=== PATIENT | female | born 1995 | race Caucasian/White ===

== ENCOUNTER 2022-06-02 12:36 | Emergency (ER) | payer OTHER, SELFPAY ==
--- NOTE | ~2022-06-02 | XR_ITS ---
EXAMINATION: XR chest 2V DATE: 06/02/2022 13:09 INDICATION: Right-sided chest pain TECHNIQUE: PA and lateral views of the chest are obtained. COMPARISON: 01/16/2019 FINDINGS: The lungs are free of acute opacities. No pleural effusion or pneumothorax. The cardiomedia stinal silhouette is normal. The visualized bones and soft tissues are unremarkable. IMPRESSION: 1. No acute cardiopulmonary abnormality. Reviewed, dictated and finalized at location A.
[2022-06-02 12:40] VITALS: BP 105/65; PULSE 65; RESP 16; TEMP 36.7; O2SAT 100
--- NOTE | 2022-06-02 13:01 | ECG_ITS ---
Measurements Intervals [place] Rate: 63 P: 74 WV: 172 QRS: 6 QRSD: 130 T: 42 QT: 417 QTc: 428 Interpretive Statements SINUS RHYTHM RIGHT BUNDLE BRANCH BLOCK ABNORMAL ECG NO PREVIOUS ECG AVAILABLE FOR COMPARISON Electronically Signed On 06-02-2022 14:48:14 CDT by Danilo Shi M.D.
--- NOTE | 2022-06-02 13:01 | ED.GENADULT ---
HPI - General Adult General Chief complaint: Chest Pain Stated complaint: Right Side Pain Source: patient Mode of arrival: ambulatory Limitations: no limitations History of Present Illness HPI narrative: Patient presents for evaluation of right-sided chest pain for the last 4 days. She indicates pain is intermittent, particularly noticeable with inspiration, sneezing, coughing, movement. She cannot identify any precipitating cause or injury. She had similar pain in the past with rib fractures. She states her maternal grandmother had breast cancer and her mom underwent preventative bilateral mastectomy. Patient does perform home self breast exams and they have been normal. She also had a breast exam at her [facility] approximately 2 months ago which was normal. No discharge from the nipple. No redness. She tried taking 400 mg of ibuprofen without much improvement in her symptoms or after. At rest she has a dull aching sensation rated 4/10 in severity, but with inspiration/sneezing/movement, her pain increases to a 7 out of 10 in severity and feels sharp. No significant cough or SOB. She had COVID in the summer of 2020. No additional complaints or concerns. Related Data Home Medications Medication Instructions Recorded Confirmed adgmuaiouhlq-Ru-bxbd-minerals 27 1 tablet PO DAILY 04/16/22 04/29/22 mg-0.4 mg tablet (One Daily Women's) Allergies Allergy/AdvReac Type Severity Reaction Status Date / Time Penicillins Allergy Severe Hives / Verified 06/02/22 12:52 Red Face amoxicillin Allergy Intermediate Hives Verified 06/02/22 12:52 Review of Systems Review of Systems: CONSTITUTIONAL: Denies fever, chills, or sweats. EYES: Denies visual changes, redness, or discharge. ENT: Denies rhinorrhea, congestion, sore throat, or otalgia. CARDIOVASCULAR: Reports right sided chest pain. Denies palpitations, or edema. RESPIRATORY: Denies cough or dyspnea. GASTROINTESTINAL: Denies abdominal pain, nausea, vomiting, or diarrhea. GENITOURINARY: Denies dysuria or hematuria. SKIN: Denies rash or itching. MUSCULOSKELETAL: Denies back pain, joint pain, or myalgia. NEUROLOGIC: Denies headache, numbness, dizziness, or weakness. PSYCHIATRIC: Denies anxiety or depression. [facility] Past Medical History Medical History (Updated 06/02/22 @ 13:29 by Lalo Miller, [employer], ) History of HPV infection Surgical History Surgical History No pertinent past surgical history Family History Family History Grandparent Breast cancer Other Carcinoma of colon Social History Social History Smoking status: Never smoker Alcohol intake: current Alcohol use details: social Substance use: never Living arrangements: with family Gender identity (if verbalized by the patient): Female Sexual Orientation (if Verbalized by the Patient): Straight or Heterosexual Spiritual care concerns: No Exam Narrative: GENERAL: Well-appearing, well-nourished, and in no acute distress. HEAD: Normocephalic, atraumatic. EYES: PERRLA and EOMI. ENT: Nares clear, no rhinorrhea or epistaxis. Mucous membranes moist. Oropharynx without tonsillar hypertrophy exudate or other lesions. Bilateral TMs pearly gómez nonbulging NECK: Supple. No adenopathy or masses. No carotid bruits or JVD CHEST: Clear to auscultation. No respiratory distress. No wheezes rales or rhonchi BREAST: exam performed in company of nurse, Candie. There is tenderness in right breast from 7-11 o'clock positions. There is no palpable mass. No redness. No peau d'orange. No discharge or drainage. HEART: Regular rate and rhythm. No murmur heard. Normal peripheral pulses. ABDOMEN: Soft, nontender, nondistended, normal active bowel sounds. EXTREMITIES: Normal range of motion. No edema. SKIN: Warm, dry, no jacob
== END 2022-06-02 13:31 | disposition home or self-care (01) ==
PROVIDERS: Emergency Provider Nurse Practitioner
DX: R07.89 Other chest pain (principal); I45.10 Unspecified right bundle-branch block
CPT/HCPCS: 71046; 93005; 99213; G0463

== ENCOUNTER 2022-06-03 10:50 | Emergency (ER) | payer OTHER, SELFPAY ==
[2022-06-03] VITALS (26 sets, daily range): BP systolic 100–124; BP diastolic 54–76; PULSE 63–75; RESP 14–19; TEMP 36.9; O2SAT 99–100
--- NOTE | ~2022-06-03 | XR_ITS ---
EXAMINATION: XR chest 2V DATE: 06/03/2022 11:44 INDICATION: Chest pain TECHNIQUE: PA and lateral views of the chest are obtained. COMPARISON: 06/02/2022 FINDINGS: The lungs are free of acute opacities. No pleural effusion or pneumothorax. The cardiomedia stinal silhouette is normal. The visualized bones and soft tissues are unremarkable. IMPRESSION: 1. No acute cardiopulmonary abnormality. Reviewed, dictated and finalized at location A.
--- NOTE | 2022-06-03 11:01 | ECG_ITS ---
Measurements Intervals [place] Rate: 66 P: 78 ID: 171 QRS: -2 QRSD: 125 T: 44 QT: 399 QTc: 418 Interpretive Statements SINUS RHYTHM INCOMPLETE RIGHT BUNDLE-BRANCH BLOCK COMPARED TO ECG 06/02/2022 13:19:33 NO SIGNIFICANT CHANGES Electronically Signed On 06-03-2022 14:04:44 CDT by Judson Allen M.D.
--- NOTE | 2022-06-03 11:15 | ED.OVERDOSE ---
HPI - Overdose General Chief Complaint: Overdose Stated Complaint: pt took 8 muscle relaxers Time Seen by Provider: 06/03/22 10:58 History of Present Illness HPI Narrative: 26-year-old female presents emergency room for evaluation of suspected overdose. Patient was accompanied by her significant other to the emergency room. History was obtained from both the patient and her significant other. Patient states that her and her significant other have been in a disagreement for the last 2 weeks, and she became angry and admits to taking 5-8 10 mg Flexeril tablets at about 930 this morning. Patient denies any known history of a suicidal ideation. Presently patient is complaining of being tired. Denies any other complaints at this time Related Data Home Medications Medication Instructions Recorded Confirmed gpnofuzkliro-Rd-tiwz-minerals 27 1 tablet PO DAILY 04/16/22 04/29/22 mg-0.4 mg tablet (One Daily Women's) Allergies Allergy/AdvReac Type Severity Reaction Status Date / Time Penicillins Allergy Severe Hives / Verified 06/02/22 12:52 Red Face amoxicillin Allergy Intermediate Hives Verified 06/02/22 12:52 Review of Systems Review of Systems: CONSTITUTIONAL: Denies fever, chills, or sweats. EYES: Denies visual changes, redness, or discharge. ENT: Denies rhinorrhea, congestion, sore throat, or otalgia. CARDIOVASCULAR: Denies chest pain, palpitations, or edema. RESPIRATORY: Denies cough or dyspnea. GASTROINTESTINAL: Denies abdominal pain, nausea, vomiting, or diarrhea. GENITOURINARY: Denies dysuria or hematuria. SKIN: Denies rash or itching. MUSCULOSKELETAL: Denies back pain, joint pain, or myalgia. NEUROLOGIC: Denies headache, numbness, dizziness, or weakness. PSYCHIATRIC: Reports depression. [facility] Past Medical History Medical History History of HPV infection Surgical History Surgical History No pertinent past surgical history Family History Family History Grandparent Breast cancer Other Carcinoma of colon Social History Social History Smoking status: Never smoker Alcohol intake: current Alcohol use details: social Substance use: never Gender identity (if verbalized by the patient): Female Sexual Orientation (if Verbalized by the Patient): Straight or Heterosexual Spiritual care concerns: No Exam Narrative: GENERAL: Well-appearing, well-nourished, no physical limitations, and in no acute distress. HEAD: Normocephalic, atraumatic. EYES: Conjunctivae normal, PERRLA and EOMI. ENT: External nose normal, Nares clear, no rhinorrhea or epistaxis. Mucous membranes moist. Oropharynx without tonsillar hypertrophy exudate or other lesions. External ears normal, bilateral TMs normal bilaterally NECK: Supple. CHEST: Clear to auscultation. No respiratory distress. No wheezes rales or rhonchi. No tenderness. HEART: Regular rate and rhythm. No murmur heard. Normal peripheral pulses. ABDOMEN: Soft, nontender, nondistended, normal active bowel sounds. BACK: No CVA tenderness; No cervical/thoracic/lumbar tenderness, step-offs, bony abnormality; FROM EXTREMITIES: Normal range of motion. No edema. No clubbing or cyanosis SKIN: Warm, dry, no rash. No noted wounds NEURO: No focal deficits. Alert and oriented x3. MAEW. CN's II-XI intact bilaterally, normal gait PSYCH: Cooperative. Normal mood and affect. Course Course Emergency Course: 1200: Poison control called and discussed case. They recommend symptomatic management and patient can be cleared 4-6 hours following ingestion. Vital Signs Vital signs: Vital Signs Temperature 36.9 C 06/03/22 10:57 Pulse Rate 71 06/03/22 10:57 Respiratory Rate 16 06/03/22 10:57 Blood Pressure 124/76 06/03/22 10:57 Pulse Oxi
[2022-06-03 11:32] LABS: Basophils Percent Auto 0.6 % (0.2-1.2); Eosinophils Absolute Auto 0.1 K/mm3 (0-0.3); Eosinophils Percent Auto 1.2 % (0-4.4); Hematocrit 35.9 % (37.0-47.0); Hemoglobin 11.5 g/dL (12.0-15.0); Immature Granulocyte Absolute 0.01 K/mm3 (0.00-0.031); Immature Granulocyte Percent A 0.2 % (0-0.5); Lymphocytes Absolute Auto 1.56 K/mm3 (0.9-3.2); Lymphocytes Percent Auto 30.5 % (18.3-44.2); Mean Corpuscular Volume 90.4 fl (80-100); Mean Platelet Volume 10.2 fl (7.4-10.4); Monocytes Absolute Auto 0.3 K/mm3 (0.1-0.6); Monocytes Percent Auto 4.9 % (2.6-8.5); Neutrophils Absolute Auto 3.2 K/mm3 (1.3-6.7); Neutrophils Percent Auto 62.6 % (45.5-73.1); Platelet Count Result 219 k/mm3 (150-375); Red Blood Count 3.97 M/mm3 (4.2-5.4); Red Cell Distribution Width 13.7 % (11.5-14.5); White Blood Count 5.1 K/mm3 (4.5-10.0)
--- NOTE | 2022-06-03 11:40 | PC.NURSE ---
poison control called at [id number]. spoke with Mary.
[2022-06-03 11:43] LABS: Acetaminophen < 10 ug/mL (10-30); Ethanol < 10 mg/dL (<10); Salicylate < 1.0 mg/dL (2-20)
--- NOTE | 2022-06-03 11:44 | PC.NURSE ---
patient has 5-10mg cyclobenzaprine and 14-800mg ibuprofen that has been given to rn discharge to lock up at this time.
[2022-06-03 11:45] LABS: Alanine Aminotransferase 11 U/L (6-35); Albumin Level 4.7 g/dL (3.5-5.1); Alkaline Phosphatase 52 U/L (38-126); Anion Gap 10 mmol/L (8-16); Aspartate Amino Transferase 20 U/L (14-36); Bilirubin,Total 0.7 mg/dL (0.2-1.3); Blood Urea Nitrogen 13 mg/dL (7-17); Calcium 8.7 mg/dL (8.4-10.2); Carbon Dioxide 28 mmol/L (22-30); Chloride 105 mmol/L (98-107); Estimated CRCL calculation 96 ml/min; Estimated Glomerular Filt Rate > 60; Glucose 96 mg/dL (65-110); Potassium 3.7 mmol/L (3.4-5.0); Sodium 143 mmol/L (137-145)
--- NOTE | 2022-06-03 11:49 | PC.NURSE ---
correction: medication given to boyfriend in the room to take home
[2022-06-03 11:52] LABS: Add Urine Microscopic? YES; Appearance Urine Cloudy (Clear); Bilirubin Urine 1+ (Negative); Blood Urine 3+ (Negative); Color Urine Red (Yellow); Glucose Urine UA Negative (Negative); Ketones Urine 1+ mg/dL (Negative); Leukocyte Esterase Ur 3+ LEU/UL (Negative); Nitrate Urine Positive (Negative); Protein Urine 3+ mg/dL (Negative)
[2022-06-03 11:59] LABS: Troponin I < 0.012 ng/mL (0.000-0.034)
[2022-06-03 11:59] LABS: Bacteria Urine Trace /hpf; RBC Urine >75 /hpf (0-2); Squamous Epithelial Cell Urine Few /hpf (Few); WBC Urine 31-50 /hpf
[2022-06-03 12:59] LABS: Amphetamine Screen Urine Negative (Negative); Barbiturate Screen Urine Negative (Negative); Benzodiazepines Screen Urine Negative (Negative); Cannabinoid Screen Urine Negative (Negative); Cocaine Screen Urine Negative (Negative); Methadone Screen Urine Negative (Negative); Opiate Screen Urine Negative (Negative); Phencyclidine Screen Urine Negative (Negative)
[2022-06-03] MEDS: NITROFURANTOIN MONOHYD MACROCR 100 MG CAP PO (13:12)
--- NOTE | 2022-06-03 15:18 | PC.NURSE ---
spoke with Mi from poison control and she feels comfortable with discharging the patient. states she does not need to follow up further. patient is alert and awake.
--- NOTE | 2022-06-03 15:32 | PC.NURSE ---
spoke with crisis and they will be sending someone out to speak with patient GULSHAN
== END 2022-06-03 16:54 | disposition home or self-care (01) ==
PROVIDERS: Emergency Provider Nurse Practitioner Family
DX: T48.1X2A Poisoning by skeletal muscle relaxants [neuromuscular blocking agents], intentional self-harm, initial encounter (principal); N39.0 Urinary tract infection, site not specified
CPT/HCPCS: 36415; 71046; 80053; 80307; 81001; 84484; 85025; 87086; 87088; 93005; 99284; A9270

== ENCOUNTER 2023-08-06 20:01 | Observation (INO) | payer OTHER, SELFPAY ==
--- NOTE | ~2023-08-06 | MR_ITS ---
EXAMINATION: MR orbits face neck wo/w con DATE: 08/08/2023 09:24 INDICATION: Peripheral vision loss in the left eye. TECHNIQUE: Magnetic resonance imaging (MRI) of the orbits was performed without and with 13 mL Multih ance intravenous contrast. Small zwcpg-gu-pruj sequences of the orbits included coronal and axial T2- weighted FS FSE, T1-weighted FSE and postcontrast T1-weighted FS FSE. COMPARISON: MRI dated 08/07/2020 FINDINGS: Orbits are normal. Symmetric small amount of fluid in the subarachnoid space surrounding the distal a spect of the optic nerves which is within normal limits with the optic nerve sheaths measuring less t monae 5 mm in diameter. No abnormal thickening, T2 signal or enhancement along the bilateral optic nerv es. As well as portions of the brain appear normal with no intraparenchymal signal abnormalities, mas ses or abnormal enhancement. The basal cisterns including the suprasellar cistern are normal. Flow vo ids are seen in the cerebral arteries on the T2-weighted sequences consistent with their expected pat ency. Ventricles are normal and symmetric. IMPRESSION: 1. Normal MRI of the orbits. Reviewed, dictated and finalized at location A.
--- NOTE | ~2023-08-06 | XR_ITS ---
EXAMINATION: XR chest 1V portable DATE: 08/06/2023 22:05 INDICATION: Cerebrovascular accident. TECHNIQUE: A single frontal view of the chest was obtained. COMPARISON: Chest 2 views 06/03/2022 FINDINGS: There is mild scarring at the lung apices. A calcified left lung nodule is consistent with old granulomatous disease. No pleural effusion or pneumothorax. The heart size is normal. There is a closure device in the heart. IMPRESSION: 1. Stable mild scarring at the lung apices. Reviewed, dictated and finalized at location E.
--- NOTE | ~2023-08-06 | CT_ITS ---
EXAMINATION: CT brain wo con DATE: 08/06/2023 20:33 INDICATION: Transient ischemic attack. TECHNIQUE: Computed tomography (CT) of the head was performed without intravenous contrast. The mA wa s adjusted according to patient size. Iterative reconstruction technique was employed. The dose-lengt h product was 605.33 mGy-cm. COMPARISON: None FINDINGS: There is no intracranial hemorrhage, acute infarction, or abnormal intracranial mass lesion . The ventricles are normal in size. The paranasal sinuses are clear. The orbits are normal. The mast oid air cells are normal. There is right frontal scalp soft tissue swelling. IMPRESSION: 1. Normal brain. Reviewed, dictated and finalized at location E. IMPRESSION: 1. Normal brain.
--- NOTE | ~2023-08-06 | MR_ITS ---
EXAMINATION: MR brain/brain stem wo/w con DATE: 08/07/2023 09:55 INDICATION: Transient ischemic episode with left superior homonymous quadrantanopia TECHNIQUE: Magnetic resonance imaging (MRI) of the brain and brainstem was performed without and with 13 mL Multihance intravenous contrast. Sequences included sagittal and axial T1-weighted SE, axial d iffusion-weighted FS SE, axial 3D SWAN, axial T2-weighted FLAIR, and axial T2-weighted FSE. Postcontr ast axial and coronal T1-weighted SE was obtained. Apparent diffusion coefficient (ADC) maps were cre ated. COMPARISON: None. FINDINGS: There are no areas of restricted diffusion to suggest acute infarction. No intracranial hemorrhage or abnormal intracranial mass lesion. There are no intraparenchymal signal abnormalities seen on the ot her pulse sequences. The ventricles are symmetric and normal in size. Basal cisterns including the cain prasellar cistern are patent. No abnormal mass lesions along the course of the optic nerves/visual pa thways. There are no abnormal extra-axial fluid collections. Flow voids are seen in the cerebral kenia anum on the T2-weighted sequences consistent with their expected patency. Visualized orbits and soft tissues are unremarkable. There are no areas of abnormal enhancement on the post contrast images. IMPRESSION: 1. Normal brain MR. Reviewed, dictated and finalized at location A. IMPRESSION: 1. Normal brain MR.
--- NOTE | ~2023-08-06 | CT_ITS ---
CT ANGIOGRAM NECK AND HEAD History: TIA, left-sided vision loss. Technique: Axial noncontrast imaging of the brain was performed. Serial spiral axial images through t he head and neck were then obtained during arterial phase IV injection of 100 cc of Omnipaque 350. 3- D postprocessing and MIP images were then reconstructed on the remote workstation. Dose reduction talisha hnique was used on this scan by utilizing automated exposure control and iterative reconstruction talisha hnique. The dose-length product (DLP) was 1658.39 mGy-cm. CTA neck findings: Bilateral vertebral origins are patent. Bilateral common carotid, internal caroti d, and external carotid arteries are patent. No large vessel occlusion. No stenosis or aneurysm. The proximal right internal carotid artery demonstrates 0% stenosis relative to the normal distal artery lumen diameter. The proximal left internal carotid artery demonstrates 0% stenosis relative to the no rmal distal artery lumen diameter. CTA head findings: Distal vertebral bodies, basilar artery, and posterior cerebral arteries are paten t. Distal internal carotid arteries, middle cerebral arteries, and anterior cerebral arteries are pat ent. No large vessel occlusion. No stenosis or aneurysm. Axial noncontrast imaging of the brain is unremarkable. No acute infarct, intracranial hemorrhage or mass lesion identified. Ventricles and subarachnoid spaces are unremarkable. Rodgers-white differentiati on preserved. Paranasal sinuses and mastoid air cells are clear. Impression: Unremarkable exam. Reviewed, dictated and finalized at location . Impression: Unremarkable exam.
--- NOTE | ~2023-08-06 | MR_ITS ---
EXAMINATION: MRA brain wo con DATE: 08/07/2023 09:55 INDICATION: Transient ischemic episode with left superior homonymous quadrantanopia TECHNIQUE: Magnetic resonance angiography (MRA) of the brain was performed without intravenous contrast by the 3 D [id number] technique. COMPARISON: None. FINDINGS: There is normal flow related signal seen within the vertebral, basilar and internal carotid arteries. The left vertebral artery is dominant. There is no proximal stenosis. There are no aneurysms identif ied. Both A1 and P1 segments are patent. The right P1 segment is diminutive with larger caliber corcoran nt right posterior communicating artery contributing to supply of the right posterior cerebral artery . There also appears to be patent anterior communicating artery. Flow in the cerebral arteries is sym metric. IMPRESSION: 1. Normal brain MR angiogram. Reviewed, dictated and finalized at location A.
[2023-08-06 20:18] VITALS: BP 127/71; PULSE 78; RESP 12; TEMP 37.2; O2SAT 98
[2023-08-06 20:25] LABS: Glucose Point of Care 100 mg/dl (65-105)
--- NOTE | 2023-08-06 20:36 | ECG_ITS ---
Measurements Intervals [place] Rate: 78 P: 71 IN: 183 QRS: 25 QRSD: 129 T: 34 QT: 377 QTc: 430 Interpretive Statements SINUS RHYTHM INDETERMINATE AXIS RIGHT BUNDLE BRANCH BLOCK [120+ ms QRS DURATION, UPRIGHT V1, 40+ ms S IN I/aVL/V4/V5/V6] ABNORMAL ECG COMPARED TO ECG 06/03/2022 11:02:26 RIGHT BUNDLE-BRANCH BLOCK NOW PRESENT Electronically Signed On 08-07-2023 17:10:40 CDT by Danilo Shi M.D.
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
[2023-08-06 21:14] LABS: Basophils Percent Auto 0.6 % (0.2-1.2); Eosinophils Absolute Auto 0.1 K/mm3 (0-0.3); Hematocrit 34.4 % (37.0-47.0); Immature Granulocyte Absolute 0.02 K/mm3 (0.00-0.031); Immature Granulocyte Percent A 0.3 % (0-0.5); Lymphocytes Absolute Auto 2.26 K/mm3 (0.9-3.2); Lymphocytes Percent Auto 36.2 % (18.3-44.2); Mean Corpuscular Hemoglobin 28.3 pg (26-34); Mean Corpuscular Volume 88.4 fl (80-100); Mean Platelet Volume 10.4 fl (7.4-10.4); Monocytes Absolute Auto 0.4 K/mm3 (0.1-0.6); Monocytes Percent Auto 6.7 % (2.6-8.5); Neutrophils Absolute Auto 3.4 K/mm3 (1.3-6.7); Neutrophils Percent Auto 55.2 % (45.5-73.1); Platelet Count Result 224 k/mm3 (150-375); Red Blood Count 3.89 M/mm3 (4.2-5.4); Red Cell Distribution Width 13.5 % (11.5-14.5); White Blood Count 6.2 K/mm3 (4.5-10.0)
[2023-08-06 21:29] LABS: Alanine Aminotransferase 14 U/L (6-35); Albumin Level 4.6 g/dL (3.5-5.1); Alkaline Phosphatase 45 U/L (38-126); Anion Gap 6 mmol/L (8-16); Aspartate Amino Transferase 21 U/L (14-36); Bilirubin,Total 0.6 mg/dL (0.2-1.3); Blood Urea Nitrogen 12 mg/dL (7-17); Calcium 9.1 mg/dL (8.4-10.2); Carbon Dioxide 29 mmol/L (22-30); Chloride 103 mmol/L (98-107); Estimated CRCL calculation 108 ml/min; Estimated Glomerular Filt Rate > 60; Glucose 98 mg/dL (65-110); Potassium 3.4 mmol/L (3.4-5.0); Sodium 138 mmol/L (137-145)
[2023-08-06 21:32] LABS: INR 1.1; Prothrombin Time 14.4 Seconds (11.1-14.7)
[2023-08-06 21:37] LABS: Troponin I < 0.012 ng/mL (0.000-0.034)
[2023-08-06 21:52] VITALS: BP 118/76; PULSE 70; RESP 15; O2SAT 100
[2023-08-07 00:02] VITALS: BP 121/79; PULSE 75; RESP 15; TEMP 36.4; O2SAT 100; BMI 21.0
--- NOTE | 2023-08-07 00:07 | ADMGEN ---
This patient, Cesilia Easley, was admitted to [facility] Surg Room 311-01. Patient/family oriented to hospital policies and general routines including ID bracelet, bed and alarms, visiting hours, pain management, procedures, bathroom and other care routines, personal items, smoking policy, room service/diet, and visiting hours. Information on how to activate the Rapid Response Team has been discussed. Patient/Family are encouraged to report perceived risks to care and to ask questions if they do not understand what they are told or what they should do.
[2023-08-07 06:00] VITALS: BP 111/53; PULSE 65; RESP 15; TEMP 36.4; O2SAT 99
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
[2023-08-07] MEDS: CLOPIDOGREL BISULFATE 75 MG TABLET PO (08:27)
[2023-08-07] MEDS: ASPIRIN 81 MG CHEWABLE TABLET PO (08:27)
[2023-08-07 08:39] LABS: Basophils Percent Auto 0.7 % (0.2-1.2); Eosinophils Absolute Auto 0.1 K/mm3 (0-0.3); Eosinophils Percent Auto 1.2 % (0-4.4); Hematocrit 36.1 % (37.0-47.0); Hemoglobin 11.2 g/dL (12.0-15.0); Immature Granulocyte Absolute 0.01 K/mm3 (0.00-0.031); Immature Granulocyte Percent A 0.2 % (0-0.5); Lymphocytes Percent Auto 36.9 % (18.3-44.2); Mean Corpuscular Hemoglobin 27.9 pg (26-34); Mean Corpuscular Volume 89.8 fl (80-100); Mean Platelet Volume 10.5 fl (7.4-10.4); Monocytes Absolute Auto 0.3 K/mm3 (0.1-0.6); Monocytes Percent Auto 7.1 % (2.6-8.5); Neutrophils Absolute Auto 2.3 K/mm3 (1.3-6.7); Neutrophils Percent Auto 53.9 % (45.5-73.1); Platelet Count Result 219 k/mm3 (150-375); Red Blood Count 4.02 M/mm3 (4.2-5.4); Red Cell Distribution Width 13.3 % (11.5-14.5); White Blood Count 4.3 K/mm3 (4.5-10.0)
[2023-08-07 08:48] LABS: Anion Gap 6 mmol/L (8-16); Blood Urea Nitrogen 11 mg/dL (7-17); Calcium 8.9 mg/dL (8.4-10.2); Carbon Dioxide 25 mmol/L (22-30); Chloride 106 mmol/L (98-107); Estimated CRCL calculation 105 ml/min; Estimated Glomerular Filt Rate > 60; Glucose 92 mg/dL (65-110); Potassium 3.6 mmol/L (3.4-5.0); Sodium 137 mmol/L (137-145)
[2023-08-07 08:55] LABS: Partial Thromboplastin Time 26.8 SECONDS (22.3-36.8)
[2023-08-07] MEDS: SERTRALINE HCL 50 MG TABLET PO (10:05)
[2023-08-07] MEDS: TOPIRAMATE 25 MG TABLET 50 MG PO ×2 (10:05→16:31)
[2023-08-07] MEDS: FERROUS SULFATE 325 MG TABLET DR BY MOUTH (10:05)
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
[2023-08-07 12:00] VITALS: BP 93/46; PULSE 60; RESP 14; TEMP 36.1; O2SAT 98
[2023-08-07 20:20] VITALS: BP 117/54; PULSE 58; RESP 16; TEMP 36.6; O2SAT 99
[2023-08-07] MEDS: ATORVASTATIN 10 MG TABLET PO (21:27)
[2023-08-08 04:41] VITALS: BP 101/47; PULSE 60; RESP 16; TEMP 36.4; O2SAT 98
[2023-08-08] MEDS: SERTRALINE HCL 50 MG TABLET PO (08:47)
[2023-08-08] MEDS: FERROUS SULFATE 325 MG TABLET DR BY MOUTH (08:47)
[2023-08-08] MEDS: CLOPIDOGREL BISULFATE 75 MG TABLET PO (08:47)
[2023-08-08] MEDS: TOPIRAMATE 25 MG TABLET 50 MG PO (08:47)
[2023-08-08] MEDS: ASPIRIN 81 MG CHEWABLE TABLET PO (08:47)
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
--- NOTE | 2023-08-08 11:21 | PC.NURSE ---
IV out, patient signed d/c papers, denies questions. going home by private car, walking out with friend who will be taking her home. all belongings returned.
== END 2023-08-08 11:20 | disposition home or self-care (01) ==
LOC: ANHED 21:31 → ANH3MEDSUR 23:20
PROVIDERS: Nurse Practitioner; Admitting Provider Internal Medicine; Emergency Provider Student in an Organized Health Care Education/Training Program; PCP Internal Medicine; Visit Provider Chiropractor
DX: H53.462 Homonymous bilateral field defects, left side (principal); R22.0 Localized swelling, mass and lump, head; V49.50XA Passenger injured in collision with unspecified motor vehicles in traffic accident, initial encounter; W22.12XA Striking against or struck by front passenger side automobile airbag, initial encounter; R94.31 Abnormal electrocardiogram [ECG] [EKG]; J98.4 Other disorders of lung; R11.2 Nausea with vomiting, unspecified; G43.909 Migraine, unspecified, not intractable, without status migrainosus; R07.9 Chest pain, unspecified; Q21.12 Patent foramen ovale; F10.90 Alcohol use, unspecified, uncomplicated; Z86.73 Personal history of transient ischemic attack (TIA), and cerebral infarction without residual deficits; Z91.52 Personal history of nonsuicidal self-harm; Z79.82 Long term (current) use of aspirin; Z79.02 Long term (current) use of antithrombotics/antiplatelets; Z79.899 Other long term (current) drug therapy
CPT/HCPCS: 36415; 70450; 70496; 70498; 70543; 70544; 70553; 71045; 80048; 80053; 82948; 84484; 85025; 85610; 85730; 93005; 99285; A9270; A9577; G0378; Q9967

== ENCOUNTER 2025-09-28 17:09 | Emergency (ER) | payer OTHER, SELFPAY ==
--- OUTSIDE RECORDS SUMMARY | 2024-04-03 15:30 | XMS_ITS ---
Author Organization [facility]ly [facility] ([address]) Address [address] [place] [address] Care Team Providers Care Superintendent Plant Name Role Phone Taylor Sanchez Primary Care Provider UnavailAkin Garcia Unavailable [phone] Jacek Linn Unavailable Unavailable ZZ-Migration, Provider Unavailable Unavailab le Allergies Allergen (clinical drug ingredient) Drug/Non Drug Allergy documented on EMR Reaction Allergy Type Onset Date Status penicillin G Penicillin G Sodium hives Drug Allergy Active penicillin V Penicillin V Potassium hives Drug Allergy Active Usk Tar Hives Drug Allergy Active predniSONE flushing Drug Allergy Active REASON FOR VISIT Multum To Medispan Conversion Encounter Medications Medication SIG (Take, Route, Frequency, Duration) Notes Start Date End Date Status Topamax 50 MG 1 tab(s) orally 2 times a day; Duration: 30 day(s) Active Plavix 75 MG 1 tab(s) orally once a day; Duration: 30 day(s) Active Sertraline HCl 50 MG 1 tab(s) orally once a day; Duration: 30 day(s) Active Lipitor 10 MG 1 tab(s) orally once a day; Duration: 30 day(s) Active Aspirin 81 MG 1 TAB(S) ORALLY ONCE A DAY; Duration: 30 DAY(S) *Please review and pick correct strength-formulation from Medispan options. If intended option is not shown, discontinue and re-order from Quick Search* Active Encounters Encounter Location Date Provider [place] [address] 04/03/2024 Provider Nato Plan Of Treatment No Information Progress Notes * Kofi MCKENNAB:[birth year] (30 yo F)Acc No.[id number]:04/03/2024 Patient: Cesilia DELGADO Provider: Berlin Kaur :1995 A ge:28 Y S ex:Female Date:04/03/2024 Address:[facility] [address] [id number] Pcp:Taylor Sanchez Subjective: * Chief Complaints: * 1 . Multum To Medispan Conversion Encounter. * Medical History: * Medications: T aking Aspirin 81 MG TABLET 1 TAB(S) ORALLY ONCE A DAY , Notes to Pharmacist: *Please review and pick correct strength-formulation from Medispan options. If intended option is not shown, discontinue and re-order from Quick Search*, Taking Lipitor 10 MG Tablet 1 tab(s) orally once a day , Taking Plavix 75 MG Tablet 1 tab(s) orally once a day , Taking Sertraline HCl 50 MG Tablet 1 tab(s) orally once a day , Taking Topamax 50 MG Tablet 1 tab(s) orally 2 times a day * Allergies: P ine Tar: Hives, predniSONE: flushing, Penicillin G Sodium: hives, Penicillin V Potassium: hives. Objective: * Vitals: Assessment: Plan: * Treatment: * Billing Information: * Visit Code: * Procedure Codes: * Electronic signature of Mahi cee ZZ-Migration on 09/28/2025 at 09:09 PM ACADEMIC ASSISTANT Sign off status: Pending * Provider: Berlin Kaur Date: 0 04/03/2024 Generated for Clementina lira/Davis/Dari on: 1 11/29/2024 09:09 PM ACADEMIC ASSISTANT
--- NOTE | ~2025-09-28 | XR_ITS ---
EXAMINATION: XR chest 2V DATE: 09/28/2025 18:04 INDICATION: Shortness of breath. TECHNIQUE: Frontal and lateral views of the chest were obtained. COMPARISON: Chest x-ray dated 08/06/2023 FINDINGS: Heart size is normal. Lungs are free of acute processes. Leidy and mediastinum are normal. Small granuloma in the periphery of mid left lung is stable. An interatrial septum occlusion device across noted on the prior examination of 08/06/2023 is not seen now. IMPRESSION: 1. No acute pulmonary findings. Reviewed, dictated and finalized at location T. TING INSPECTOR
[2025-09-28 17:14] VITALS: BP 122/70; PULSE 88; RESP 20; TEMP 36.5; O2SAT 100
--- NOTE | 2025-09-28 17:55 | ED_ITS ---
HPI - General Adult General Chief complaint: Chest Pain Stated complaint: Left Side Pain/Shortness of Breath/Dizziness Time Seen by Provider: 09/28/25 17:28 Source: patient, RN notes reviewed and old records reviewed Mode of arrival: ambulatory Limitations: no limitations History of Present Illness HPI narrative: 30 year old female who presents to [facility] care with complaints of having some left sided chest discomfort upper chest to below breast bone area since last evening while just lying on cough. Patient reports that she has had some sinus congestion since Friday and took some Zyrtec D this morning. Patient reports that she had PFO repair initially with metal closure at [facility] but had reaction to metal so they had to do thoracotomy and do Bovine repair was released by her cardiac surgeon Veronika in September of 2024. Patient reports that her pain is mainly with deep breathing. Patient reports that she was having some episodes of slight dizziness with her symptoms. Patient reports no shortness of breath or any diaphoresis , no nausea or vomiting. Patient reports that she worked all day today. Patient reports that she is not taking any cardiac medications at this time MD complaint: left sided chest pain, Onset (ago): day(s) (yesterday evening) Location: chest (left) Severity scale (1-10): 7 Treatments prior to arrival: none Related Data Allergies Allergy/AdvReac Type Severity Reaction Status Date / Time Penicillins Allergy Severe Hives / Verified 09/28/25 17:23 Red Face amoxicillin Allergy Intermediate Hives Verified 09/28/25 17:23 cobalt Allergy Chest Pain Verified 09/28/25 17:23 nickel Allergy Chest Pain Verified 09/28/25 17:23 titanium Allergy Chest Pain Verified 09/28/25 17:23 prednisone AdvReac Flushing Verified 09/28/25 17:23 Review of Systems Review of Systems: CONSTITUTIONAL: Denies fever, chills, or sweats. EYES: Denies visual changes, redness, or discharge. ENT: Denies rhinorrhea, congestion, sore throat, or otalgia. CARDIOVASCULAR: reports episodes of left upper chest pain down to left breast bone since last night, no palpitations, or edema. RESPIRATORY: Denies cough or dyspnea. GASTROINTESTINAL: Denies abdominal pain, nausea, vomiting, or diarrhea. GENITOURINARY: Denies dysuria or hematuria. SKIN: Denies rash or itching. MUSCULOSKELETAL: Denies back pain, joint pain, or myalgia. NEUROLOGIC: Denies headache, numbness, or weakness. PSYCHIATRIC: Denies anxiety or depression. All systems reviewed & are unremarkable except as noted in HPI and below PMFSH Past Medical History Medical History PFO (patent foramen ovale) History of TIA (transient ischemic attack) December 2022 Vaginal symptom History of HPV infection Surgical History Surgical History S/P patent foramen ovale closure March 2023 No pertinent past surgical history Family History Family History Grandparent Breast cancer Other Carcinoma of colon No pertinent past surgical history Social History Social History Smoking status: Never smoker Alcohol intake: current Drinks per week: 1 Alcohol use details: social Substance use: never Lack of Transportation: No Lack of Food: Never True Current Housing: I Have Housing Concerned About Future Housing: No Difficulty Paying Gas/Electric Bills: No Difficulty Paying for Meds: No Currently Unemployed: No Education: Associate Degree Difficulty w/ Childcare or Family Care: No Living arrangements: with family Gender identity (if verbalized by the patient): Female Sexual Orientation (if Verbalized by the Patient): Straight or Heterosexual Spiritual care concerns: No Comments At time of signature, agree with nursing past medical, surgical, social and family history. There is no relevant family history pertinent to the presenting complaint Exam Narrative: GENERAL: Well-appearing, well-nourished, and in no acute distress. HEAD: Normocephalic, atraumatic. EYES: PERRLA and EOMI. ENT: Nares clear, no rhinorrhea or epistaxis. Mucous membranes moist.TM's normal with throat pink without swelling NECK: Supple.no lymphadenopathy CHEST: Clear to auscultation. No respiratory distress. pain left chest no tachypnea or any retractions no cough noted SAO2 100% on room air HEART: Regular rate and rhythm. No murmur heard. Normal peripheral pulses.denies any palpitation nausea or any diaphoresis ABDOMEN: Soft, nontender, nondistended, normal active bowel sounds. EXTREMITIES: Normal range of motion. No edema. SKIN: Warm, dry, no rash. NEURO: No focal deficits. Alert and oriented x3.states some dizziness with her symptoms Course Course Level of Care: Express Care Visit Vital Signs Vital signs: Vital Signs Temperature 36.5 C 09/28/25 17:14 Pulse Rate 88 09/28/25 17:14 Respiratory Rate 20 09/28/25 17:14 Blood Pressure 122/70 09/28/25 17:14 Pulse Oximetry 100 09/28/25 17:14 Oxygen Delivery Room Air 09/28/25 17:14 Temperature 36.5 C 09/28/25 17:14 Pulse Rate 88 09/28/25 17:14 Respiratory Rate 20 09/28/25 17:14 Blood Pressure 122/70 09/28/25 17:14 Pulse Oximetry 100 09/28/25 17:14 Oxygen Delivery Room Air 09/28/25 17:14 reviewed Transfer Transfered to: [place] Transportation: Other (private car with family for further evaluation) Transfer rationale: pain with deep breathing chest pain to left side of chest history of repair PFO Accepting physician: Billy Transfer comments: To [place] ED with family member for further evaluation of chest pain with increase with deep breathing MDM MDM Narrative Medical decision making narrative: 30 year old female with 24 hour history of left sided chest pain with history of PFO repair and prior TIA. Patient requires further evaluation than can be performed in express care setting needs further labs and evaluation. Vs stable with lungs clear to auscultation increased discomfort voiced with deep breathing. 183 Transfer to ED at [facility] with report of patient present condition VS, PMH and testing done in express care to Jackie SORIANO with Dr Cervantes accepting patient for transfer. Patient awaiting family member to accompany to ED does not want to be transported via ambulance. Patient received 324 mg of aspirin while in express care. Differential Diagnosis Differential Diagnosis: Differential diagnostic considerations for chest pain?include?ACS, aortic dissection, pneumothorax, pulmonary embolus, sierra/pericarditis, angina, STEMI, esophageal abnormality, GI etiology, pneumonia, rib fracture, biliary colic, atypical/non-cardiac (MSK, etc). Imaging Data Attestation: I personally reviewed and interpreted this imaging study as follows: My impression: no acute cardiopulmonary findings Radiologist's impression: ITS Impressions Chest X-Ray 09/28/25 18:05 IMPRESSION: 1. No acute pulmonary findings. [address] [employer] [place] [id number] XRay Report Signed Patient: Cesilia Easley : 1995 MR#: [id number] Age: 30 Acct:[id number] Loc: [facility] ADM Date: 09/28/[address]: Ordering Physician: Carline Raya APRN Date of Service: 09/28/25 Procedure(s): XR chest 2V Accession Number(s): [id number] cc: Daniel, Taylor MCRAE; Carline Raya APRN~ EXAMINATION: XR chest 2V DATE: 09/28/2025 18:04 INDICATION: Shortness of breath. TECHNIQUE: Frontal and lateral views of the chest were obtained. COMPARISON: Chest x-ray dated 08/06/2023 FINDINGS: Heart size is normal. Lungs are free of acute processes. Leidy and mediastinum are normal. Small granuloma in the periphery of mid left lung is stable. An interatrial septum occlusion device across noted on the prior examination of 08/06/2023 is not seen now. IMPRESSION: 1. No acute pulmonary findings. Reviewed, dictated and finalized at location T. S INSTALLER TECHNICIAN Please be advised this is a medical document. It is intended for [id number] communication. It is written in medical language and may contain unfamiliar abbreviations or verbiage. Medical documents are intended to carry relevant information, facts as evident, and the clinical opinion of the practitioner at the time of the encounter. This report may have been done utilizing a voice recognition system. Attempts have been made to correct errors. However, there may be uncorrected grammatical, spelling, and recognition errors present. The file time of this note does not necessarily represent the time of service. Dictated By: Dilma Roth 09/28/25 1805 Signed By: <Electronically signed by Dilma Roth in OV> ECG Data EKG #1: Attestation: I personally reviewed and interpreted this ECG as follows: ECG completion date: 09/28/25 ECG completion time: 18:10 Prior ECG tracings: available for review Ischemic changes: other (inferior changes) Interpretation: sinus rhythm with incomplete RBBB, rate 82, MO 173ms, QRS 117ms,AS623hm normal rate, sinus rhythm and RBBB (incomplete) Critical Care Time Critical Care Time Critical Care Time: No Discharge Plan Discharge Clinical Impression: Atypical chest pain Patient Disposition: Acute Care Hospital Condition: Stable Patient Language: Montserratian Prescriptions: No Action cyclobenzaprine 5 mg tablet 5 mg PO TID PRN (Reason: muscle spasm) Qty: 20 0RF ibuprofen 800 mg tablet 800 mg PO TID PRN (Reason: pain) Qty: 30 0RF Follow-up/Referrals: Daniel,MD Taylor [Primary Care Provider, Unknown] Time of Disposition: 19:17 Quality [place] Coma Scale Eyes: Open Verbal: Oriented and Alert Motor: Follows Commands [place] Coma Total Score: 15
[2025-09-28] MEDS: ASPIRIN 81 MG CHEWABLE TABLET 324 MG PO (18:31)
--- OUTSIDE RECORDS SUMMARY | 2025-09-28 21:07 | XMS_ITS | Encounter Summary ---
Author Organization [facility] Address [address] [place] [address] Care Team Providers Care Oral Therapist Name Role Phone Taylor Sanchez MD Primary Care Provider [phone] Encounter Details Date Type Department Care Team (Late st Contact Info) Description 01/09/2004 Outpatient Historical [facility] Pediatrics - [address] [facility] [address] [facility] [address] [address] Kurtis Soto MD NO ADDRESS ON FILE Social History Tobacco Use Types Packs/Day Years Used Date Smoking Tobacco: Never Assessed Comments Unknown Sex and Gender Information Value Date Recorded Sex Assigned at Not on file 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 [place] [phone] documented as of this encounter Visit Diagnoses Not on filedocumented in this encounter Care Teams Oral Therapist Relationship Specialty Start Date End Date Taylor Sanchez MD [address] [place] [address] PCP - General Internal Medicine 02/15/25 documented as of this encounter
--- OUTSIDE RECORDS SUMMARY | 2025-09-28 21:07 | XMS_ITS | Encounter Summary ---
Author Organization [facility] Address [address] [place] [address] Care Team Providers Care Car Varnisher Name Role Phone Taylor Sanchez MD Primary Care Provider [phone] Encounter Details Date Type Department Care Team (Late st Contact Info) Description 08/24/2003 Outpatient Historical [facility] Pediatrics - [address] [facility] [address] [facility] [address] [address] Kurtis Soto MD NO ADDRESS ON FILE Social History Tobacco Use Types Packs/Day Years Used Date Smoking Tobacco: Never Assessed Comments Unknown Sex and Gender Information Value Date Recorded Sex Assigned at Not on file 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 [place] [address] documented as of this encounter Visit Diagnoses Not on filedocumented in this encounter Care Teams Car Varnisher Relationship Specialty Start Date End Date Taylor Sanchez MD [address] [place] [address] PCP - General Internal Medicine 02/15/25 documented as of this encounter
--- OUTSIDE RECORDS SUMMARY | 2025-09-28 21:07 | XMS_ITS | Patient Health Record ---
Author Organization [facility] [employer] ([address]) Address [address] [place] [address] Care Team Providers Care Executive Recruiter Name Role Phone Taylor Sanchez Primary Care Provider UnavailAkin Garcia Unavailable [phone] Jacek Linn Unavailable Unavailable Allergies Allergen (clinical drug ingredient) Drug/Non Drug Allergy documented on EMR Reaction Allergy Type Onset Date Status penicillin G Penicillin G Sodium hives Drug Allergy Active penicillin V Penicillin V Potassium hives Drug Allergy Active [place] Tar Hives Drug Allergy Active predniSONE flushing Drug Allergy Active Reason For Referral No Information Medications Medication SIG (Take, Route, Frequency, Duration) Notes Start Date End Date Status Topamax 50 MG 1 tab(s) orally 2 times a day; Duration: 30 day(s) Active Plavix 75 MG 1 tab(s) orally once a day; Duration: 30 day(s) Active Sertraline HCl 50 MG 1 tab(s) orally once a day; Duration: 30 day(s) Active ASPIRIN 81 mg 1 tab(s) orally once a day; Duration: 30 day(s) Active PLAVIX 75 mg 1 tab(s) orally once a day; Duration: 30 day(s) Active Lipitor 10 MG 1 tab(s) orally once a day; Duration: 30 day(s) Active LIPITOR 10 mg 1 tab(s) orally once a day; Duration: 30 day(s) Active TOPAMAX 50 mg 1 tab(s) orally 2 times a day; Duration: 30 day(s) Active SERTRALINE 50 mg 1 tab(s) orally once a day; Duration: 30 day(s) Active Aspirin 81 MG 1 TAB(S) ORALLY ONCE A DAY; Duration: 30 DAY(S) *Please review and pick correct strength-formulation from [employer] Med options. 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) Active confirmed Problem Chest pain (14236632) Chest pain, unspecified (R07.9) Active confirmed Problem Eruption of skin (888078124) Rash and other nonspecific skin eruption (R21) Active confirmed Problem Allergy to penicillin (97139752) Allergy status to penicillin (Z88.0) Active confirmed Plan Of Treatment No Information Insurance Providers Payer Name Payer Address Payer Phone Subscriber Number Group Number Insured Name Patient Relationship to Insured Coverage Start Date Coverage End Date [facility] [address] [place] [phone] [id number] Slava Kumar Spouse - patient is the spouse of the insured Medical (General) History Medical History History ICD Code Personal history of transien t ischemic attack (TIA), and cerebral infarction without residual deficits Z86.73 Patent foramen ovale Q21.12 Surgical History Surgery Date(Month/Year) PFO Closure 03/25/2023 Hospitalization History Reason Date(Month/Year) TIA 12/25/2022 Childbirth 08/07/2019 Childbirth 02/25/2018 Childbirth 06/11/2013 Childbirth 06/14/2012
--- OUTSIDE RECORDS SUMMARY | 2025-09-28 21:07 | XMS_ITS | Encounter Summary ---
Author Organization [facility] Address [address] [place] [address] Care Team Providers Care Dog Licenser Name Role Phone aTylor Sanchez MD Primary Care Provider [phone] Encounter Details Date Type Department Care Team (Late st Contact Info) Description 02/22/2004 Outpatient Historical [facility] Pediatrics - [address] [facility] [address] [facility] [address] [address] Kurtis Soto MD NO ADDRESS ON FILE Social History Tobacco Use Types Packs/Day Years Used Date Smoking Tobacco: Never Assessed Comments Unknown Sex and Gender Information Value Date Recorded Sex Assigned at Not on file 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 [place] [address] documented as of this encounter Visit Diagnoses Not on filedocumented in this encounter Care Teams Dog Licenser Relationship Specialty Start Date End Date Taylor Sanchez MD [address] [place] [address] PCP - General Internal Medicine 02/15/25 documented as of this encounter
--- OUTSIDE RECORDS SUMMARY | 2025-09-28 21:07 | XMS_ITS | Encounter Summary ---
Author Organization [facility] Address [address] [place] [address] Care Team Providers Care Pill Maker Name Role Phone Taylor Sanchez MD Primary Care Provider [phone] Encounter Details Date Type Department Care Team (Late st Contact Info) Description 02/06/2023 Zyncdt Message Enc [facility] Multispecialty Care - [place] [address] [address] [place] [address] [place] [address] [place] [address] [address] [place] [address] ER Visit Social History Tobacco Use Types Packs/Day Years Used Date Smoking Tobacco: Never Smokeless Tobacco: Never Comments:counseled by Dr Dahlia liang Alcohol Use Standard Drinks/Week Comments Yes 0 (1 standard drink = 0.6 oz pur e alcohol) Wine-socially Humiliation, Afraid, Rape, and Kick questionnair e Answer Date Recorded Within the last year, have y ou been afraid of your partner or ex-partner? No 12/26/2022 Within the last year, have y ou been humiliated or emotionally abused in other ways by your partner or ex-partner? No Within the last year, have y ou been kicked, hit, slapped, or otherwise physically hurt by your partner or ex-partner? No 12/26/2022 Within the last year, have y ou been raped or forced to have any kind of sexual activity by your partner or ex-partner? No 12/26/2022 Overall Financial Resource Strain (CARDIA) Answe r Date Recorded How hard is it for you to pa y for the very basics like food, housing, medical care, and heating? Not very hard 12/26/2022 PHQ-2 Answer Date Recorded Patient Health Questionnaire-2 Score 0 11/11/2022 Hunger Vital Sign Answer Date Recorded Within the past 12 months, y ou worried that your food would run out before you got the money to buy more. Never true 12/27/19 Within the past 12 months, t he food you bought just didn't last and you didn't have money to get more. Never true 12/26/2022 PRAPARE - Transportation Answer Date Re corded In the past 12 months, has l ack of transportation kept you from medical appointments or from getting medications? No 06/2023 In the past 12 months, has l ack of transportation kept you from meetings, work, or from getting things needed for daily living? No 12/26/2022 Housing Stability Vital Sign Answer Sarath e Recorded In the last 12 months, was t here a time when you were not able to pay the mortgage or rent on time? No 12/26/2022 In the last 12 months, how many places have you lived? 1 12/26/2022 In the last 12 months, was t here a time when you did not have a steady place to sleep or slept in a nursing home (including now)? No 12/26/2022 Comments No Sex and Gender Information Value Date Recorded Sex Assigned at Female 02/22/2025 3:57 PM CDT Legal Sex Female 3:22 PM CDT Gender Identity Female 02/22/2025 3:57 PM CDT Sexual Orientation Straight 02/22/2025 3: 57 PM CDT Occupation Industry Job Start Date Job End Date Not on file Not on file Not on file Not on file COVID-19 Exposure Response Date Recorded In the last 10 days, have yo u been in contact with someone who was confirmed or suspected to have Coronavirus/COVID-19? No / Unsure 02/06/2023 4:08 PM CDT documented as of this encounter Functional Status * Are you deaf or do you have serious difficulty hearing Answer Date of Assessment Author Status No 12/26/2022 1:13 PM Tricia Roberson RN Active * Are you blind or do you have serious difficulty seeing, even when wearing glasses? Answer Date of Assessment Author Status No 12/26/2022 1:13 PM Tricia Roberson RN Active * Do you have serious difficulty walking or climbing stairs? Answer Date of Assessment Author Status No 12/26/2022 1:13 PM Tricia Roberson RN Active * Do you have difficulty dressing or bathing? Answer Date of Assessment Author Status No 12/26/2022 1:13 PM Tricia Roberson RN Active * Because of a physical, mental, or emotional condition, do you have difficulty doing errands alone such as visiting a doctor's office or shopping? Answer Date of Assessment Author Status No 12/26/2022 1:13 PM Tricia Roberson RN Active * Calculated C-SSRS Risk Score (Lifetime/Recent) Answer Date of Assessment Author Status No Risk Indicated 02/06/2023 4:40 PM Fanta Alvarez RN Active * Curtis Suicide Severity Rating Scale (Screener/Recent Self-Report) Question Answer Date of Assessment Author Status 1. Wish to be (Past 1 Month) No 02/06/2023 4:40 PM Ruma Alvarez, RN Ac tive 2. Non-Specific Active Suicidal Thoughts (Past 1 Month) No 02/06/2023 4:40 PM Ruma Alvarez, RN Ac tive 6. Suicidal Behavior (Lifetime) No 02/06/2023 4:40 PM Ruma Alvarez, RN Ac tive documented as of this encounter Mental Status * Because of a physical, mental, or emotional condition, do you have serious difficulty concentrating, remembering, or making decisions? Answer Entry Date Author Status No 12/26/2022 1:13 PM Tricia Roberson RN Active documented in this encounter Plan of Treatment Upcoming Encounters Date Type Department Care Team (Late st Contact Info) Description 10/28/2025 8:00 AM FUR MACHINE OPERATOR Office Visit [facility] Multispecialty Care - [address] [place] [address] Taylor Sanchez MD [address] [facility] [address] [place] [address] documented as of this encounter Goals Goal Patient Goal Type Associated Problems Recent Progress Patient-Stated? Author Patient will return to prior living situation and remain independent in ADLs upon discharge from hospital Lifestyle Pati Luu RN documented as of this encounter Visit Diagnoses Not on filedocumented in this encounter Care Teams Pill Maker Relationship Specialty Start Date End Date Taylor Sanchez MD [address] [facility] [address] [facility] [address] [place] [address] PCP - General INTERNAL MEDICINE 06/18/22 documented as of this encounter
--- OUTSIDE RECORDS SUMMARY | 2025-09-28 21:07 | XMS_ITS | Encounter Summary ---
Author Organization [facility] Address [address] [place] [address] Care Team Providers Care Flight Radio Officer Name Role Phone Taylor Sanchez MD Primary Care Provider [phone] Encounter Details Date Type Department Care Team (Late st Contact Info) Description 03/15/2004 Outpatient Historical [facility] Pediatrics - [address] [facility] [address] [facility] [address] [address] Kurtis Soto MD NO ADDRESS ON FILE Social History Tobacco Use Types Packs/Day Years Used Date Smoking Tobacco: Never Assessed Comments Unknown Sex and Gender Information Value Date Recorded Sex Assigned at Not on file 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 [place] [phone] documented as of this encounter Visit Diagnoses Not on filedocumented in this encounter Care Teams Flight Radio Officer Relationship Specialty Start Date End Date Taylor Sanchez MD [address] [place] [address] PCP - General Internal Medicine 02/15/25 documented as of this encounter
--- OUTSIDE RECORDS SUMMARY | 2025-09-28 21:07 | XMS_ITS | Encounter Summary ---
Author Organization [facility] Address [address] [place] [address] Care Team Providers Care Consulting Networking Engineer Name Role Phone Taylor Sanchez MD Primary Care Provider [phone] Encounter Details Date Type Department Care Team (Late st Contact Info) Description 11/30/2003 Outpatient Historical [facility] Pediatrics - [address] [facility] [address] 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 [place] [address] documented as of this encounter Visit Diagnoses Not on filedocumented in this encounter Care Teams Consulting Networking Engineer Relationship Specialty Start Date End Date Taylor Sanchez MD [address] [place] [address] PCP - General Internal Medicine 02/15/25 documented as of this encounter
--- OUTSIDE RECORDS SUMMARY | 2025-09-28 21:07 | XMS_ITS | Encounter Summary ---
Author Organization [facility] Address [address] [place] [address] Care Team Providers Care Street Light Inspector Name Role Phone Taylor Sanchez MD Primary Care Provider [phone] Encounter Details Date Type Department Care Team (Late st Contact Info) Description 01/07/2007 Outpatient Historical [facility] Pediatrics - [address] [facility] [address] 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 [place] [address] documented as of this encounter Visit Diagnoses Not on filedocumented in this encounter Care Teams Street Light Inspector Relationship Specialty Start Date End Date Taylor Sanchez MD [address] [place] [address] PCP - General Internal Medicine 02/15/25 documented as of this encounter
--- OUTSIDE RECORDS SUMMARY | 2025-09-28 21:07 | XMS_ITS | Encounter Summary ---
Author Organization [facility] Address [facility] [place] [address] Care Team Providers Care Technician Biological Health Name Role Phone Taylor Sanchez MD Primary Care Provider [phone] Encounter Details Date Type Department Care Team (Late st Contact Info) Description 03/11/2023 Hospital Orders Only [facility] Regional Wildlife Agent [address] [place] [address] Jacek Linn MD,PHD Social History Tobacco Use Types Packs/Day Years [...] money to buy more. Never true 12/27/19 23 Within the past 12 months, t he [...] place to sleep or slept in a fpc (including now)? No 12/26/2022 Comments No Sex [...] was confirmed or suspected to have Coronavirus/COVID-19? Unable to assess 03/14/2023 2:37 PM CDT documented as of this encounter Functional Status * Are you deaf or do you have serious difficulty hearing Answer Date of Assessment Author Status No 12/26/2022 1:13 PM Tricia Roberson RN Active * Are you blind or do you have serious difficulty seeing, even when wearing glasses? Answer Date of Assessment Author Status No 12/26/2022 1:13 PM Tricia Roberson, JULIAN Active * Do you have serious difficulty walking or climbing stairs? Answer Date of Assessment Author Status No 12/26/2022 1:13 PM Tricia Roberson, RN Active * Do you have difficulty dressing or bathing? Answer Date of Assessment Author Status No 12/26/2022 1:13 PM Tricia Roberson, JULIAN Active * Because of a physical, mental, or emotional condition, do you have difficulty doing errands alone such as visiting a doctor's office or shopping? Answer Date of Assessment Author Status No 12/26/2022 1:13 PM Tricia Roberson RN Active * Calculated C-SSRS Risk Score (Lifetime/Recent) Answer Date of Assessment Author Status No Risk Indicated 03/12/2023 10:29 AM Irasema Bhatia RN Active * [place] Suicide Severity Rating Scale (Screener/Recent Self-Report) Question Answer Date of Assessment Author Status 1. Wish to be (Past 1 Month) No 03/12/2023 10:29 AM Irasema Bhatia RN Active 2. Non-Specific Active Suicidal Thoughts (Past 1 Month) No 03/12/2023 10:29 AM Irasema Bhatia RN Active 6. Suicidal Behavior (Lifetime) No 03/12/2023 10:29 AM Irasema Bhatia RN Active documented as of this encounter Mental Status * Because of a physical, mental, or emotional condition, do you have serious difficulty concentrating, remembering, or making decisions? Answer Entry Date Author Status No 12/26/2022 1:13 PM Tricia Roberson RN Active documented in this encounter Plan of Treatment Upcoming Encounters Date Type Department Care Team (Late st Contact Info) Description 10/28/2025 8:00 AM PLASTIC BATTERY ASSEMBLER Office Visit [facility] Multispecialty Care - [place] [address] [address] [address] [place] [address] Taylor Sanchez MD [address] [place] [address] documented as of this encounter Goals Goal Patient Goal Type Associated Problems Recent Progress Patient-Stated? Author Patient will return to prior living situation and remain independent in ADLs upon discharge from hospital Lifestyle No Pati Brown RN documented as of this encounter Visit Diagnoses Not on filedocumented in this encounter Care Teams Technician Biological Health Relationship Specialty Start Date End Date Taylor Sanchez MD [address] [address] PCP - General INTERNAL MEDICINE 06/18/22 documented as of this encounter
--- OUTSIDE RECORDS SUMMARY | 2025-09-28 21:08 | XMS_ITS | Encounter Summary ---
Author Organization [facility] Address [address] [place] [address] Care Team Providers Care Chief Minister Name Role Phone Taylor Sanchez MD Primary Care Provider [phone] Encounter Details Date Type Department Care Team (Late st Contact Info) Description 10/19/[address] [facility] Pediatrics 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 and V[facility] - [place] [address] [place] [phone] Cesar Banda MD [address] [place] [address] documented as of this encounter Visit Diagnoses Not on filedocumented in this encounter Care Teams Chief Minister Relationship Specialty Start Date End Date Taylor Sanchez MD [address] [place] [address] PCP - General Internal Medicine 02/15/25 documented as of this encounter
--- OUTSIDE RECORDS SUMMARY | 2025-09-28 21:08 | XMS_ITS | Encounter Summary ---
Author Organization [facility] Address [address] [place] [address] Care Team Providers Care Coremaker Apprentice Name Role Phone Taylor Sanchez MD Primary Care Provider [phone] Encounter Details Date Type Department Care Team (Late st Contact Info) Description 02/19/2003 Outpatient Historical [facility] Pediatrics - 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 [place] [phone] documented as of this encounter Visit Diagnoses Not on filedocumented in this encounter Care Teams Coremaker Apprentice Relationship Specialty Start Date End Date Taylor Sanchez MD [address] [place] [address] PCP - General Internal Medicine 02/15/25 documented as of this encounter
--- OUTSIDE RECORDS SUMMARY | 2025-09-28 21:08 | XMS_ITS | Encounter Summary ---
Author Organization [facility] Address [address] [place] [address] Care Team Providers Care Clinical Psychologist Name Role Phone Taylor Sanchez MD Primary Care Provider [phone] Encounter Details Date Type Department Care Team (Late st Contact Info) Description 05/26/[address] 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 Heart and Vascular - [place] [address] [place] [address] Cesar Banda MD [address] [place] [phone] documented as of this encounter Visit Diagnoses Not on filedocumented in this encounter Care Teams Clinical Psychologist Relationship Specialty Start Date End Date Taylor Sanchez MD [address] [place] [address] PCP - General Internal Medicine 02/15/25 documented as of this encounter
--- OUTSIDE RECORDS SUMMARY | 2025-09-28 21:08 | XMS_ITS | Encounter Summary ---
Author Organization [facility] Address [facility] access hospital[address] [place] [address] Care Team Providers Care School Office Manager Name Role Phone Taylor Sanchez MD Primary Care Provider [phone] Encounter Details Date Type Department Care Team (Latest Contact Info) Description 06/18/2024 [employer] Message Enc [facility] Medical Group Multispecialty Care - [address] [place] [address] [employer], [facility] Provider ANNUAL PHYSICAL/FASTING LABS Social History Tobacco Use Types Packs/Day Years Used Date Smoking Tobacco: Never Smokeless Tobacco: Never Alcohol Use Standard Drinks/Week Comments Yes 0 [...] Date Recorded Patient Health Questionnaire-2 Score 0 05/31/2024 Hunger Vital Sign Answer Date Recorded Within [...] place to sleep or slept in a fci (including now)? No 12/26/2022 Comments No Sex and Gender Information Value Date Recorded Sex Assigned at Female 02/22/2025 3:57 PM CDT Legal Sex Female 3:22 PM CDT Gender Identity Female 02/22/2025 3:57 PM CDT Sexual Orientation Straight 02/22/2025 3: 57 PM CDT Occupation Industry Job Start Date Job End Date Not on file Not on file Not on file Not on file documented as of this encounter Functional Status [...] 1:13 PM Tricia Roberson RN Active documented as of this encounter Mental Status * Because of a physical, mental, or emotional condition, do you have serious difficulty concentrating, remembering, or making decisions? Answer Entry Date Author Status No 12/26/2022 1:13 PM Tricia Roberson RN Active documented in this encounter Plan of Treatment Upcoming Encounters Date Type Department Care Team (Late st Contact Info) Description 10/28/2025 8:00 AM CORPORATE ACCOUNTING MANAGER Office Visit [facility] Medical Group Multispecialty [address] [address] [address] [place] [address] Taylor Sanchez MD [address] [place] [address] documented as of this encounter Goals Goal Patient Goal Type Associated Problems Recent Progress Patient-Stated? Author Patient will return to prior living situation and remain independent in ADLs upon discharge from hospital Lifestyle No Pati Brown RN documented as of this encounter Visit Diagnoses Not on filedocumented in this encounter Additional Health Concerns Assessment Noted Time PHQ-9 Depression Total Score: 0 05/31/20 24 10:22 AM CDT documented as of this encounter Care Teams School Office Manager Relationship Specialty Start Date End Date Taylor Sanchez MD [address] [place] [address] PCP - General INTERNAL MEDICINE 06/18/22 documented as of this encounter
--- OUTSIDE RECORDS SUMMARY | 2025-09-28 21:08 | XMS_ITS | Encounter Summary ---
Author Organization [facility] Address [facility] [place] [address] Care Team Providers Care Spinneret Person Name Role Phone Taylor Sanchze MD Primary Care Provider Encounter Details Date Type Department Care Team (Late st Contact Info) Description 07/30/2023 [employer] Message Enc [facility] Medical Group Multispecialty Care - [place] [address] [address] [address] [place] [address] [place] [address] [place] [address] [address] [place] [address] Rash Social History Tobacco Use Types Packs/Day Years [...] Date Recorded Patient Health Questionnaire-2 Score 0 07/31/2023 Hunger Vital Sign Answer Date Recorded Within [...] place to sleep or slept in a residential (including now)? No 12/26/2022 Comments No Sex [...] 1:13 PM Tricia Roberson, RN Active * Are you blind or [...] 1:13 PM Tricia Roberson RN Active * Over the past 2 weeks, how often have you been bothered by any of the following problems? Question Answer Date of Assessment Author Status Little interest or pleasure in doing things Not at all 07/31/2023 4:30 PM Susana [place] RN Active Feeling down, depressed, or hopeless Not at all 07/31/2023 4:30 PM Susana [place] RN Activ e Patient Health Questionnaire-2 Score 0 07/31/2023 4:30 PM Susana [place] RN Active * Over the last 2 weeks, how often have you been bothered by any of the following problems? Question Answer Date of Assessment Author Status Feeling nervous, anxious, or on edge 1 08/01/2023 4:30 PM Susana [place] RN Activ e Not being able to stop or control worrying 0 08/01/2023 4:30 PM Susana [place] RN Acti ve Worrying too much about different things 0 08/01/2023 4:30 PM Susana [place] RN Acti ve Trouble relaxing 0 08/01/2023 4:30 PM Susana [place] RN Active Being so restless that it is hard to sit still 0 08/01/2023 4:30 PM Susana [place] RN Act amalia Becoming easily annoyed or irritable 1 08/01/2023 4:30 PM Susana [place] RN Activ e Feeling afraid as if something awful might happen 0 08/01/2023 4:30 PM CDT Maxx Doherty RN Active ALEKSANDAR-7 Total Score 2 08/01/2023 4:30 PM Susana [place] RN Active documented as of this encounter Mental Status * Because of a physical, mental, or emotional condition, do you have serious difficulty concentrating, remembering, or making decisions? Answer Entry Date Author Status No 12/26/2022 1:13 PM LICENSING REPRESENTATIVE Tricia Siddiqui RN Active documented in this encounter Plan of Treatment Upcoming Encounters Date Type Department Care Team (Late st Contact Info) Description 10/28/2025 8:00 AM LICENSING REPRESENTATIVE Office Visit [facility] Medical Group Multispecialty Care - [address] [address] [address] [place], [place] [phone] Taylor Sanchez MD [address] [facility] [address] [place] [address] documented as of this encounter Goals Goal Patient Goal Type Associated Problems Recent Progress Patient-Stated? Author Patient will return to prior living situation and remain independent in ADLs upon discharge from hospital Lifestyle No Pati Brown RN documented as of this encounter Visit Diagnoses Not on filedocumented in this encounter Care Teams Spinneret Person Relationship Specialty [place] [address] [place] [address] [address] [place] [address] PCP - General INTERNAL MEDICINE 06/18/22 documented as of this encounter
--- OUTSIDE RECORDS SUMMARY | 2025-09-28 21:08 | XMS_ITS | Encounter Summary ---
Author Organization [facility] Address [address] [place] [address] Care Team Providers Care Scout Leaser Name Role Phone Taylor Sanchez MD Primary Care Provider [phone] Encounter Details Date Type Department Care Team (Late st Contact Info) Description 01/19/2002 Outpatient Historical [facility] - [address] [facility] 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 [place] [phone] documented as of this encounter Visit Diagnoses Not on filedocumented in this encounter Care Teams Scout Leaser Relationship Specialty Start Date End Date Taylor Sanchez MD [address] [place] [address] PCP - General Internal Medicine 02/15/25 documented as of this encounter
--- OUTSIDE RECORDS SUMMARY | 2025-09-28 21:08 | XMS_ITS | Encounter Summary ---
Author Organization [facility] Address Count includes the [facility] [place] [address] Care Team Providers Care Associate Merchandiser Name Role Phone Taylor Sanchez MD Primary Care Provider [phone] Encounter Details Date Type Department Care Team (Late st Contact Info) Description 03/18/2024 [employer] Message Enc [facility] Medical Group Multispecialty Care - [place] [address] [place] [address] Marylou Herrera, SOLUTIONS SALES CONSULTANT [address] [place] [address] Make appointment Social History Tobacco Use Types Packs/Day Years [...] Date Recorded Patient Health Questionnaire-2 Score 0 09/29/2023 Hunger Vital Sign Answer Date Recorded Within [...] place to sleep or slept in a prison (including now)? No 12/26/2022 Comments No Sex [...] Assessment Author Status No 12/26/2022 1:13 PM TREASURY ASSISTANT Tricia Siddiqui RN Active * Do you have serious [...] Assessment Author Status No 12/26/2022 1:13 PM TREASURY ASSISTANT Tricia Siddiqui RN Active documented as of this encounter Mental Status * Because of a physical, mental, or emotional condition, do you have serious difficulty concentrating, remembering, or making decisions? Answer Entry Date Author Status No 12/26/2022 1:13 PM Tricia Roberson RN Active documented in this encounter Progress Notes * Tom Best - 03/18/2024 3:28 PM CDT Patient scheduled for lab redraw on 04/26/24 at 10:00 am. documented in this encounter Plan of Treatment Upcoming Encounters Date Type Department Care Team (Late st Contact Info) Description 10/28/2025 8:00 AM TREASURY ASSISTANT Office Visit [facility] Medical Group Multispecialty Care - [place] [address] [address] [address] [place] [address] Taylor Sanchez MD [address] [place] [address] documented as of this encounter Goals Goal Patient Goal Type Associated Problems Recent Progress Patient-Stated? Author Patient will return to prior living situation and remain independent in ADLs upon discharge from hospital Lifestyle Pati Luu RN documented as of this encounter Visit Diagnoses Not on filedocumented in this encounter Additional Health Concerns Assessment Noted Time PHQ-9 Depression Total Score: 1 09/29/20 23 1:25 PM TREASURY ASSISTANT documented as of this encounter Care Teams Associate Merchandiser Relationship Specialty Start Date End Date Taylor Sanchez MD [address] [address] PCP - General INTERNAL MEDICINE 06/18/22 documented as of this encounter
--- OUTSIDE RECORDS SUMMARY | 2025-09-28 21:08 | XMS_ITS | Encounter Summary ---
Author Organization [facility] Address [facility] [place] [address] Care Team Providers Care Manager Cost Name Role Phone Taylor Sanchez MD Primary Care Provider [phone] Encounter Details Date Type Department Care Team (Late st Contact Info) Description 05/26/2024 [employer] Message Enc [facility] Medical Group Multispecialty Care - [address] [place] [address] [employer] Provider ANNUAL PHYSICAL Social History Tobacco Use Types Packs/Day Years [...] place to sleep or slept in a penitentiary (including now)? No 12/26/2022 Comments No Sex [...] Assessment Author Status No 12/26/2022 1:13 PM ASSEMBLY TECHNICIAN Tricia Siddiqui RN Active * Do you have difficulty dressing or bathing? Answer Date of Assessment Author Status No 12/26/2022 1:13 PM ASSEMBLY TECHNICIAN Tricia Siddiqui RN Active * Because of a physical, mental, or emotional condition, do you have difficulty doing errands alone such as visiting a doctor's office or shopping? Answer Date of Assessment Author Status No 12/26/2022 1:13 PM ASSEMBLY TECHNICIAN Tricia Siddiqui RN Active documented as of this encounter Mental Status * Because of a physical, mental, or emotional condition, do you have serious difficulty concentrating, remembering, or making decisions? Answer Entry Date Author Status No 12/26/2022 1:13 PM ASSEMBLY TECHNICIAN Tricia Siddiqui RN Active documented in this encounter Plan of Treatment Upcoming Encounters Date Type Department Care Team (Late st Contact Info) Description 10/28/2025 8:00 AM ASSEMBLY TECHNICIAN Office Visit [facility] Medical Group Multispecialty Care - [place] [address] [address] [address] [place] [address] Taylor Sanchez MD [address] [place] [address] documented as of this encounter Goals Goal [...] Total Score: 1 09/29/20 23 1:25 PM ASSEMBLY TECHNICIAN documented as of this encounter Care Teams Manager Cost Relationship Specialty Start Date End Date Taylor Sanchez MD [address] [place] [address] PCP - General INTERNAL MEDICINE 06/18/22 documented as of this encounter
--- OUTSIDE RECORDS SUMMARY | 2025-09-28 21:08 | XMS_ITS | Clinical Summary ---
Author Organization [facility] Address [address] [place] [address] [place] [address] Phone Care Team Providers Care Claims Attorney Name Role Phone Jacek Linn MD Primary Care Provider [phone] Allergies Active Allergy Reactions Criticality Noted Date Comments Penicillins Hives,Rash Medium 1994 [place] Tar Hives Medium 09/28/2022 Prednisolone Other (see Comments) 07/15/2022 [place] Medications atorvastatin (LIPITOR) 10 MG Tablet 3 Active clopidogrel (PLAVIX) 75 MG Tablet 3 Active aspirin 81 MG Chewable Tablet Take 81 mg by mouth. 3 Active FeroSul 325 (65 Fe) MG Tablet TAKE 1 TABLET BY MOUTH ONCE DAILY WITH BREAKFAST 3 Active sertraline (ZOLOFT) 50 MG Tablet 3 Active Topiramate 50 MG Tablet Take 50 mg by mouth. 3 Active Rimegepant Sulfate 75 MG TABLET DISPERSIBLE Take 75 mg by mouth. 3 Active Family History Relation Name Status Comments Child 1 Alive Child 2 Alive Child 3 Alive Child 4 Alive Father Alive Mother Alive Sister 1 Alive Sister 2 Alive Social History Tobacco Use Types Packs/Day Years Used Date Smoking Tobacco: Never Smokeless Tobacco: Never Tobacco Cessation:Counseling Given: Not Answered Alcohol Use Standard Drinks/Week Comments Yes 2 (1 standard drink = 0.6 oz pur e alcohol) Comments Unknown Sex and Gender Information Value Date Recorded Sex Assigned at Not on file Legal Sex Female 3:21 PM CDT Gender Identity Not on file Sexual Orientation Not on file Last Filed Vital Signs Vital Sign Reading Time Taken Comments Blood Pressure 116/64 02/26/2023 3:00 PM CDT Pulse 80 02/26/2023 3:00 PM CDT Temperature 36.8 C (98.2 F) 02/26/2023 3:00 PM CDT Respiratory Rate 18 02/26/2023 3:00 PM CDT Oxygen Saturation 98% 02/26/2023 3:00 PM CDT Inhaled Oxygen Concentration - - Weight 66.2 kg (145 lb 14.4 oz) 02/26/2023 3:00 PM CDT Height 175.3 cm (5' 9) 02/26/2023 3:00 PM CDT Body Mass Index 21.55 02/26/2023 3:00 PM CDT Plan of Treatment Health Maintenance Due Date Last Done Comments Hepatitis C Virus (HCV) Screening 1994 Varicella Immunization (1 of 2 - 13+ 2-dose series) 2007 Hepatitis B Immunization (1 of 3 - 19+ 3-dose series) 2013 Pap Smear 2015 Human Papillomavirus (HPV) Immunization (1 - 3-dose SCDM series) 2021 Cervical Cancer Screening (CCS) 2024 HPV/Cotest 2024 Influenza Immunization (#1) 2025 SARS-COV-2 Immunization ( season) 2025 Respiratory Syncytial Virus (RSV) Immunization (Adult) (1 - 1-dose 75+ series) 2069 DTaP/Tdap/Td Immunization Discontinued 11/11/2022 TdaP Immunization Completed 11/11/2022 Meningococcal Immunization (ACWY) Aged Out No longer eligible based on patient's age to complete this topic Pneumococcal Immunization Combined Aged Out No longer eligible based on patient's age to complete this topic Rotavirus Immunization Aged Out No lo nger eligible based on patient's age to complete this topic Insurance [facility] [place] [address] Care Teams Claims Attorney Relationship Specialty Start Date End Date Jacek Linn MD [address] [facility] [address] [place] [address] PCP - General Internal Medicine 01/28/23
--- OUTSIDE RECORDS SUMMARY | 2025-09-28 21:08 | XMS_ITS | Encounter Summary ---
Author Organization [facility] Address [address] [place] [address] Care Team Providers Care Dashboard Developer Name Role Phone Taylor Sanchez MD Primary Care Provider [phone] Encounter Details Date Type Department Care Team (Late st Contact Info) Description 04/04/1999 Outpatient Historical [facility] Pediatrics [address] [facility] [facility] [address] [address] Kurtis Soto MD NO ADDRESS ON FILE Social History Tobacco Use Types Packs/Day Years Used Date Smoking Tobacco: Never Assessed Comments Unknown Sex and Gender Information Value Date Recorded Sex Assigned at Not on file Legal Sex Female 3:30 AM SUPERVISOR ALUMINUM FABRICATION Gender Identity Not on file Sexual Orientation Not on file documented as of this encounter Plan of Treatment Upcoming Encounters Date Type Department Care Team (Late st Contact Info) Description 04/25/2026 2:15 PM CDT Office Visit [facility] Heart and Vascular - [place] [address] [place] [phone] Cesar Banda MD [address] [place] [address] documented as of this encounter Visit Diagnoses Not on filedocumented in this encounter Care Teams Dashboard Developer Relationship Specialty Start Date End Date Taylor Sanchez MD [address] [place] [address] PCP - General Internal Medicine 02/15/25 documented as of this encounter
--- OUTSIDE RECORDS SUMMARY | 2025-09-28 21:08 | XMS_ITS | Encounter Summary ---
Author Organization [facility] Address [address] [place] [address] Care Team Providers Care Healthcare Sales Representative Name Role Phone Taylor Sanchez MD Primary Care Provider [phone] Encounter Details Date Type Department Care Team (Late st Contact Info) Description 06/23/2002 Outpatient Historical [facility] Pediatrics - [address] [facility] [address] [facility] [address] [address] Kurtis Soto MD NO ADDRESS ON FILE Social History Tobacco Use Types Packs/Day Years Used Date Smoking Tobacco: Never Assessed Comments Unknown Sex and Gender Information Value Date Recorded Sex Assigned at Not on file Legal Sex Female 3:30 AM RAIL GRINDER Gender Identity Not on file Sexual Orientation Not on file documented as of this encounter Plan of Treatment Upcoming Encounters Date Type Department Care Team (Late st Contact Info) Description 04/25/2026 2:15 PM CDT Office Visit [facility] Heart and Vascular - [place] [address] [place] [address] Cesar Banda MD [address] [place] [address] documented as of this encounter Visit Diagnoses Not on filedocumented in this encounter Care Teams Healthcare Sales Representative Relationship Specialty Start Date End Date Taylor Sanchez MD [address] [place] [address] PCP - General Internal Medicine 02/15/25 documented as of this encounter
--- OUTSIDE RECORDS SUMMARY | 2025-09-28 21:08 | XMS_ITS | Clinical Summary ---
Author Organization [facility] Address [address] [place] [address] Care Team Providers Care Protein Specialist Name Role Phone Taylor Sanchez MD Primary Care Provider [phone] Diego Bryant MD Unavailable Kurt Herndon MD Unavailable [phone] Allergies Active Allergy Reactions Criticality Noted Date Comments Amoxicillin Hives Medium 11/16/2022 Tolerates cephalosporins Nickel Itching,Rash Medium 07/22/2023 Hydrocodone-Acetamino phen Hives Medium 04/05/2024 Penicillins Hives Medium 11/16/2022 [place] Tar Hives,Urticaria Medium 09/28/2022 Prednisolone Other (See comments) Low 07/15/2022 [place] Trace Metals Other (See comments) Low 07/22/2023 Gold, Nickel, and Titatium Medications atorvastatin (LIPITOR) 10 mg tablet Take 1 tablet (10 mg total) by mouth daily 12/27/2022 Active ferrous sulfate 325 mg (65 mg of elemental iron) tablet Take 1 tablet (325 mg total) by mouth daily 11/11/2022 Active ondansetron (ZOFRAN) 4 mg tablet Take 1 tablet (4 mg total) by mouth every 6 (six) hours as needed Active rimegepant (NURTEC ODT) tablet,disintegr ating Take 1 tablet (75 mg total) by mouth daily as needed 02/12/2023 Active sertraline (ZOLOFT) 50 mg tablet 11/14/2022 Active topiramate (TOPAMAX) 50 mg tablet Take 1 tablet (50 mg total) by mouth 2 (two) times a day 02/12/[address] (PROTONIX) 40 mg EC tablet Take 1 tablet (40 mg total) by mouth daily 90 tablet 08/29/2023 Active aspirin 81 mg enteric coated tablet Take 1 tablet (81 mg total) by mouth daily 30 tablet 11 12/02/2023 Active Active Problems Problem Noted Date Diagnosed Date Pelvic and perineal pain 06/18/2024 Assessment & Plan (06/18/2024 9:38 AM CDT): As exam is unremarkable today she would like to wait on pelvic ultrasound for now due to starting a new job. If pain returns she will call us and we can get that scheduled. Discussed ovarian cysts at length and warning signs. Nickel allergy, current reaction 02/20/2024 Contact dermatitis due to metal 08/26/2023 Anxiety 08/26/2023 Anemia 08/26/2023 Surgical History Surgery Date Site/Laterality Comments PATENT FORAMEN OVALE CLOSURE 10/20/2022 - 10/19/2023 THORACOTOMY 03/05/2024 Right Mini-Thoracotomy for Removal of Previous Occluder Device, Patch Repair of ASD Medical History Medical History Date Comments Cryptogenic stroke (HCC) Chest pain Family History Medical History Relation Name Comments Breast cancer Maternal Grandmother BRCA p ositive Colon cancer Maternal Grandmother Cancer Paternal Grandmother Relation Name Status Comments Maternal Grandmother Paternal Grandmother Social History Tobacco Use Types Packs/Day Years Used Date Smoking Tobacco: Never Passive Smoke Exposure: Past Smokeless Tobacco: Never Tobacco Cessation:Counseling Given: Not Answered [facility] Utilities Answer Date Recorded In the past 12 months has [facility] [employer], oil, or water [employer] threatened to shut off services in your home? No 03/08/2024 Humiliation, Afraid, Rape, and Kick questionnair e Answer Date Recorded Within the last year, have y ou been afraid of your partner or ex-partner? No 06/18/2024 Within the last year, have y ou been humiliated or emotionally abused in other ways by your partner or ex-partner? No Within the last year, have y ou been kicked, hit, slapped, or otherwise physically hurt by your partner or ex-partner? No 06/18/2024 Within the last year, have y ou been raped or forced to have any kind of sexual activity by your partner or ex-partner? No 06/18/2024 Social Connection and Isolation Panel Answer Date Recorded In a typical week, how many times do you talk on the phone with family, friends, or neighbors? More than three times a week 03/08/2024 How often do you get togethe r with friends or relatives? More than three times a week 03/08/2024 How often do you attend chur ch or tenriism services? 1 to 4 times per year 03/08/2024 Do you belong to any clubs o r organizations such as pentecostal groups, unions, fraternal or athletic groups, or school groups? Yes 03/08/2024 How often do you attend meet ings of the clubs or organizations you belong to? 1 to 4 times per year 03/08/2024 Are you , , di vorced, , never , or living with a partner? 03/08/2024 AUDIT-C Answer Date Recorded Q1: How often do you have a drink containing alc ohol? 2-4 times a month 06/18/2024 Q2: How many drinks containi ng alcohol do you have on a typical day when you are drinking? 1 or 2 06/18/2024 Q3: How often do you have si x or more drinks on one occasion? Less than monthly 06/18/2024 Overall Financial Resource Strain (CARDIA) Answe r Date Recorded How hard is it for you to pa y for the very basics like food, housing, medical care, and heating? Not very hard 03/08/2024 Hunger Vital Sign Answer Date Recorded Within the past 12 months, y ou worried that your food would run out before you got the money to buy more. Never true 03/08/20 Within the past 12 months, t he food you bought just didn't last and you didn't have money to get more. Never true 03/08/2024 PRAPARE - Transportation Answer Date Re corded In the past 12 months, has l ack of transportation kept you from medical appointments or from getting medications? No 02/18 In the past 12 months, has l ack of transportation kept you from meetings, work, or from getting things needed for daily living? No 03/08/2024 Housing Stability Vital Sign Answer Sarath e Recorded In the last 12 months, was t here a time when you were not able to pay the mortgage or rent on time? No 03/08/2024 In the past 12 months, how m any times have you moved where you were living? 1 03/08/2024 At any time in the past 12 m [facility], were you homeless or living in a group home (including now)? No 03/08/2024 Personal Safety Answer Date Recorded Have you ever been in or are you currently in a harmful physical or emotional relationship or is someone making you feel afraid or unsafe? Denies 03/05/2024 Comments No Sex and Gender Information Value Date Recorded Sex Assigned at Not on file Legal Sex Female 10:39 PM COORDINATING PRODUCER Gender Identity Not on file Sexual Orientation Not on file Obstetrics History Para Term AB IAB SAB Ectopic Multiple Livin g Live Births 4 4 4 4 4 Date Outcome GA Total Labor Labor/2nd/3rd Weight Sex Type Anes PTL Kylah A1 A5 Name Clin 06/14 Term 40w 0d M Living 06/10 Term 40w 0d F Living 02/25 Term 40w 0d F Living 08/07 Term 40w 0d M Vaginal Living Last Filed Vital Signs Vital Sign Reading Time Taken Comments Blood Pressure 108/64 06/18/2024 9:12 AM CDT Pulse 68 05/10/2024 10:33 AM CDT Temperature 37 C (98.6 F) 03/09/2024 8:16 AM CDT Respiratory Rate 14 05/10/2024 10:33 AM CDT Oxygen Saturation 99% 05/10/2024 10:33 AM CDT Inhaled Oxygen Concentration - - Weight 71.2 kg (157 lb) 06/18/2024 9:12 AM CDT Height 175.3 cm (5' 9) 06/18/2024 9:12 AM CDT Body Mass Index 23.18 06/18/2024 9:12 AM CDT Plan of Treatment Health Maintenance Due Date Last Done Comments Cervical Cancer Screening 1994 Depression Screening 1994 Hepatitis C Screening 1994 Varicella Vaccines (1 of 2 - 13+ 2-dose series) 2007 Regular Well Visit/Exam 18-64 2012 HPV Vaccines (1 - 3-dose SCD M series) 2021 Influenza Vaccine (#1) 2025 08/31/2024 DTaP/Tdap/Td Vaccine (2 - Td or Tdap) 11/11/2032 11/11/2022 Hepatitis B Screening Completed 06/02/2024 Pneumococcal vaccine <65 Aged Out No longer eligible based on patient's age to complete this topic Medical Devices Implanted Type Area Director Advertising Device Identifier Shelf Expiration Date Model / Serial / Lot [employer] Graft Biological Cardiovascular Photofix 6x8cm Acellular Dermis Pfp 6x8 - [id number] Implanted:Qty: 1 on 03/05/2024 by Kurt Herndon MD at [facility] Graft N/A: [employer] 11/15/2025 PFP 6X8 / / [id number] [employer] 18f Manta Vascular Closure Device [id number] - [id number] Implanted:Qty: 1 on 03/05/2024 by Kurt Herndon MD at [facility] Right: Groin [employer] 04/08/2025 [id number] / / [id number] Insurance [facility] [address] [place] [id number] [facility] [address] [place] [id number] [facility] PL[facility] Advance Directives For more information, please contact: [phone] * Full Code (Latest Code Status on File) Date Activated Date Inactivated Comments 03/05/2024 11:36 AM 03/09/2024 4:42 PM Care Teams Protein Specialist Relationship Specialty Start Date End Date Taylor Sanchez MD [address] [place] [address] PCP - General Internal Medicine 11/16/22 Diego Bryant MD [address] [place] [address] Referring Physician Cardiology 01/28/24 Kurt Herndon MD [address] [facility] [address] [place] [address] Consulting Physician Cardiothoracic Surgery 01/28/24
--- OUTSIDE RECORDS SUMMARY | 2025-09-28 21:08 | XMS_ITS | Encounter Summary ---
Author Organization [facility] Address [address] [place] [address] Care Team Providers Care Outsole Leveler Name Role Phone Taylor Sanchez MD Primary Care Provider [phone] Encounter Details Date Type Department Care Team (Late st Contact Info) Description 03/26/2002 Outpatient Historical [facility] Pediatrics - [address] [facility] [address] [facility] [address] [address] Kurtis Soto MD NO ADDRESS ON FILE Social History Tobacco Use Types Packs/Day Years Used Date Smoking Tobacco: Never Assessed Comments Unknown Sex and Gender Information Value Date Recorded Sex Assigned at Not on file Legal Sex Female 3:30 AM 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 [place] [phone] documented as of this encounter Visit Diagnoses Not on filedocumented in this encounter Care Teams Outsole Leveler Relationship Specialty Start Date End Date Taylor Sanchez MD [address] [place] [address] PCP - General Internal Medicine 02/15/25 documented as of this encounter
--- OUTSIDE RECORDS SUMMARY | 2025-09-28 21:08 | XMS_ITS | Encounter Summary ---
Author Organization [facility] Address [address] [place] [address] Care Team Providers Care Scanning Tech Name Role Phone Taylor Sanchez MD Primary Care Provider [phone] Encounter Details Date Type Department Care Team (Late st Contact Info) Description 03/26/2002 Outpatient Historical [facility] Pediatrics - [address] [facility] [address] [facility] [address] [address] Kurtis Soto MD NO ADDRESS ON FILE Social History Tobacco Use Types Packs/Day Years Used Date Smoking Tobacco: Never Assessed Comments Unknown Sex and Gender Information Value Date Recorded Sex Assigned at Not on file Legal Sex Female 3:30 AM MANAGER MANAGING Gender Identity Not on file Sexual Orientation Not on file documented as of this encounter Plan of Treatment Upcoming Encounters Date Type Department Care Team (Late st Contact Info) Description 04/25/2026 2:15 PM CDT Office Visit [facility] Heart and Vascular - [address] [place] [address] Cesar Banda MD [address] [place] [address] documented as of this encounter Visit Diagnoses Not on filedocumented in this encounter Care Teams Scanning Tech Relationship Specialty Start Date End Date Taylor Sanchez MD [address] [place] [address] PCP - General Internal Medicine 02/15/25 documented as of this encounter
--- OUTSIDE RECORDS SUMMARY | 2025-09-28 21:08 | XMS_ITS | Encounter Summary ---
Author Organization [facility] - [facility] Address [id number] [place] [address] Care Team Providers Care Research Epidemiologist Name Role Phone Taylor Sanchez MD Primary Care Provider [phone] Encounter Details Date Type Department Care Team (Late Contact Info) Description 07/19/2022 Trubates Message Enc [facility] Medical Group Multispecialty Care - [address] [place], [place] [phone] [facility] Provider Tdap Social History Tobacco Use Types Packs/Day Years Used Date Smoking Tobacco: Never Smokeless Tobacco: Never Comments:counseled by Dr Dahlia liang Alcohol Use Standard Drinks/Week Comments Not Currently 0 (1 standard drink = 0.6 oz pur e alcohol) PHQ-2 Answer Date Recorded PHQ-2 Score - If the patient scores above 3, please move on to questions 3-9 0 07/15/2022 Comments No Sex and Gender Information Value Date Recorded Sex Assigned at Female 02/22/2025 3:57 PM CDT Legal Sex Female 3:22 PM CDT Gender Identity Female 02/22/2025 3:57 PM CDT Sexual Orientation Straight 02/22/2025 3: 57 PM CDT COVID-19 Exposure Response Date Recorded In the last 10 days, have yo u been in contact with someone who was confirmed or suspected to have Coronavirus/COVID-19? No / Unsure 07/15/2022 11:05 AM CDT documented as of this encounter Plan of Treatment Upcoming Encounters Date Type Department Care Team (Late Contact Info) Description 10/28/2025 8:00 AM INSULATING MACHINE OPERATOR Office Visit [facility] Medical Group Multispecialty Care - [place] [address] [address] [place] [address] Taylor Sanchez MD [address] [address] documented as of this encounter Visit Diagnoses Not on filedocumented in this encounter Care Teams Research Epidemiologist Relationship Specialty Start Date End Date Taylor Sanchez MD [facility] [address] PCP - General INTERNAL MEDICINE 06/18/22 documented as of this encounter
--- OUTSIDE RECORDS SUMMARY | 2025-09-28 21:08 | XMS_ITS | Encounter Summary ---
Author Organization [facility] Address [address] [place] [address] Care Team Providers Care Business Taxes Specialist Name Role Phone Taylor Sanchez MD Primary Care Provider [phone] Encounter Details Date Type Department Care Team (Late st Contact Info) Description 09/17/2001 Outpatient Historical [facility] Pediatrics [address] [address] Omar Martínez MD NO ADDRESS ON FILE Social History Tobacco Use Types Packs/Day Years Used Date Smoking Tobacco: Never Assessed Comments Unknown Sex and Gender Information Value Date Recorded Sex Assigned at Not on file Legal Sex Female 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 [place] [address] documented as of this encounter Visit Diagnoses Not on filedocumented in this encounter Care Teams Business Taxes Specialist Relationship Specialty Start Date End Date Taylor Sanchez MD [address] [place] [address] PCP - General Internal Medicine 02/15/25 documented as of this encounter
--- OUTSIDE RECORDS SUMMARY | 2025-09-28 21:08 | XMS_ITS | Clinical Summary ---
Author Organization [facility] Address [facility] [place] [address] Care Team Providers Care Briquette Machine Operator Helper Name Role Phone Taylor Sanchez MD Primary Care Provider [phone] Allergies Active Allergy Reactions Criticality Noted Date Comments Amoxicillin Hives 06/18/2022 Hydrocodone-Acetaminoph en Hives Medium 04/05/2024 Metals Other (see comment) 07/22/2023 Gold, Nickel, and Titatium Nickel Rash,Itching Low 07/22/2023 Penicillins Hives 1994 [place] Tar Hives 09/28/2022 Prednisolone Other (see comment) 07/15/2022 [place] Medications cetirizine (ZYRTEC) 10 MG tabletIndications: Dermatitis Take 1 tablet (10 mg total) by mouth daily. 30 tablet 08/01/20 23 Active aspirin 81 MG chewable tabletIndications: Cerebrovascular accident (CVA), unspecified mechanism (CMS/HCC HHS/HCC) Chew 1 tablet (81 mg total) by mouth daily. 90 tablet 4 09/29/20 23 Active sertraline (ZOLOFT) 50 MG tabletIndications: ALEKSANDAR (generalized anxiety disorder) Take 1 tablet (50 mg total) by mouth daily. 90 tablet 1 10/05/20 24 Active ferrous sulfate, 65 mg elemental, 325 (65 FE) MG tabletIndications: Iron deficiency anemia, unspecified iron deficiency anemia type Take 1 tablet (325 mg total) by mouth daily with breakfast. 180 tablet 1 10/05/20 24 Active atorvastatin (LIPITOR) 10 MG tabletIndications: Cerebrovascular accident (CVA), unspecified mechanism (CMS/HCC HHS/HCC) Take 1 tablet (10 mg total) by mouth nightly at bedtime. 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 Max of 1 tablet (75 mg) in 24 hours. 16 tablet 5 02/23/20 25 Active Active Problems Problem Noted Date Diagnosed Date Other iron deficiency anemia 03/18/2024 Thrombocytosis, unspecified 03/18/2024 S/P atrial septal defect closure 03/17/2024 TIA (transient ischemic attack) 12/26/2022 Acute cerebrovascular accide nt (CVA) due to thrombosis of right middle cerebral artery 12/26/2022 Assessment & Plan (03/14/2023 2:53 PM CDT): She had a cryptogenic stroke and we will plan for PFO closure. Continue Plavix and statin therapy. Anxiety Resolved Problems Problem Noted Date Diagnosed Date Resolved Date School physical exam 05/31/2024 024 PFO (patent foramen ovale) 03/14/2023 0 03/17/2024 Assessment & Plan (03/15/2024 6:57 AM CDT): I reviewed her NIKOS with her and I do not see any issues with her PFO closure device. I recommended that she see another health and wellness coach for second opinion. I also told her that I would contact her health and wellness coach. Addendum: I contacted her health and wellness coach a few days after her appointment. Her health and wellness coach did more research and recommended a steroid burst for a month, which we prescribed for her. There has been some anecdotal experience to help with nickel allergy patients who have had PFO closure. I briefly discussed catheter removal versus surgical removal of the PFO closure device. Assessment & Plan (03/14/2023 2:53 PM CDT): I did discuss the procedure of patent foramen ovale closure with the patient. I discussed risks and benefits of the procedure that include but are not limited to: Bleeding, infection, cerebrovascular accident and device embolization. I quoted a risk of 1% with device embolization. I did explain that if there was device embolization, there could be a need for cardiac surgery. She will require dual antiplatelet therapy for 6 months post PFO closure. Immunizations Immunization Administration Dates Next Due Hepatitis B (Recombivax Hb 10 Mcg) 06/02/2024 Influenza Adult (Generic) 08/31/2024 Tdap (Adacel) 11/11/2022 Family History Medical History Relation Comments Alcohol Abuse Father Hyperlipidemia Father AAA Maternal Grandfather Coronary artery disease Maternal Grandfather Heart Attack Maternal Grandfather Stent Cardiac Maternal Grandfather Breast Cancer Maternal Grandmother Cancer Maternal Grandmother Colon Cancer Maternal Grandmother No Known Problems Paternal Grandfather Hyperlipidemia Paternal Grandmother Relation Status Comments Father Alive Maternal Grandfather Alive Maternal Grandmother Alive Mother Alive Paternal Grandfather Alive Paternal Grandmother Alive Sister 1 Alive Sister 2 Alive Social History Tobacco Use Types Packs/Day Years Used Date Smoking Tobacco: Never Smokeless Tobacco: Never Tobacco Cessation:Counseling Given: Yes Comments:Counseled by Dr. Sanchez. Alcohol Use Standard Drinks/Week Comments Yes 0 [...] Date Recorded Patient Health Questionnaire-2 Score 0 10/05/2024 Hunger Vital Sign Answer Date Recorded Within [...] place to sleep or slept in a alf (including now)? No 12/26/2022 Comments No Sex and Gender Information Value Date Recorded Sex Assigned at Female 02/22/2025 3:57 PM CDT Legal Sex Female 3:22 PM CDT Gender Identity Female 02/22/2025 3:57 PM CDT Sexual Orientation Straight 02/22/2025 3: 57 PM CDT Occupation Industry Job Start Date Job End Date Not on file Not on file Not on file Not on file Last Filed Vital Signs Vital Sign Reading Time Taken Comments Blood Pressure 104/64 02/22/2025 4:08 PM CDT Pulse 67 02/22/2025 4:08 PM CDT Temperature 36.8 C (98.3 F) 02/22/2025 4:08 PM CDT Respiratory Rate 18 02/22/2025 4:08 PM CDT Oxygen Saturation 99% 02/22/2025 4:08 PM CDT Inhaled Oxygen Concentration - - Weight 74.9 kg (165 lb 3.2 oz) 02/22/2025 4:08 P M CDT Height 175.3 cm (5' 9) 02/22/2025 4:08 PM CDT Body Mass Index 24.4 02/22/2025 4:08 PM CDT Plan of Treatment Upcoming Encounters Date Type Department Care Team (Late st Contact Info) Description 10/28/2025 8:00 AM MANAGER LEGAL Office Visit [facility] Multispecialty Care - [place] [address] [address] [address] [place] [address] Taylor Sanchez MD [address] [facility] [address] [place] [address] Health Maintenance Due Date Last Done Comments Cervical Cancer Screening Pa p Smear (Age 30 to 64) Every 3 Years 1994 HPV Vaccines (1 - 3-dose SCD M series) 2021 Hepatitis B Vaccines (2 of 2 - CpG 2-dose series) 06/30/2024 06/02/2024 Cervical Cancer Screening Pa p with HPV Testing (Age 30 to 64) Every 5 Years 2024 04/16/2022 Cervical Cancer Screening wi th HPV 2024 PHQ-2 (Physician [place]) 10/20/2024 10/05/2024 COVID-19 Vaccine (1 - 2024-2 6 season) 2025 Influenza Adult (#1) 2025 08/31/2024, 07/26/2024 Annual Physical 10/05/2025 10/05/2024, 09/29/2023, 06/18/2022 DTaP, Tdap and Td Vaccines ( 3 - Td or Tdap) 11/11/2032 11/11/2022, 10/20/2009 Hepatitis C Completed 06/18/2022 Hepatitis A Vaccines Aged Out No long er eligible based on patient's age to complete this topic Meningococcal B Vaccine Aged Out No l onger eligible based on patient's age to complete this topic Meningococcal Vaccine Aged Out No aliyah juanjose eligible based on patient's age to complete this topic Pneumococcal Vaccine: Pediatrics (0 to 5 Years) and At-Risk Patients (6 to 49 Years) Aged Out No longer eligible b ased on patient's age to complete this topic RSV Immunizations Under 20 Months Aged Out No longer eligible b ased on patient's age to complete this topic Goals Goal Patient Goal Type Associated Problems Recent Progress Patient-Stated? Author Patient will return to prior living situation and remain independent in ADLs upon discharge from hospital Lifestyle Pati Luu RN Medical Devices Implanted Type Area Nib Finisher Device Identifier Shelf Expiration Date Model / Serial / Lot Shahana Pfo Closure Device-04/08/20 23 Implanted:03/21 by Boyd Constantino MD (Quantity not on file) Closure Device [id number] 06/19/2025 [id number] / / [id number] Procedures Procedure Name Priority Date/Time Associated Diagnosis Comments HEPATITIS C ANTIBODY Routine 06/18/2022 12:29 PM CDT Annual physical exam Encounter for medical examination to establish care General medical exam Encounter for hepatitis C screening test for low risk patient OUTSIDE CYTOPATH CERV/VAG INTERPRET (PAP) 04/16/2022 from Last 3 Months or Most Recently Relevant to Health Maintenance Results * HEPATITIS C ANTIBODY (06/18/2022 12:29 PM CDT) HEPATITIS C AB NON-REACTI VE NON-REACT STAN 06/19/2022 7:29 PM CDT [facility] Comment: ANTIBODIES TO HCV NOT DETECTED. DOES NOT EXCLUDE THE POSSIBILITY OF EXPOSURE TO HCV. 06/18/2022 12:2 9 PM CDT us Taylor Sanchez MD LABORATORY Final Result [facility] [address] [place] [address], [id number] * PAP SMEAR WITH HPV (04/16/2022) 04/16/2022 Narrative 04/16/2022 Ordered by an unspecified provider. us Documents Scanned SCANNING Final Result from Last 3 Months or Most Recently Relevant to Health Maintenance Insurance [facility] Advance Directives * Full Code (Latest Code Status on File) Date Activated Date Inactivated Comments 07/22/2023 10:13 AM 07/22/2023 2:05 PM * Full Code Date Activated Date Inactivated Comments 04/08/2023 1:00 PM 04/08/2023 5:48 PM * Full Code Date Activated Date Inactivated Comments 03/12/2023 1:57 PM 03/12/2023 4:44 PM * Full Code Date Activated Date Inactivated Comments 12/26/2022 10:30 AM 12/26/2022 8:45 PM Care Teams Briquette Machine Operator Helper Relationship Specialty Start Date End Date Taylor Sanchez MD [address] [address] PCP - General INTERNAL MEDICINE 06/18/22
--- OUTSIDE RECORDS SUMMARY | 2025-09-28 21:08 | XMS_ITS | Encounter Summary ---
Author Organization [facility] Address [facility] [place] [address] Care Team Providers Care Tire Stripper Name Role Phone Taylor Sanchez MD Primary Care Provider [phone] Encounter Details Date Type Department Care Team (Late st Contact Info) Description 02/17/2025 Yurbudst Message Enc [facility] Multispecialty Care [place] [address] [address] [address] [place] [address] [place] [address] [place] [address] [address] [place] [address] Migraines Social History Tobacco Use Types Packs/Day Years Used Date Smoking Tobacco: Never Smokeless Tobacco: Never Comments:Counseled by Dr. Brook munoz. Alcohol Use Standard Drinks/Week Comments Yes 0 [...] st Contact Info) Description 10/28/2025 8:00 AM BANK CREDIT CARD COLLECTION CLERK Office Visit [facility] Multispecialty Care - [address] [address] [address] [place], [place] [id number] Taylor Sanchez MD [address] [place] [address] documented as of this encounter Goals Goal [...] documented as of this encounter Care Teams Tire Stripper Relationship Specialty Start Date End Date Taylor Sanchez MD [address] [place] [address] PCP - General INTERNAL MEDICINE 06/18/22 documented as of this encounter
--- OUTSIDE RECORDS SUMMARY | 2025-09-28 21:08 | XMS_ITS | Encounter Summary ---
Author Organization [facility] Address [address] [place] [address] Care Team Providers Care Social Services Analyst Name Role Phone Taylor Sanchez MD Primary Care Provider [phone] Encounter Details Date Type Department Care Team (Late st Contact Info) Description 10/30/1999 Outpatient Historical [facility] Pediatrics [address] [facility] [address] [facility] [address] [phone] Kurtis Soto MD NO ADDRESS ON FILE Social History Tobacco Use Types Packs/Day Years Used Date Smoking Tobacco: Never Assessed Comments Unknown Sex and Gender Information Value Date Recorded Sex Assigned at Not on file 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 [place] [address] documented as of this encounter Visit Diagnoses Not on filedocumented in this encounter Care Teams Social Services Analyst Relationship Specialty Start Date End Date Taylor Sanchez MD [address] [place] [address] PCP - General Internal Medicine 02/15/25 documented as of this encounter
--- OUTSIDE RECORDS SUMMARY | 2025-09-28 21:08 | XMS_ITS | Encounter Summary ---
Author Organization [facility] Address [address] [place] [address] Care Team Providers Care Intensive Care Anaesthetist Name Role Phone Taylor Sanchez MD Primary Care Provider [phone] Encounter Details Date Type Department Care Team (Late st Contact Info) Description 11/16/1999 Outpatient Historical [facility] Pediatrics [address] 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 [place] [address] documented as of this encounter Visit Diagnoses Not on filedocumented in this encounter Care Teams Intensive Care Anaesthetist Relationship Specialty Start Date End Date Taylor Sanchez MD [address] [place] [address] PCP - General Internal Medicine 02/15/25 documented as of this encounter
--- OUTSIDE RECORDS SUMMARY | 2025-09-28 21:08 | XMS_ITS | Encounter Summary ---
Author Organization [facility] Address [address] [place] [address] Care Team Providers Care Operator/Assistant Foreman Name Role Phone Taylor Sanchez MD Primary Care Provider [phone] Encounter Details Date Type Department Care Team (Late st Contact Info) Description 01/31/1999 Outpatient Historical [facility] Pediatrics [address] [facility] [address] [facility] [address] [phone] Kurtis Soto MD NO ADDRESS ON FILE Social History Tobacco Use Types Packs/Day Years Used Date Smoking Tobacco: Never Assessed Comments Unknown Sex and Gender Information Value Date Recorded Sex Assigned at Not on file 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 [place] [phone] documented as of this encounter Visit Diagnoses Not on filedocumented in this encounter Care Teams Operator/Assistant Foreman Relationship Specialty Start Date End Date Taylor Sanchez MD [address] [place] [address] PCP - General Internal Medicine 02/15/25 documented as of this encounter
--- OUTSIDE RECORDS SUMMARY | 2025-09-28 21:08 | XMS_ITS | Encounter Summary ---
Author Organization [facility] Address [facility] [place] [address] Care Team Providers Care Director Of Exhibits Name Role Phone Taylor Sanchez MD Primary Care Provider [phone] Encounter Details Date Type Department Care Team (Late st Contact Info) Description 12/11/2023 Chelailet Message Enc [facility] Multispecialty Care [address] [address] [address] [place] [address] [place] [address] [place] [address] [address] [place] [address] Dentist Work Social History Tobacco Use Types Packs/Day Years [...] Assessment Author Status No 12/26/2022 1:13 PM KEYBOARD ACTION ASSEMBLER Tricia Siddiqui RN Active * Do you have serious difficulty walking or climbing stairs? Answer Date of Assessment Author Status No 12/26/2022 1:13 PM KEYBOARD ACTION ASSEMBLER Tricia Siddiqui RN Active * Do you have difficulty dressing or bathing? Answer Date of Assessment Author Status No 12/26/2022 1:13 PM KEYBOARD ACTION ASSEMBLER Tricia Siddiqui RN Active * Because of a physical, mental, or emotional condition, do you have difficulty doing errands alone such as visiting a doctor's office or shopping? Answer Date of Assessment Author Status No 12/26/2022 1:13 PM KEYBOARD ACTION ASSEMBLER Tricia Siddiqui RN Active documented as of this encounter Mental Status * Because of a physical, mental, or emotional condition, do you have serious difficulty concentrating, remembering, or making decisions? Answer Entry Date Author Status No 12/26/2022 1:13 PM KEYBOARD ACTION ASSEMBLER Tricia Siddiqui RN Active documented in this encounter Plan of Treatment Upcoming Encounters Date Type Department Care Team (Late st Contact Info) Description 10/28/2025 8:00 AM KEYBOARD ACTION ASSEMBLER Office Visit [facility] Multispecialty Care - [address] [address] [address] [place], [place] [phone] Taylor Sanchez MD [address] [place] [address] documented as of this encounter Goals Goal [...] Total Score: 1 09/29/20 23 1:25 PM KEYBOARD ACTION ASSEMBLER documented as of this encounter Care Teams Director Of Exhibits Relationship Specialty Start Date End Date Taylor Sanchez MD [address] [place] [address] PCP - General INTERNAL MEDICINE 06/18/22 documented as of this encounter
--- OUTSIDE RECORDS SUMMARY | 2025-09-28 21:08 | XMS_ITS | Encounter Summary ---
Author Organization [facility] Address [facility] [place] [address] Care Team Providers Care Band Teacher Name Role Phone Taylor Sanchez MD Primary Care Provider [phone] Encounter Details Date Type Department Care Team (Late st Contact Info) Description 12/03/2022 Flixel Photoshart Message Enc [facility] Medical Group Multispecialty Care - [address] [address] [address] [place] [address] [place] [address] [place] [address] [address] [place] [address] GERD Social History Tobacco Use Types Packs/Day Years Used Date Smoking Tobacco: Never Smokeless Tobacco: Never Comments:counseled by Dr Dahlia liang Alcohol Use Standard Drinks/Week Comments Not Currently 0 (1 standard drink = 0.6 oz pur e alcohol) PHQ-2 Answer Date Recorded Patient Health Questionnaire-2 Score 0 11/11/2022 Comments No Sex and Gender Information Value [...] suspected to have Coronavirus/COVID-19? No / Unsure 11/25/2022 1:17 PM SENIOR PRINCIPAL documented as of this encounter Plan of Treatment Upcoming Encounters Date Type Department Care Team (Late st Contact Info) Description 10/28/2025 8:00 AM SENIOR PRINCIPAL Office Visit [facility] Multispecialty Care - [address] [address] [address] [place] [address] Taylor Sanchez MD [address] [address] documented as of this encounter Visit Diagnoses Not on filedocumented in this encounter Care Teams Band Teacher Relationship Specialty [place] [address] [place] [address] [address] [place] [address] PCP - General INTERNAL MEDICINE 06/18/22 documented as of this encounter
--- OUTSIDE RECORDS SUMMARY | 2025-09-28 21:08 | XMS_ITS | Encounter Summary ---
Author Organization [facility] Address [address] [place] [address] Care Team Providers Care Sales Service Coordinator Name Role Phone Taylor Sanchez MD Primary Care Provider [phone] Encounter Details Date Type Department Care Team (Late Contact Info) Description 09/25/1998 Outpatient Historical [facility] Soto, Kurtis Galaviz MD NO ADDRESS ON FILE Social History Tobacco Use Types Packs/Day Years Used Date Smoking Tobacco: Never Assessed Comments Unknown Sex and Gender Information Value Date Recorded Sex Assigned at Not on file Legal Sex Female 3:30 AM FAGOTER Gender Identity Not on file Sexual Orientation Not on file documented as of this encounter Plan of Treatment Upcoming Encounters Date Type Department Care Team (Late Contact Info) Description 04/25/2026 2:15 PM CDT Office Visit [facility] Heart and Vascular - [place] [address] [place] [address] Cesar Banda MD [address] [place] [address] documented as of this encounter Visit Diagnoses Not on filedocumented in this encounter Care Teams Sales Service Coordinator Relationship Specialty Start Date End Date Taylor Sanchez MD [address] [place] [address] PCP - General Internal Medicine 02/15/25 documented as of this encounter
--- OUTSIDE RECORDS SUMMARY | 2025-09-28 21:08 | XMS_ITS | Encounter Summary ---
Author Organization [facility] Address [address] [place] [address] Care Team Providers Care Supervisor Scrap Preparation Name Role Phone Taylor Sanchze MD Primary Care Provider [phone] Encounter Details Date Type Department Care Team (Late st Contact Info) Description 06/29/2001 Outpatient Historical [facility] Pediatrics [address] [facility] [address] [facility] [address] [address] Kurtis Soto MD NO ADDRESS ON FILE Social History Tobacco Use Types Packs/Day Years Used Date Smoking Tobacco: Never Assessed Comments Unknown Sex and Gender Information Value Date Recorded Sex Assigned at Not on file 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 [facility] [address] [place] [phone] documented as of this encounter Visit Diagnoses Not on filedocumented in this encounter Care Teams Supervisor Scrap Preparation Relationship Specialty Start Date End Date Taylor Sanchez MD [address] [place] [address] PCP - General Internal Medicine 02/15/25 documented as of this encounter
--- OUTSIDE RECORDS SUMMARY | 2025-09-28 21:08 | XMS_ITS | Encounter Summary ---
Author Organization [facility] Address [facility] [place] [address] Care Team Providers Care Patient Care Specialist Name Role Phone Taylor Sanchez MD Primary Care Provider [phone] Encounter Details Date Type Department Care Team (Late st Contact Info) Description 04/07/2023 Hospital [facility] [address] [place] [id number] Boyd Constantino MD [address] [address] Social History Tobacco Use Types Packs/Day Years [...] place to sleep or slept in a [place] facility (including now)? No 12/26/2022 Comments No Sex [...] suspected to have Coronavirus/COVID-19? No / Unsure 03/25/2023 3:17 PM CDT documented as of this encounter [...] of Assessment Author Status No Risk Indicated 04/08/2023 10:45 AM Norma Boland RN Active * [place] Suicide Severity Rating Scale (Screener/Recent Self-Report) Question Answer Date of Assessment Author Status 1. Wish to be (Past 1 Month) No 04/08/2023 10:45 AM Loraine Boland RN A ctive 2. Non-Specific Active Suicidal Thoughts (Past 1 Month) No 04/08/2023 10:45 AM Loraine Boland RN A ctive 6. Suicidal Behavior (Lifetime) No 04/08/2023 10:45 AM Loraine Boland RN A ctive documented as of this encounter Mental Status * Because of a physical, mental, or emotional condition, do you have serious difficulty concentrating, remembering, or making decisions? Answer Entry Date Author Status No 12/26/2022 1:13 PM Tricia Roberson RN Active documented in this encounter Plan of Treatment Upcoming Encounters Date Type Department Care Team (Late st Contact Info) Description 10/28/2025 8:00 AM COVER STRIPPER Office Visit [facility] Multispecialty Care - [address] [place] [address] Taylor Sanchez MD [address] [facility] [address] [place] [address] documented as of this encounter Goals Goal Patient Goal Type Associated Problems Recent Progress Patient-Stated? Author Patient will return to prior living situation and remain independent in ADLs upon discharge from hospital Lifestyle Pati Luu RN documented as of this encounter Visit Diagnoses Not on filedocumented in this encounter Care Teams Patient Care Specialist Relationship Specialty Start Date End Date Taylor Sanchez MD [address] [facility] [address] [place] [address] PCP - General INTERNAL MEDICINE 06/18/22 documented as of this encounter
--- OUTSIDE RECORDS SUMMARY | 2025-09-28 21:08 | XMS_ITS | Encounter Summary ---
Author Organization [facility] Address [address] [place] [address] Care Team Providers Care Electrical Linesworker Name Role Phone Taylor Sanchez MD Primary Care Provider [phone] Encounter Details Date Type Department Care Team (Late st Contact Info) Description 09/21/[address] 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 Heart and Vascular - [place] [address] [place] [phone] Cesar Banda MD [address] [place] [phone] documented as of this encounter Visit Diagnoses Not on filedocumented in this encounter Care Teams Electrical Linesworker Relationship Specialty Start Date End Date Taylor Sanchez MD [address] [place] [address] PCP - General Internal Medicine 02/15/25 documented as of this encounter
--- OUTSIDE RECORDS SUMMARY | 2025-09-28 21:08 | XMS_ITS | Encounter Summary ---
Author Organization [facility] Address [facility] [place] [address] Care Team Providers Care Regulatory Attorney Name Role Phone Taylor Sanchez MD Primary Care Provider [phone] Encounter Details Date Type Department Care Team (Late Contact Info) Description 06/25/2022 Launchups Message Enc [facility] Multispecialty Care - [address] [place], [place] [id number] [place], [facility] Provider Xray Result Social History Tobacco Use Types Packs/Day Years Used Date Smoking Tobacco: Never Smokeless Tobacco: Never Comments:counseled by Dr Dahlia liang Alcohol Use Standard Drinks/Week Comments Not Currently 0 (1 standard drink = 0.6 oz pur e alcohol) PHQ-2 Answer Date Recorded PHQ-2 Score - If the patient scores above 3, please move on to questions 3-9 1 06/18/2022 Comments No Sex and Gender Information Value [...] suspected to have Coronavirus/COVID-19? Unable to assess 06/21/2022 1:24 PM CDT documented as of this encounter Plan of Treatment Upcoming Encounters Date Type Department Care Team (Late Contact Info) Description 10/28/2025 8:00 AM SPECIAL FORCES SPECIALIST Office Visit [facility] Multispecialty Care - [address] [address] [address] [address] [place] [address] Taylor Sanchez MD [address] [address] documented as of this encounter Visit Diagnoses Not on filedocumented in this encounter Care Teams Regulatory Attorney Relationship Specialty Start Date End Date Taylor Sanchez MD [facility] [address] PCP - General INTERNAL MEDICINE 06/18/22 documented as of this encounter
--- OUTSIDE RECORDS SUMMARY | 2025-09-28 21:08 | XMS_ITS | Clinical Summary ---
Author Organization [facility] Address [address] [place] [address] Phone Care Team Providers Care Pharmacology Teacher Name Role Phone Taylor Sanchez MD Primary Care Provider [phone] Allergies Active Allergy Reactions Criticality Noted Date Comments Amoxicillin Hives High 05/28/2012 Contact Metal Agent Rash Low 10/19/2024 Hydrocodone-Acetaminophen Hives High 10/19/2024 Penicillins Hives High 05/28/2012 Prednisone Hives High 10/19/2024 Medications rimegepant 75 mg Tablet, Rapid Dissolve Take 75 mg by mouth 1 time daily as needed. 02/12/2023 Active ferrous sulfate 325 mg (65 mg iron) tablet Take 1 Tablet by mouth daily with breakfast. 11/11/2022 Active aspirin (ARELI CHEWABLE) 81 mg Tablet, Chewable Take 81 mg by mouth daily. 12/27/2022 Active cetirizine (ZyrTEC) 10 mg tablet Take 10 mg by mouth daily. Active midodrine (PROAMATINE) 5 mg tablet Take 1 Tablet (5 mg) by mouth 3 times daily. 90 Tablet 04/27/2025 8:15 AM CDT 04/26/2025 Active Active Problems Problem Noted Date Diagnosed Date Right leg pain 04/26/2025 Lightheadedness 04/26/2025 S/P patent foramen ovale closure 10/19/2024 Atypical chest pain 10/19/2024 Routine follow-up 04/15/2018 Supervision of normal 11/08/2017 9 weeks gestation of Resolved Problems Problem Noted Date Diagnosed Date Resolved Date Asymptomatic microscopic hematuria 10/09/2017 11/08/2017 Decreased movements in second trimester 09/19/2011/08/2017 06/10/13 06/10/2013 11/08/2017 vag bld(AB+), no PNC, PNC():TITUS 7.0, amnisure neg, IV fluids, BV(flagyl), await urine cx, GBS/GC pend, 1h gtt 04/04/2013 11/08/2017 labor, GBS-, AB+ 06/14/2012 11/08/2017 Threatened labor, antepartum 06/03/2012 11/08/2017 Supervision of normal first 05/28/2012 11/08/2017 Pleuritic chest pain 024 Encounters Date Type Department Care Team Description 09/13/2025 External Device Data STL ABSTRACTION Provider, Abstract 09/13/2025 External Device Data [facility] ABSTRACTION Provider, Abstract 08/23/2025 External Device Data [facility] ABSTRACTION Provider, Abstract 08/16/2025 External Device Data [facility] ABSTRACTION Provider, Abstract 08/10/2025 External Device Data ST[facility] ABSTRACTION Provider, Abstract 08/02/2025 External Device Data ST[facility] ABSTRACTION Provider, Abstract 08/02/2025 External Device Data ST[facility] ABSTRACTION Provider, Abstract 08/02/2025 External Device Data STL ABSTRACTION Provider, Abstract 07/26/2025 External Device Data ST[facility] ABSTRACTION Provider, Abstract 07/06/2025 External Device Data ST[facility] ABSTRACTION Provider, Abstract 07/05/2025 External Device Data STL ABSTRACTION Provider, Abstract from Last 3 Months Immunizations Immunization Administration Dates Next Due (ADACEL/BOOSTRIX)(10 YR UP) TDAP VACCINE, 0.5ML, IM 10/20/2009 Influenza Seasonal Unspecified Formulation IM ,07/26/2024 Family History Medical History Relation Name Comments Healthy Father Breast Cancer Maternal Grandmother Colon Cancer Maternal Grandmother Ovarian Cancer Maternal Grandmother BRCA 1/2 Mother Healthy Mother Relation Name Status Comments Father Alive Maternal Grandmother Mother Alive Social History Tobacco Use Types Packs/Day Years Used Date Smoking Tobacco: Never Smokeless Tobacco: Never Tobacco Cessation:Counseling Given: Not Answered Alcohol Use Standard Drinks/Week Comments No 0 (1 standard drink = 0.6 oz pur e alcohol) Feeling Safe Answer Date Recorded Are you in a relationship wi th someone who hurts you emotionally and/or physically? No 02/15/2025 Comments No Sex and Gender Information Value Date Recorded Sex Assigned at Not on file Legal Sex Female 3:30 AM CONTROL EQUIPMENT ELECTRICIAN Gender Identity Not on file Sexual Orientation Not on file Occupation Industry Job Start Date Job End Date Not on file Not on file Not on file Not on file Not on file Not on file Not on file Not on file Last Filed Vital Signs Vital Sign Reading Time Taken Comments Blood Pressure 98/62 04/26/2025 2:16 PM CDT Pulse 72 04/26/2025 2:16 PM CDT Temperature 37.2 C (98.9 F) 02/15/2025 11:46 AM CDT Respiratory Rate 20 02/15/2025 11:46 AM CDT Oxygen Saturation 98% 04/26/2025 2:16 PM CDT Inhaled Oxygen Concentration - - Weight 76.2 kg (168 lb) 04/26/2025 2:16 PM CDT Height 175.3 cm (5' 9) 04/26/2025 2:16 PM CDT Body Mass Index 24.81 04/26/2025 2:16 PM CDT Plan of Treatment Upcoming Encounters Date Type Department Care Team (Late st Contact Info) Description 04/25/2026 2:15 PM CDT Office Visit [facility] [address] [place] [phone] Cesar Banda MD [address] [place] [address] Health Maintenance Due Date Last Done Comments HEPATITIS B VACCINES (1 of 3 - 19+ 3-dose series) 2013 06/02/2024 HPV/Cotest (21-29) 11/03/2020 11/03/2015 CERVICAL CANCER SCREENING 2024 HPV/Cotest (30-65) 2024 11/03/2015 PAP SMEAR 2024 11/03/2015 DTAP/TDAP/TD VACCINES (3 - Td or Tdap) 11/11/2032, 10/20/2009 INFLUENZA VACCINE Completed 07/18/2025, 07/26/2024 HPV VACCINES (No Doses Required) Completed Procedures Procedure Name Priority Date/Time Associated Diagnosis Comments CERV/VAG CYTO SCREEN PAP RLFX HPV Routine 11/03/2015 Well woman exam with routine gynecological exam from Last 3 Months or Most Recently Relevant to Health Maintenance Results * CERV/VAG CYTOPATH, THIN PREP IMAGR RFLX HPV (CP) (11/03/2015) Endocervical Laura Vanessa NP PATHOLOGY/CYTOLOGY ORDERABLES Final Result EXTERNAL LAB from Last 3 Months or Most Recently Relevant to Health Maintenance Insurance [employer] [id number] RX [employer] RX Member Subscriber Plan / Payer (Ef fective 2025-Present) Name:Ewa Mckenna Relation to Subscriber:Self Name:Ewa Mckenna Subscriber ID:Not on file Payer ID:Not on file Type:RX Commercial Address: [address] Advance Directives For more information, please contact: [phone] * Full Code (Latest Code Status on File) Date Activated Date Inactivated Comments 02/26/2018 3:29 AM 02/27/2018 2:14 PM * Full Code Date Activated Date Inactivated Comments 02/25/2018 11:23 PM 02/26/2018 3:29 AM * Full Code Date Activated Date Inactivated Comments 02/25/2018 10:41 PM 02/25/2018 11:23 PM * Full Code Date Activated Date Inactivated Comments 10/09/2017 11:50 AM 10/09/2017 4:24 PM * Full Code Date Activated Date Inactivated Comments 09/19/2017 6:11 PM 09/19/2017 9:50 PM Care Teams Pharmacology Teacher Relationship Specialty Start Date End Date Taylor Sanchez MD [address] [address] PCP - General Internal Medicine 02/15/25
--- OUTSIDE RECORDS SUMMARY | 2025-09-28 21:08 | XMS_ITS | Encounter Summary ---
Author Organization [facility] - [facility] Address Replaced by [facility] [place] [address] Care Team Providers Care Publishing Manager Name Role Phone Taylor Sanchez MD Primary Care Provider [phone] Encounter Details Date Type Department Care Team (Late st Contact Info) Description 06/20/2022 iVengot Message Enc [facility] Medical Group Multispecialty Care - [place] [address] [address] [address] [place] [address] Taylor Sanchez MD [address] [facility] [address] [place] [address] Side Effects Social History Tobacco Use Types Packs/Day Years [...] st Contact Info) Description 10/28/2025 8:00 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
== END 2025-09-28 19:17 | disposition short-term general hospital (02) ==
PROVIDERS: Emergency Provider Registered Nurse; PCP Internal Medicine
DX: R07.89 Other chest pain (principal); Z86.73 Personal history of transient ischemic attack (TIA), and cerebral infarction without residual deficits
CPT/HCPCS: 71046; 93005; 99213; A9270; G0463

== ENCOUNTER 2025-09-28 20:08 | Emergency (ER) | payer OTHER, SELFPAY ==
--- NOTE | ~2025-09-28 | XR_ITS ---
EXAMINATION: XR chest 2V DATE: 09/28/2025 20:44 INDICATION: Chest pain, shortness of breath TECHNIQUE: Frontal and lateral views of the chest were obtained. COMPARISON: Chest x-ray dated 09/28/2025 at 5:45 PM FINDINGS: Heart size is normal. Lungs are free of acute processes. No interval change from prior chest x-ray. IMPRESSION: 1. No acute findings. No interval change from earlier study of same date. Reviewed, dictated and finalized at location T. HING SUPERVISOR
--- NOTE | ~2025-09-28 | CT_ITS ---
CTA CHEST CLINICAL HISTORY: chest pain, s/p PFO repair . COMPARISON: Chest x-ray hours prior TECHNIQUE: Helical CTA performed from thoracic inlet to upper abdomen 100 mL Omnipaque 350 Coronal, sagittal reformats. Multiplanar MIPS CT images acquired with automatic exposure control for dose reduction DLP: 192 mGy-cm FINDINGS: Pulmonary arteries: No PE. Thoracic Aorta: No dissection or aneurysm. Heart/pericardium: Unremarkable. RV/LV ratio: Normal. Lungs/Pleura: Clear. Tracheobronchial tree: Patent. Nodes: No enlarged nodes. Calcified mediastinal nodes Bones: No acute bony abnormality. Soft tissues: Unremarkable. Visualized upper abdomen: Unremarkable. IMPRESSION: 1. No PE or other acute cardiopulmonary findings. Reviewed, dictated and finalized at location R. MOBILE TESTER
[2025-09-28 20:27] VITALS: BP 118/78; PULSE 74; RESP 18; TEMP 36.8; O2SAT 100
--- NOTE | 2025-09-28 20:37 | ECG_ITS ---
Test Date: 2025-09-28 23:47:05 Measurements Intervals Ward Rate: 65 P: 61 HI: 162 QRS: 27 QRSD: 118 T: 31 QT: 419 QTc: 439 Interpretive Statements SINUS RHYTHM LOW QRS VOLTAGE IN PRECORDIAL LEADS INCOMPLETE RIGHT BUNDLE BRANCH BLOCK INFERIOR INFARCT, AGE INDETERMINATE BORDERLINE ST-T WAVE ABNORMALITY- ANTERIOR LEADS BASELINE ARTIFACT- I, II, AVR, AVL, AVF ABNORMAL ECG Compared to ECG 09/28/2025 20:20:25 NO SIGNIFICANT CHANGE Electronically Signed On 09-29-2025 06:12:11 PERLITE GRINDER by Tiago George D.O.
[2025-09-28 20:46] LABS: Hematocrit 38.5 % (37.0-47.0); Hemoglobin 12.4 g/dL (12.0-15.0); Immature Granulocyte Percent A 0.1 % (0-0.5); Lymphocytes Absolute Auto 2.69 K/mm3 (0.9-3.2); Mean Corpuscular HGB Conc 32.2 g/dl (32-36); Mean Corpuscular Hemoglobin 28.4 pg (26-34); Mean Corpuscular Volume 88.3 fl (80-100); Nucleated Red Blood Cells Absolute Auto 0.000 K/mm3 (0.0-0.012); Nucleated Red Blood Cells Perc 0.0 % (0.0-0.2); Platelet Count Result 231 k/mm3 (150-375); Red Blood Count 4.36 M/mm3 (4.2-5.4); White Blood Count 8.2 K/mm3 (4.5-10.0)
[2025-09-28 20:59] LABS: Alanine Aminotransferase 11 U/L (6-35); Albumin Level 4.6 g/dL (3.5-5.1); Alkaline Phosphatase 62 U/L (38-126); Anion Gap 4 mmol/L (4-12); Aspartate Amino Transferase 23 U/L (14-36); Bilirubin,Total 0.4 mg/dL (0.2-1.3); Blood Urea Nitrogen 14 mg/dL (7-17); Calcium 9.3 mg/dL (8.4-10.2); Carbon Dioxide 29 mmol/L (22-30); Chloride 104 mmol/L (98-107); Estimated CRCL calculation 85 ml/min; Estimated Glomerular Filt Rate > 60; Glucose 95 mg/dL (65-110); Lipase 52 U/L (23-300); Potassium 3.8 mmol/L (3.4-5.0); Sodium 137 mmol/L (137-145); Total Protein 7.9 g/dL (6.3-8.2)
[2025-09-28 21:04] LABS: INR 1.0; Prothrombin Time 13.5 Seconds (11.1-14.7)
[2025-09-28 21:05] LABS: Partial Thromboplastin Time 29.2 Seconds (22.3-36.8)
[2025-09-28 21:11] LABS: Troponin I < 0.012 ng/mL (0.000-0.034)
--- NOTE | 2025-09-28 22:03 | ED.CHESTPAIN ---
HPI - Chest Pain General Chief Complaint: Chest Pain <Sandra Carson APRN - Last Filed: 09/29/25 01:51> Stated Complaint: Chest pain and difficulty breathing <Sandra Carson APRN - Last Filed: 09/29/25 01:51> Time Seen by Provider: 09/28/25 21:49 <Sandra Carson APRN - Last Filed: 09/29/25 01:51> History of Present Illness HPI narrative: Patient is a 30-year-old female who presents to the ER with chest tightness and pain. She reports her symptoms started about 24 hours ago. Patient endorses a recent history of congestion. She reports her pain is worse with expiration. Patient also endorses dizziness and shortness of breath. She reports most of the pain is on the left side of her chest. Patient denies any recent fevers, cough, or urinary symptoms. She endorses a history of a TIA, PFO, open-heart surgery, and thoracotomy. <Sandra Carson APRN - Last Filed: 09/29/25 01:51> Related Data Allergies/Adverse Reactions: Allergies Allergy/AdvReac Type Severity Reaction Status Date / Time Penicillins Allergy Severe Hives / Verified 09/28/25 17:23 Red Face amoxicillin Allergy Intermediate Hives Verified 09/28/25 17:23 cobalt Allergy Chest Pain Verified 09/28/25 17:23 nickel Allergy Chest Pain Verified 09/28/25 17:23 titanium Allergy Chest Pain Verified 09/28/25 17:23 prednisone AdvReac Flushing Verified 09/28/25 17:23 <Sandra Carson APRN - Last Filed: 09/29/25 01:51> Review of Systems Review of Systems: All systems reviewed & are unremarkable except as noted in HPI and below <Sandra Carson APRN - Last Filed: 09/29/25 01:51> PMFSH Past Medical History Medical History: Medical History PFO (patent foramen ovale) History of TIA (transient ischemic attack) December 2022 Vaginal symptom History of HPV infection <Sandra Carson APRN - Last Filed: 09/29/25 01:51> Surgical History Surgical History: Surgical History S/P patent foramen ovale closure March 2023 No pertinent past surgical history <Sandra Carson APRN - Last Filed: 09/29/25 01:51> Family History Family History: Family History Grandparent Breast cancer Other Carcinoma of colon No pertinent past surgical history <Sandra Carson APRN - Last Filed: 09/29/25 01:51> Social History Social History: Social History Smoking status: Never smoker Alcohol intake: current Drinks per week: 1 Alcohol use details: social Substance use: never Lack of Transportation: No Lack of Food: Never True Current Housing: I Have Housing Concerned About Future Housing: No Difficulty Paying Gas/Electric Bills: No Difficulty Paying for Meds: No Currently Unemployed: No Education: Associate Degree Difficulty w/ Childcare or Family Care: No Living arrangements: with family Gender identity (if verbalized by the patient): Female Sexual Orientation (if Verbalized by the Patient): Straight or Heterosexual Spiritual care concerns: No <Sandra Carson APRN - Last Filed: 09/29/25 01:51> Exam Narrative: GENERAL: Well appearing, well-nourished, non-toxic, in no acute distress. HEAD: Normocephalic, atraumatic. NECK: Supple. No adenopathy, no masses. RESPIRATORY: Airway patent, respirations nonlabored. Clear to auscultation bilaterally, no rales, rhonchi, wheezing. CARDIOVASCULAR: Regular rate and rhythm without murmurs, rubs, or gallops. Peripheral pulses 2+ and equal bilaterally. ABDOMINAL: Soft, nontender, nondistended, no hepatosplenomegaly. Normoactive BS. MUSCULOSKELETAL: Moves all extremities. Strength/ROM intact without gross deformities. SKIN: Warm, dry, normal color. No rashes. NEURO: A&O X3. Speech clear. Cranial nerves II-XII intact. No ataxic movements. PSYCHIATRIC: Appropriate mood and affect. Normal interaction. <Sandra Carson, LOCKSTITCH WAISTLINE JOINER - Last Filed: 09/29/25 01:51> Course CLINICAL DERMATOLOGIST/PA Physician Supervision This visit was performed by both a physician and an APC. I performed all aspects of the MDM as documented. <Marlon Vasquez, - Last Filed: 09/29/25 04:44> Vital Signs Vital signs: Vital Signs Temperature 98.2 F 09/28/25 20:27 Pulse Rate 74 09/28/25 20:27 Respiratory Rate 18 09/28/25 20:27 Blood Pressure 118/78 09/28/25 20:27 Pulse Oximetry 100 09/28/25 20:27 Oxygen Delivery Room Air 09/28/25 20:27 Temperature 98.2 F 09/28/25 20:27 Pulse Rate 70 09/29/25 01:01 Respiratory Rate 14 09/29/25 01:01 Blood Pressure 109/72 09/29/25 01:01 Pulse Oximetry 98 09/29/25 01:01 Oxygen Delivery Room Air 09/28/25 23:48 <Sandra Carson, LOCKSTITCH WAISTLINE JOINER - Last Filed: 09/29/25 01:51> Vital Signs Temperature 98.2 F 09/28/25 20:27 Pulse Rate 74 09/28/25 20:27 Respiratory Rate 18 09/28/25 20:27 Blood Pressure 118/78 09/28/25 20:27 Pulse Oximetry 100 09/28/25 20:27 Oxygen Delivery Room Air 09/28/25 20:27 Temperature 98.2 F 09/28/25 20:27 Pulse Rate 70 09/29/25 01:01 Respiratory Rate 14 09/29/25 01:01 Blood Pressure 109/72 09/29/25 01:01 Pulse Oximetry 98 09/29/25 01:01 Oxygen Delivery Room Air 09/28/25 23:48 <Marlon Vasquez, - Last Filed: 09/29/25 04:44> MDM MDM Narrative Medical decision making narrative: Patient is a 30-year-old female who presents to the ER with chest tightness and pain. She reports her symptoms started about 24 hours ago. Patient endorses a recent history of congestion. She reports her pain is worse with expiration. Patient also endorses dizziness and shortness of breath. She reports most of the pain is on the left side of her chest. Patient denies any recent fevers, cough, or urinary symptoms. She endorses a history of a TIA, PFO, open-heart surgery, and thoracotomy. Labs Ordered: CBC, CMP, TSH, proBNP, D-dimer, troponin, PTT, INR, COVID/flu/RSV Imaging Ordered: CTA chest, chest x-ray Medications Ordered: Results: Patient's CTA scan indicates no evidence of central pulmonary embolism. Normal heart size. No pericardial effusion. No focal consolidation, pleural effusion or pneumothorax. Diagnosis: Atypical chest pain Risks: HEART score: low risk HEART Score for Major Cardiac Events from [email or web address] on 09/29/2025 All calculations should be rechecked by clinician prior to use RESULT SUMMARY: 1 points Low Score (0-3 points) Risk of MACE of 0.9-1.7%. INPUTS: History ?> 1 = Moderately suspicious EKG ?> 0 = Normal Age ?> 0 = <45 Risk factors ?> 0 = No known risk factors Initial troponin ?> 0 = <Normal limit Consults: cardiology (outpatient), already established Patient Education/Shared MDM: Results of lab work and imaging shared with patient. She had concerns regarding her EKG, as the provider at urgent care told her that she had abnormal P waves. Patient was reassured that her EKG showed nothing emergent or acute. Reviewed EKG with attending physician, Dr. Vasquez, who reports there are no acute findings on pt's EKG. She was advised to have further evaluation with her wood piler. Patient strongly advised to maintain hydration status upon discharge. She will be discharged home with a prescription for muscle relaxants and NSAIDs. Strict return precautions provided. Patient verbalized understanding and is in agreement with plan. Vital signs stable at time of discharge. All questions answered. <Sandra Carson APRN - Last Filed: 09/29/25 01:51> Differential Diagnosis Differential Diagnosis: Atypical chest pain, STEMI, PE, pneumonia <Sandra Carson APRN - Last Filed: 09/29/25 01:51> Lab Data [facility] Lab Attestation statement: I personally reviewed the patient's lab results. <Sandra Carson APRN - Last Filed: 09/29/25 01:51> Result diagrams: 09/28/25 20:37 12/10/25 20:37 <Sandra BustosFawn Carson, LOCKSTITCH WAISTLINE JOINER - Last Filed: 09/29/25 01:51> Labs: Lab Results 09/28/25 09/28/25 09/28/25 Range/Units 20:37 22:31 23:48 WBC 8.2 (4.5-10.0) K/mm3 RBC 4.36 (4.2-5.4) M/mm3 Hgb 12.4 (12.0-15.0) g/dL Hct 38.5 (37.0-47.0) % MCV 88.3 (80-100) fl MCH 28.4 (26-34) pg MCHC 32.2 (32-36) g/dl RDW 14.0 (11.5-14.5) % Plt Count 231 (150-375) k/mm3 MPV 9.8 (7.4-10.4) fl Immature Gran % (Auto) 0.1 (0-0.5) % Neut % (Auto) 58.6 (45.5-73.1) % Lymph % (Auto) 33.0 (18.3-44.2) % [place] % (Auto) 7.1 (2.6-8.5) % Eos % (Auto) 0.7 (0-4.4) % Baso % (Auto) 0.5 (0.2-1.2) % Lymph # (Auto) 2.69 (0.9-3.2) K/mm3 [place] # (Auto) 0.6 (0.1-0.6) K/mm3 Eos # (Auto) 0.1 (0-0.3) K/mm3 Baso # (Auto) 0.0 (0.0-0.1) K/mm3 Abs Immat Gran (auto) 0.01 (0.00-0.031) K/mm3 Absolute Neuts (auto) 4.8 (1.3-6.7) K/mm3 Absolute Nucleated RBC 0.000 (0.0-0.012) K/mm3 Nucleated RBC % 0.0 (0.0-0.2) % PT 13.5 (11.1-14.7) Seconds INR 1.0 APTT 29.2 (22.3-36.8) Seconds D-Dimer < 0.27 (<0.48) ug/mL Sodium 137 (137-145) mmol/L Potassium 3.8 (3.4-5.0) mmol/L Chloride 104 (98-107) mmol/L Carbon Dioxide 29 (22-30) mmol/L Anion Gap 4 (4-12) mmol/L BUN 14 (7-17) mg/dL Creatinine 0.88 (0.7-1.0) mg/dL Estim Creat Clear Calc 85 ml/min Estimated GFR > 60 (59 - ) Glucose 95 (65-110) mg/dL Calcium 9.3 (8.4-10.2) mg/dL Total Bilirubin 0.4 (0.2-1.3) mg/dL AST 23 (14-36) U/L ALT 11 (6-35) U/L Alkaline Phosphatase 62 (38-126) U/L Troponin I < 0.012 < 0.012 (0.000-0.034) ng/mL NT-Pro-B Natriuret Pep 63 (19.9-100) pg/mL Total Protein 7.9 (6.3-8.2) g/dL Albumin 4.6 (3.5-5.1) g/dL Lipase 52 (23-300) U/L TSH (Reflex) 4.390 (0.465-4.68) uIU/mL Free T4 1.22 (0.78-2.19) ng/dL Total T3 1.30 (0.82-1.58) NG/ML POC Urine HCG, Qual (Negative) Influenza A (RT-PCR) Negative (Negative) Influenza B (RT-PCR) Negative (Negative) RSV (RT-PCR) Negative (Negative) SARS-CoV-2 RNA (RT-PCR) Negative (Negative) 09/29/25 Range/Units 00:00 WBC (4.5-10.0) K/mm3 RBC (4.2-5.4) M/mm3 Hgb (12.0-15.0) g/dL Hct (37.0-47.0) % MCV (80-100) fl MCH (26-34) pg MCHC (32-36) g/dl RDW (11.5-14.5) % Plt Count (150-375) k/mm3 MPV (7.4-10.4) fl Immature Gran % (Auto) (0-0.5) % Neut % (Auto) (45.5-73.1) % Lymph % (Auto) (18.3-44.2) % [place] % (Auto) (2.6-8.5) % Eos % (Auto) (0-4.4) % Baso % (Auto) (0.2-1.2) % Lymph # (Auto) (0.9-3.2) K/mm3 [place] # (Auto) (0.1-0.6) K/mm3 Eos # (Auto) (0-0.3) K/mm3 Baso # (Auto) (0.0-0.1) K/mm3 Abs Immat Gran (auto) (0.00-0.031) K/mm3 Absolute Neuts (auto) (1.3-6.7) K/mm3 Absolute Nucleated RBC (0.0-0.012) K/mm3 Nucleated RBC % (0.0-0.2) % PT (11.1-14.7) Seconds INR APTT (22.3-36.8) Seconds D-Dimer (<0.48) ug/mL Sodium (137-145) mmol/L Potassium (3.4-5.0) mmol/L Chloride (98-107) mmol/L Carbon Dioxide (22-30) mmol/L Anion Gap (4-12) mmol/L BUN (7-17) mg/dL Creatinine (0.7-1.0) mg/dL Estim Creat Clear Calc ml/min Estimated GFR (59 - ) Glucose (65-110) mg/dL Calcium (8.4-10.2) mg/dL Total Bilirubin (0.2-1.3) mg/dL AST (14-36) U/L ALT (6-35) U/L Alkaline Phosphatase (38-126) U/L Troponin I (0.000-0.034) ng/mL NT-Pro-B Natriuret Pep (19.9-100) pg/mL Total Protein (6.3-8.2) g/dL Albumin (3.5-5.1) g/dL Lipase (23-300) U/L TSH (Reflex) (0.465-4.68) uIU/mL Free T4 (0.78-2.19) ng/dL Total T3 (0.82-1.58) NG/ML POC Urine HCG, Qual Negative (Negative) Influenza A (RT-PCR) (Negative) Influenza B (RT-PCR) (Negative) RSV (RT-PCR) (Negative) SARS-CoV-2 RNA (RT-PCR) (Negative) <Sandra BustosFawn Carson, LOCKSTITCH WAISTLINE JOINER - Last Filed: 09/29/25 01:51> Lab Results 09/28/25 09/28/25 09/28/25 Range/Units 20:37 22:31 23:48 WBC 8.2 (4.5-10.0) K/mm3 RBC 4.36 (4.2-5.4) M/mm3 Hgb 12.4 (12.0-15.0) g/dL Hct 38.5 (37.0-47.0) % MCV 88.3 (80-100) fl MCH 28.4 (26-34) pg MCHC 32.2 (32-36) g/dl RDW 14.0 (11.5-14.5) % Plt Count 231 (150-375) k/mm3 MPV 9.8 (7.4-10.4) fl Immature Gran % (Auto) 0.1 (0-0.5) % Neut % (Auto) 58.6 (45.5-73.1) % Lymph % (Auto) 33.0 (18.3-44.2) % [place] % (Auto) 7.1 (2.6-8.5) % Eos % (Auto) 0.7 (0-4.4) % Baso % (Auto) 0.5 (0.2-1.2) % Lymph # (Auto) 2.69 (0.9-3.2) K/mm3 [place] # (Auto) 0.6 (0.1-0.6) K/mm3 Eos # (Auto) 0.1 (0-0.3) K/mm3 Baso # (Auto) 0.0 (0.0-0.1) K/mm3 Abs Immat Gran (auto) 0.01 (0.00-0.031) K/mm3 Absolute Neuts (auto) 4.8 (1.3-6.7) K/mm3 Absolute Nucleated RBC 0.000 (0.0-0.012) K/mm3 Nucleated RBC % 0.0 (0.0-0.2) % PT 13.5 (11.1-14.7) Seconds INR 1.0 APTT 29.2 (22.3-36.8) Seconds D-Dimer < 0.27 (<0.48) ug/mL Sodium 137 (137-145) mmol/L Potassium 3.8 (3.4-5.0) mmol/L Chloride 104 (98-107) mmol/L Carbon Dioxide 29 (22-30) mmol/L Anion Gap 4 (4-12) mmol/L BUN 14 (7-17) mg/dL Creatinine 0.88 (0.7-1.0) mg/dL Estim Creat Clear Calc 85 ml/min Estimated GFR > 60 (59 - ) Glucose 95 (65-110) mg/dL Calcium 9.3 (8.4-10.2) mg/dL Total Bilirubin 0.4 (0.2-1.3) mg/dL AST 23 (14-36) U/L ALT 11 (6-35) U/L Alkaline Phosphatase 62 (38-126) U/L Troponin I < 0.012 < 0.012 (0.000-0.034) ng/mL NT-Pro-B Natriuret Pep 63 (19.9-100) pg/mL Total Protein 7.9 (6.3-8.2) g/dL Albumin 4.6 (3.5-5.1) g/dL Lipase 52 (23-300) U/L TSH (Reflex) 4.390 (0.465-4.68) uIU/mL Free T4 1.22 (0.78-2.19) ng/dL Total T3 1.30 (0.82-1.58) NG/ML POC Urine HCG, Qual (Negative) Influenza A (RT-PCR) Negative (Negative) Influenza B (RT-PCR) Negative (Negative) RSV (RT-PCR) Negative (Negative) SARS-CoV-2 RNA (RT-PCR) Negative (Negative) 09/29/25 Range/Units 00:00 WBC (4.5-10.0) K/mm3 RBC (4.2-5.4) M/mm3 Hgb (12.0-15.0) g/dL Hct (37.0-47.0) % MCV (80-100) fl MCH (26-34) pg MCHC (32-36) g/dl RDW (11.5-14.5) % Plt Count (150-375) k/mm3 MPV (7.4-10.4) fl Immature Gran % (Auto) (0-0.5) % Neut % (Auto) (45.5-73.1) % Lymph % (Auto) (18.3-44.2) % [place] % (Auto) (2.6-8.5) % Eos % (Auto) (0-4.4) % Baso % (Auto) (0.2-1.2) % Lymph # (Auto) (0.9-3.2) K/mm3 [place] # (Auto) (0.1-0.6) K/mm3 Eos # (Auto) (0-0.3) K/mm3 Baso # (Auto) (0.0-0.1) K/mm3 Abs Immat Gran (auto) (0.00-0.031) K/mm3 Absolute Neuts (auto) (1.3-6.7) K/mm3 Absolute Nucleated RBC (0.0-0.012) K/mm3 Nucleated RBC % (0.0-0.2) % PT (11.1-14.7) Seconds INR APTT (22.3-36.8) Seconds D-Dimer (<0.48) ug/mL Sodium (137-145) mmol/L Potassium (3.4-5.0) mmol/L Chloride (98-107) mmol/L Carbon Dioxide (22-30) mmol/L Anion Gap (4-12) mmol/L BUN (7-17) mg/dL Creatinine (0.7-1.0) mg/dL Estim Creat Clear Calc ml/min Estimated GFR (59 - ) Glucose (65-110) mg/dL Calcium (8.4-10.2) mg/dL Total Bilirubin (0.2-1.3) mg/dL AST (14-36) U/L ALT (6-35) U/L Alkaline Phosphatase (38-126) U/L Troponin I (0.000-0.034) ng/mL NT-Pro-B Natriuret Pep (19.9-100) pg/mL Total Protein (6.3-8.2) g/dL Albumin (3.5-5.1) g/dL Lipase (23-300) U/L TSH (Reflex) (0.465-4.68) uIU/mL Free T4 (0.78-2.19) ng/dL Total T3 (0.82-1.58) NG/ML POC Urine HCG, Qual Negative (Negative) Influenza A (RT-PCR) (Negative) Influenza B (RT-PCR) (Negative) RSV (RT-PCR) (Negative) SARS-CoV-2 RNA (RT-PCR) (Negative) <Marlon Vasquez DO - Last Filed: 09/29/25 04:44> Imaging Data Attestation: I personally reviewed and interpreted this imaging study as follows: <Sandra Carson APRN - Last Filed: 09/29/25 01:51> Radiologist's impression: ITS Impressions Chest X-Ray 09/28/25 20:46 IMPRESSION: 1. No acute findings. No interval change from earlier study of same date. <Sandra Carson APRN - Last Filed: 09/29/25 01:51> ITS Impressions Chest X-Ray 09/28/25 20:46 IMPRESSION: 1. No acute findings. No interval change from earlier study of same date. <Marlon Vasquez DO - Last Filed: 09/29/25 04:44> Discharge Plan Discharge Clinical Impression: Atypical chest pain, Costalchondritis <Sandra Carson APRN - Last Filed: 09/29/25 01:51> Patient Disposition: Home <Sandra Carson APRN - Last Filed: 09/29/25 01:51> Condition: Stable <Sandra Carson APRN - Last Filed: 09/29/25 01:51> Instructions: Antibiotic Form, Costochondritis (ED), Noncardiac Chest Pain (ED) <Sandra Carson APRN - Last Filed: 09/29/25 01:51> Additional Instructions: Please return to the ER with any worsening symptoms. Follow-up with your wood piler as soon as possible, as discussed. Take all medications as prescribed, including regularly scheduled medications. You may take NSAID and muscle relaxants as needed for pain control. <Sandra Carson APRN - Last Filed: 09/29/25 01:51> Patient Language: Estonian <Sandra Carson APRN - Last Filed: 09/29/25 01:51> Prescriptions: New cyclobenzaprine 5 mg tablet 5 mg PO TID PRN (Reason: muscle spasm) Qty: 20 0RF ibuprofen 800 mg tablet 800 mg PO TID PRN (Reason: pain) Qty: 30 0RF <Sandra Carson APRN - Last Filed: 09/29/25 01:51> Follow-up/Referrals: Daniel,MD Taylor [Primary Care Provider, Unknown] <Sandra Carson APRN - Last Filed: 09/29/25 01:51> Stand Alone Forms: Work/School Release IP <Sandra Carson APRN - Last Filed: 09/29/25 01:51> Time of Disposition: 01:50 <Sandra Carson APRN - Last Filed: 09/29/25 01:51> 01:50 <Marlon Vasquez DO - Last Filed: 09/29/25 04:44>
--- OUTSIDE RECORDS SUMMARY | 2025-09-28 22:26 | XMS_ITS | Encounter Summary ---
Author Organization [facility] Address [address] [place] [address] Care Team Providers Care Fish Agent Name Role Phone Taylor Sanchez MD Primary Care Provider [phone] Encounter Details Date Type Department Care Team (Late st Contact Info) Description 01/07/2007 Outpatient Historical [facility] Pediatrics - [address] [facility] [address] [address] Kurtis Soto MD NO ADDRESS ON FILE Social History Tobacco Use Types Packs/Day Years Used Date Smoking Tobacco: Never Assessed Comments Unknown Sex and Gender Information Value Date Recorded Sex Assigned at Not on file Legal Sex Female 3:30 AM RN INFORMATICS Gender Identity Not on file Sexual Orientation Not on file documented as of this encounter Plan of Treatment Upcoming Encounters Date Type Department Care Team (Late st Contact Info) Description 04/25/2026 2:15 PM CDT Office Visit [facility] Heart and Vascular - [address] [place] [address] Cesar Banda MD [address] [place] [phone] documented as of this encounter Visit Diagnoses Not on filedocumented in this encounter Care Teams Fish Agent Relationship Specialty Start Date End Date Taylor Sanchez MD [address] [place] [address] PCP - General Internal Medicine 02/15/25 documented as of this encounter
--- OUTSIDE RECORDS SUMMARY | 2025-09-28 22:26 | XMS_ITS | Encounter Summary ---
Author Organization [facility] Address [address] [place] [address] Care Team Providers Care Metal Coater Operator Name Role Phone Taylor Sanchez MD Primary Care Provider [phone] Encounter Details Date Type Department Care Team (Late st Contact Info) Description 01/09/2004 Outpatient Historical [facility] Pediatrics - [address] [facility] [address] [address] Kurtis Soto MD NO ADDRESS ON FILE Social History Tobacco Use Types Packs/Day Years Used Date Smoking Tobacco: Never Assessed Comments Unknown Sex and Gender Information Value Date Recorded Sex Assigned at Not on file Legal Sex Female 3:30 AM ACID POLYMERIZATION OPERATOR Gender Identity Not on file Sexual Orientation Not on file documented as of this encounter Plan of Treatment Upcoming Encounters Date Type Department Care Team (Late st Contact Info) Description 04/25/2026 2:15 PM CDT Office Visit [facility] Heart and Vascular - [place] [place] [address] Cesar Banda MD [address] [place] [phone] documented as of this encounter Visit Diagnoses Not on filedocumented in this encounter Care Teams Metal Coater Operator Relationship Specialty Start Date End Date Taylor Sanchez MD [address] [place] [address] PCP - General Internal Medicine 02/15/25 documented as of this encounter
--- OUTSIDE RECORDS SUMMARY | 2025-09-28 22:26 | XMS_ITS | Encounter Summary ---
Author Organization [facility] Address [address] [place] [address] Care Team Providers Care Change Over Name Role Phone Taylor Sanchez MD Primary Care Provider [phone] Encounter Details Date Type Department Care Team (Late st Contact Info) Description 02/22/2004 Outpatient Historical [facility] Pediatrics - [address] [facility] [address] [address] Kurtis Soto MD NO ADDRESS ON FILE Social History Tobacco Use Types Packs/Day Years Used Date Smoking Tobacco: Never Assessed Comments Unknown Sex and Gender Information Value Date Recorded Sex Assigned at Not on file Legal Sex Female 3:30 AM PROFESSIONAL ENGINEER Gender Identity Not on file Sexual Orientation Not on file documented as of this encounter Plan of Treatment Upcoming Encounters Date Type Department Care Team (Late st Contact Info) Description 04/25/2026 2:15 PM CDT Office Visit [facility] Heart and Vascular - [address] [place] [address] Cesar Banda MD [address] [place] [phone] documented as of this encounter Visit Diagnoses Not on filedocumented in this encounter Care Teams Change Over Relationship Specialty Start Date End Date Taylor Sanchez MD [address] [place] [address] PCP - General Internal Medicine 02/15/25 documented as of this encounter
--- OUTSIDE RECORDS SUMMARY | 2025-09-28 22:26 | XMS_ITS | Encounter Summary ---
Author Organization [facility] Address [address] [place] [address] Care Team Providers Care Lounge Car Attendant Name Role Phone Taylor Sanchez MD Primary Care Provider Encounter Details Date Type Department Care Team (Late st Contact Info) Description 03/15/2004 Outpatient Historical [facility] Pediatrics - [address] [facility] [address] [address] Kurtis Soto MD NO ADDRESS ON FILE Social History Tobacco Use Types Packs/Day Years Used Date Smoking Tobacco: Never Assessed Comments Unknown Sex and Gender Information Value Date Recorded Sex Assigned at Not on file Legal Sex Female 3:30 AM BEEF BREAKER Gender Identity Not on file Sexual Orientation Not on file documented as of this encounter Plan of Treatment Upcoming Encounters Date Type Department Care Team (Late st Contact Info) Description 04/25/2026 2:15 PM CDT Office Visit [facility] Heart and Vascular - [place] [place] [address] Cesar Banda MD [address] [place] [phone] documented as of this encounter Visit Diagnoses Not on filedocumented in this encounter Care Teams Lounge Car Attendant Relationship Specialty Start Date End Date Taylor Sanchez MD [address] [place] [address] PCP - General Internal Medicine 02/15/25 documented as of this encounter
--- OUTSIDE RECORDS SUMMARY | 2025-09-28 22:26 | XMS_ITS | Encounter Summary ---
Author Organization [facility] Address [address] [place] [address] Care Team Providers Care Venue Coordinator Name Role Phone Taylor Sanchez MD Primary Care Provider Encounter Details Date Type Department Care Team (Late st Contact Info) Description 08/24/2003 Outpatient Historical [facility] Pediatrics - [address] [facility] [address] [facility] [address] [address] Kurtis Soto MD NO ADDRESS ON FILE Social History Tobacco Use Types Packs/Day Years Used Date Smoking Tobacco: Never Assessed Comments Unknown Sex and Gender Information Value Date Recorded Sex Assigned at Not on file Legal Sex Female 3:30 AM RN BUILDING Gender Identity Not on file Sexual Orientation Not on file documented as of this encounter Plan of Treatment Upcoming Encounters Date Type Department Care Team (Late st Contact Info) Description 04/25/2026 2:15 PM CDT Office Visit [facility] Heart and Vascular - [place] [place] [address] Cesar Banda MD [address] [place] [phone] documented as of this encounter Visit Diagnoses Not on filedocumented in this encounter Care Teams Venue Coordinator Relationship Specialty Start Date End Date Taylor Sanchez MD [address] [place] [address] PCP - General Internal Medicine 02/15/25 documented as of this encounter
--- OUTSIDE RECORDS SUMMARY | 2025-09-28 22:26 | XMS_ITS | Clinical Summary ---
Author Organization [facility] Address [address] [place] [address] Care Team Providers Care Icer Hand Name Role Phone Taylor Sanchez MD Primary Care Provider [phone] Diego rByant MD Unavailable Kurt Herndon MD Unavailable [phone] Allergies Active Allergy Reactions Criticality Noted Date Comments Amoxicillin Hives Medium 11/16/2022 Tolerates cephalosporins Nickel Itching,Rash Medium 07/22/2023 Hydrocodone-Acetamino phen Hives Medium 04/05/2024 Penicillins Hives Medium 11/16/2022 [place] Tar Hives,Urticaria Medium 09/28/2022 Prednisolone Other (See [...] Tobacco: Never Tobacco Cessation:Counseling Given: Not Answered [facility] Utilities Answer Date Recorded In the past 12 months has [facility] [employer], oil, or water [employer] threatened to shut off services in your [...] often do you attend chur ch or catholic services? 1 to 4 times per year 03/08/2024 Do you belong to any clubs o r organizations such as jew groups, unions, fraternal or athletic groups, or [...] any time in the past 12 m [facility], were you homeless or living in a fci (including now)? No 03/08/2024 Personal Safety Answer Date Recorded Have you ever been in or are you currently in a harmful physical or emotional relationship or is someone making you feel afraid or unsafe? Denies 03/05/2024 Comments No Sex and Gender Information Value Date Recorded Sex Assigned at Not on file Legal Sex Female 10:39 PM DIRECT MARKETING COORDINATOR Gender Identity Not on file Sexual Orientation [...] this topic Medical Devices Implanted Type Area Mining Captain Device Identifier Shelf Expiration Date Model / Serial / Lot Cry[employer] Inc Graft Biological Cardiovascular Photofix 6x8cm Acellular Dermis Pfp 6x8 - [id number] Implanted:Qty: 1 on 03/05/2024 by Kurt Herndon MD at [facility] Graft N/A: [employer] 11/15/2025 PFP 6X8 / / [id number] [employer] 18f Manta Vascular Closure Device 2114 - [id number] Implanted:Qty: 1 on 03/05/2024 by Kurt Herndon MD at [facility] Right: Groin [employer] 04/08/2025 2115 / / [id number] Insurance [facility] CHOICE PL[facility] H[facility]/PPO [place]: [place] [address] [place] [id number] [facility] CHOICE PLUS [facility] H[facility]/PPO Address: [address] [place] [address] [place] [phone] [facility] CHOICE PL[facility] H[facility]/PPO Address: [address] [place] [address] Advance Directives For more information, please contact: [phone] * Full Code (Latest Code Status on File) Date Activated Date Inactivated Comments 03/05/2024 11:36 AM 03/09/2024 4:42 PM Care Teams Icer Hand Relationship Specialty Start Date End Date Taylor Sanchez MD [address] [place] [address] PCP - General Internal Medicine 11/16/22 Diego Bryant MD [address] [place] [address] Referring Physician Cardiology 01/28/24 Kurt Herndon MD [address] [facility] [address] [place] [address] Consulting Physician Cardiothoracic Surgery 01/28/24
--- OUTSIDE RECORDS SUMMARY | 2025-09-28 22:26 | XMS_ITS | Encounter Summary ---
Author Organization [facility] - [facility] Address [facility] [place] [address] Care Team Providers Care Residential Case Manager Name Role Phone Taylor Sanchez MD Primary Care Provider [phone] Encounter Details Date Type Department Care Team (Late st Contact Info) Description 12/03/2022 [employer] Message Enc [facility] Medical Group Multispecialty Care - [place] [address] [address] [place] [address] [place] [address] [place] [address] [address] [place] [address] GERD Social History Tobacco Use [...] Coronavirus/COVID-19? No / Unsure 11/25/2022 1:17 PM HIGH SPEED OPERATOR documented as of this encounter Plan of Treatment Upcoming Encounters Date Type Department Care Team (Late st Contact Info) Description 10/28/2025 8:00 AM HIGH SPEED OPERATOR Office Visit [facility] Medical Group Multispecialty Care - [place] [address] [address] [address] [place] [address] Taylor Sanchez MD [address] [address] documented as of this encounter Visit Diagnoses Not on filedocumented in this encounter Care Teams Residential Case Manager Relationship Specialty [place] [address] [place] [address] [address] [place] [address] PCP - General INTERNAL MEDICINE 06/18/22 documented as of this encounter
--- OUTSIDE RECORDS SUMMARY | 2025-09-28 22:26 | XMS_ITS | Encounter Summary ---
Author Organization [facility] - [facility] Address [facility] [place] [address] Care Team Providers Care Sign Artist Name Role Phone Taylor Sanchez MD Primary Care Provider [phone] Encounter Details Date Type Department Care Team (Late st Contact Info) Description 02/06/2023 3Gear Systemst Message Enc [facility] Medical Group Multispecialty Care - [place] [address] [address] [address] [place] [address] [place] [address] [place] [address] [address] [place] [address] ER Visit Social History Tobacco [...] place to sleep or slept in a mcc (including now)? No 12/26/2022 Comments No Sex [...] 4:40 PM Fanta Alvarez RN Active * [place] Suicide Severity Rating Scale (Screener/Recent Self-Report) Question [...] st Contact Info) Description 10/28/2025 8:00 AM TRAINING PERSONNEL SUPERVISOR Office Visit [facility] Medical Group Multispecialty Care - [address] [place] [address] Taylor Sanchez MD [address] [facility] [address] [place] [address] documented as of this encounter Goals Goal Patient Goal Type Associated Problems Recent Progress Patient-Stated? Author Patient will return to prior living situation and remain independent in ADLs upon discharge from hospital Lifestyle Pati Luu RN documented as of this encounter Visit Diagnoses Not on filedocumented in this encounter Care Teams Sign Artist Relationship Specialty Start Date End Date Taylor Sanchez MD [address] [facility] [address] [place] [address] PCP - General INTERNAL MEDICINE 06/18/22 documented as of this encounter
--- OUTSIDE RECORDS SUMMARY | 2025-09-28 22:26 | XMS_ITS | Encounter Summary ---
Author Organization [facility] Address [facility] [place] [address] Care Team Providers Care Service Desk Analyst Name Role Phone Taylor Sanchez MD Primary Care Provider [phone] Encounter Details Date Type Department Care Team (Late st Contact Info) Description 03/11/2023 Hospital Orders Only [facility] Operations And Maintenance Manager [address] [address] Jacek Linn MD,PHD Social History Tobacco Use [...] place to sleep or slept in a halfway (including now)? No 12/26/2022 Comments No Sex [...] Author Status No 12/26/2022 1:13 PM Tricia oRberson RN Active * Are you blind or [...] 10:29 AM Irasema Bhatia RN Active * [place] Suicide Severity Rating Scale (Screener/Recent Self-Report) Question [...] st Contact Info) Description 10/28/2025 8:00 AM SCROLL MACHINE OPERATOR Office Visit [facility] Medical Group Multispecialty Care - [place] [address] [address] [place] [address] Taylor Sanchez MD [address] [place] [address] documented as of this encounter Goals Goal Patient Goal Type Associated Problems Recent Progress Patient-Stated? Author Patient will return to prior living situation and remain independent in ADLs upon discharge from hospital Lifestyle No Pati Brown RN documented as of this encounter Visit Diagnoses Not on filedocumented in this encounter Care Teams Service Desk Analyst Relationship Specialty Start Date End Date Taylor Sanchez MD [address] [address] PCP - General INTERNAL MEDICINE 06/18/22 documented as of this encounter
--- OUTSIDE RECORDS SUMMARY | 2025-09-28 22:27 | XMS_ITS | Encounter Summary ---
Author Organization [facility] Address [facility] [place] [address] Care Team Providers Care Social Organization Professor Name Role Phone Taylor Sanchez MD Primary Care Provider [phone] Encounter Details Date Type Department Care Team (Late st Contact Info) Description 07/30/[address] [employer] [address] [facility] Medical Group Multispecialty Care - [place] [address] [address] [place] [address] [place] [address] [place] [address] [address] [place] [address] Rash Social History Tobacco Use [...] place to sleep or slept in a longterm (including now)? No 12/26/2022 Comments No Sex [...] 1:13 PM Tricia oRberson RN Active * Over the past 2 [...] Date Author Status No 12/26/2022 1:13 PM COMPUTER CONSULTANT Tricia Siddiqui RN Active documented in this encounter Plan of Treatment Upcoming Encounters Date Type Department Care Team (Late st Contact Info) Description 10/28/2025 8:00 AM COMPUTER CONSULTANT Office Visit [facility] Medical Group Multispecialty Care - [place] [address] [address] [place], [place] [address] Taylor Sanchez MD [address] [facility] [address] [place] [address] documented as of this encounter Goals Goal Patient Goal Type Associated Problems Recent Progress Patient-Stated? Author Patient will return to prior living situation and remain independent in ADLs upon discharge from hospital Lifestyle No Pati Brown RN documented as of this encounter Visit Diagnoses Not on filedocumented in this encounter Care Teams Social Organization Professor Relationship Specialty [place] [address] [place] [address] [address] [place] [address] PCP - General INTERNAL MEDICINE 06/18/22 documented as of this encounter
--- OUTSIDE RECORDS SUMMARY | 2025-09-28 22:27 | XMS_ITS | Encounter Summary ---
Author Organization [facility] Address [address] [place] [address] Care Team Providers Care College Or University Department Head Name Role Phone Taylor Sanchez MD Primary Care Provider [phone] Encounter Details Date Type Department Care Team (Late st Contact Info) Description 01/19/2002 Outpatient Historical [facility] Pediatrics - [address] [facility] [address] [facility] [address] [address] Kurtis Soto MD NO ADDRESS ON FILE Social History Tobacco Use Types Packs/Day Years Used Date Smoking Tobacco: Never Assessed Comments Unknown Sex and Gender Information Value Date Recorded Sex Assigned at Not on file Legal Sex Female 3:30 AM 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 [place] [address] documented as of this encounter Visit Diagnoses Not on filedocumented in this encounter Care Teams College Or University Department Head Relationship Specialty Start Date End Date Taylor Sanchez MD [address] [place] [address] PCP - General Internal Medicine 02/15/25 documented as of this encounter
--- OUTSIDE RECORDS SUMMARY | 2025-09-28 22:27 | XMS_ITS | Encounter Summary ---
Author Organization [facility] Address [address] [place] [address] Care Team Providers Care Cook Manager Name Role Phone Taylor Sanchez MD Primary Care Provider [phone] Encounter Details Date Type Department Care Team (Late st Contact Info) Description 03/26/2002 Outpatient Historical [facility] Pediatrics - [address] [facility] [address] [facility] [address] [address] Kurtis Soto MD NO ADDRESS ON FILE Social History Tobacco Use Types Packs/Day Years Used Date Smoking Tobacco: Never Assessed Comments Unknown Sex and Gender Information Value Date Recorded Sex Assigned at Not on file Legal Sex Female 3:30 AM VEST BASTER Gender Identity Not on file Sexual Orientation Not on file documented as of this encounter Plan of Treatment Upcoming Encounters Date Type Department Care Team (Late st Contact Info) Description 04/25/2026 2:15 PM CDT Office Visit [facility] Heart and Vascular - [place] [address] [place] [address] Cesar Banda MD [address] [place] [address] documented as of this encounter Visit Diagnoses Not on filedocumented in this encounter Care Teams Cook Manager Relationship Specialty Start Date End Date Taylor Sanchez MD [address] [place] [address] PCP - General Internal Medicine 02/15/25 documented as of this encounter
--- OUTSIDE RECORDS SUMMARY | 2025-09-28 22:27 | XMS_ITS | Encounter Summary ---
Author Organization [facility] Address [address] [place] [address] Care Team Providers Care Poultry Farm Manager Name Role Phone Taylor Sanchez MD Primary Care Provider [phone] Encounter Details Date Type Department Care Team (Late st Contact Info) Description 10/19/1998 Outpatient Historical [facility] Pediatrics [address] [address] Omar Martínez MD NO ADDRESS ON FILE Social History Tobacco Use Types Packs/Day Years Used Date Smoking Tobacco: Never Assessed Comments Unknown Sex and Gender Information Value Date Recorded Sex Assigned at Not on file Legal Sex Female 3:30 AM ENTREPRENEUR Gender Identity Not on file Sexual Orientation Not on file documented as of this encounter Plan of Treatment Upcoming Encounters Date Type Department Care Team (Late st Contact Info) Description 04/25/2026 2:15 PM CDT Office Visit [facility] Heart and Vascular - [place] [place] [address] Cesar Banda MD [address] [place] [address] documented as of this encounter Visit Diagnoses Not on filedocumented in this encounter Care Teams Poultry Farm Manager Relationship Specialty Start Date End Date Taylor Sanchez MD [address] [place] [address] PCP - General Internal Medicine 02/15/25 documented as of this encounter
--- OUTSIDE RECORDS SUMMARY | 2025-09-28 22:27 | XMS_ITS | Encounter Summary ---
Author Organization [facility] Address [facility] [place] [address] Care Team Providers Care Heel Cutter Name Role Phone Taylor Sanchez MD Primary Care Provider [phone] Encounter Details Date Type Department Care Team (Late st Contact Info) Description 04/07/2023 Hospital [facility] [address] [place] [address] Boyd Constantino MD [address] [address] Social History Tobacco Use Types [...] place to sleep or slept in a long term (including now)? No 12/26/2022 Comments No Sex [...] 10:45 AM Norma Boland RN Active * [place] Suicide Severity Rating Scale (Screener/Recent Self-Report) Question [...] st Contact Info) Description 10/28/2025 8:00 AM SALVAGE ENGINEERING TECHNICIAN Office Visit [facility] Medical Group Multispecialty Care - [address] [place] [address] Taylor Sanchez MD [address] [facility] [address] [place] [address] documented as of this encounter Goals Goal Patient Goal Type Associated Problems Recent Progress Patient-Stated? Author Patient will return to prior living situation and remain independent in ADLs upon discharge from hospital Lifestyle Pati Luu RN documented as of this encounter Visit Diagnoses Not on filedocumented in this encounter Care Teams Heel Cutter Relationship Specialty Start Date End Date Taylor Sanchez MD [address] [facility] [address] [place] [address] PCP - General INTERNAL MEDICINE 06/18/22 documented as of this encounter
--- OUTSIDE RECORDS SUMMARY | 2025-09-28 22:27 | XMS_ITS | Encounter Summary ---
Author Organization [facility] Address [address] [place] [address] Care Team Providers Care Clinical Trials Assistant Name Role Phone Taylor Sanchez MD Primary Care Provider [phone] Encounter Details Date Type Department Care Team (Late st Contact Info) Description 05/26/2000 Outpatient Historical [facility] Pediatrics [address] [facility] [address] [facility] [address] [address] Kurtis Soto MD NO ADDRESS ON FILE Social History Tobacco Use Types Packs/Day Years Used Date Smoking Tobacco: Never Assessed Comments Unknown Sex and Gender Information Value Date Recorded Sex Assigned at Not on file Legal Sex Female 3:30 AM SHOP FOREMAN Gender Identity Not on file Sexual Orientation Not on file documented as of this encounter Plan of Treatment Upcoming Encounters Date Type Department Care Team (Late st Contact Info) Description 04/25/2026 2:15 PM CDT Office Visit [facility] Heart and Vascular - [place] [address] [place] [address] Cesar Banda MD [address] [place] [address] documented as of this encounter Visit Diagnoses Not on filedocumented in this encounter Care Teams Clinical Trials Assistant Relationship Specialty Start Date End Date Taylor Sanchez MD [address] [place] [address] PCP - General Internal Medicine 02/15/25 documented as of this encounter
--- OUTSIDE RECORDS SUMMARY | 2025-09-28 22:27 | XMS_ITS | Encounter Summary ---
Author Organization [facility] Address [address] [place] [address] Care Team Providers Care Program Strategist Name Role Phone Taylor Sanchez MD Primary Care Provider [phone] Encounter Details Date Type Department Care Team (Late Contact Info) Description 09/25/1998 Outpatient Historical [facility] Soto, Kurtis Galaviz MD NO ADDRESS ON FILE Social History Tobacco Use Types Packs/Day Years Used Date Smoking Tobacco: Never Assessed Comments Unknown Sex and Gender Information Value Date Recorded Sex Assigned at Not on file Legal Sex Female 3:30 AM BLOOD BANK MANAGER Gender Identity Not on file Sexual Orientation Not on file documented as of this encounter Plan of Treatment Upcoming Encounters Date Type Department Care Team (Late Contact Info) Description 04/25/2026 2:15 PM CDT Office Visit [facility] Heart and Vascular - [place] [address] [place] [address] Cesar Banda MD [address] [place] [address] documented as of this encounter Visit Diagnoses Not on filedocumented in this encounter Care Teams Program Strategist Relationship Specialty Start Date End Date Taylor Sanchez MD [address] [place] [address] PCP - General Internal Medicine 02/15/25 documented as of this encounter
--- OUTSIDE RECORDS SUMMARY | 2025-09-28 22:27 | XMS_ITS | Clinical Summary ---
Author Organization [facility] Address [facility] [place] [address] Care Team Providers Care Bench Hand Name Role Phone Taylor Sanchez MD Primary Care Provider [phone] Allergies Active Allergy Reactions Criticality Noted Date Comments Amoxicillin Hives 06/18/2022 Hydrocodone-Acetaminoph en Hives Medium 04/05/2024 Metals Other (see comment) 07/22/2023 Gold, Nickel, and Titatium Nickel Rash,Itching Low 07/22/2023 Penicillins Hives 1994 [place] Tar Hives 09/28/2022 Prednisolone Other (see comment) [...] device. I recommended that she see another director distribution for second opinion. I also told her that I would contact her director distribution. Addendum: I contacted her director distribution a few days after her appointment. Her director distribution did more research and recommended a steroid [...] place to sleep or slept in a custodial (including now)? No 12/26/2022 Comments No Sex [...] st Contact Info) Description 10/28/2025 8:00 AM OPERATIONS SUPERVISOR CHEMICAL CLEANING Office Visit [facility] Medical Group Multispecialty Care - [place] [address] [address] [address] [place] [address] Taylor Sanchez MD [address] [facility] [address] [place] [address] Health Maintenance Due Date Last Done Comments [...] Screening wi th HPV 2024 PHQ-2 (Physician [place]) 10/20/2024 10/05/2024 COVID-19 Vaccine (1 - 2024-2 [...] Luu RN Medical Devices Implanted Type Area Packager Hand Device Identifier Shelf Expiration Date Model / Serial / Lot Shahana Pfo Closure Device-04/08/20 23 Implanted:03/21 by Boyd Constantino MD (Quantity not on file) Closure Device [employer] 06/19/2025 [id number] / / [id number] Procedures Procedure Name Priority Date/Time Associated Diagnosis [...] VE NON-REACT STAN 06/19/2022 7:29 PM CDT [facility] Comment: ANTIBODIES TO HCV NOT DETECTED. DOES NOT EXCLUDE THE POSSIBILITY OF EXPOSURE TO HCV. 06/18/2022 12:2 9 PM CDT us Taylor Sanchez MD LABORATORY Final Result [facility] [address] [place] [address], [id number] * PAP SMEAR WITH HPV (04/16/2022) 04/16/2022 Narrative 04/16/2022 Ordered by an unspecified provider. us Documents Scanned SCANNING Final Result from Last 3 Months or Most Recently Relevant to Health Maintenance Insurance [facility] Advance Directives * Full Code (Latest Code [...] 10:30 AM 12/26/2022 8:45 PM Care Teams Bench Hand Relationship Specialty Start Date End Date Taylor Sanchez MD [address] [address] PCP - General INTERNAL MEDICINE 06/18/22
--- OUTSIDE RECORDS SUMMARY | 2025-09-28 22:27 | XMS_ITS | Encounter Summary ---
Author Organization [facility] Address [address] [place] [address] Care Team Providers Care Sound Printer Name Role Phone Taylor Sanchez MD Primary Care Provider [phone] Encounter Details Date Type Department Care Team (Late st Contact Info) Description 10/30/1999 Outpatient Historical [facility] Pediatrics [address] [facility] [address] [facility] [address] [address] Kurtis Soto MD NO ADDRESS ON FILE Social History Tobacco Use Types Packs/Day Years Used Date Smoking Tobacco: Never Assessed Comments Unknown Sex and Gender Information Value Date Recorded Sex Assigned at Not on file Legal Sex Female 3:30 AM ABRASIVE MIXER Gender Identity Not on file Sexual Orientation Not on file documented as of this encounter Plan of Treatment Upcoming Encounters Date Type Department Care Team (Late st Contact Info) Description 04/25/2026 2:15 PM CDT Office Visit [facility] Heart and Vascular - [place] [address] [place] [address] Cesar Banda MD [address] [place] [address] documented as of this encounter Visit Diagnoses Not on filedocumented in this encounter Care Teams Sound Printer Relationship Specialty Start Date End Date Taylor Sanchez MD [address] [place] [address] PCP - General Internal Medicine 02/15/25 documented as of this encounter
--- OUTSIDE RECORDS SUMMARY | 2025-09-28 22:27 | XMS_ITS | Encounter Summary ---
Author Organization [facility] Address [address] [place] [address] Care Team Providers Care Broadcast Operations Technician Name Role Phone Taylor Sanchez MD Primary Care Provider Encounter Details Date Type Department Care Team (Late st Contact Info) Description 11/16/1999 Outpatient Historical [facility] Pediatrics [address] [facility] [address] [facility] [address] [phone] Kurtis Soto MD NO ADDRESS ON FILE Social History Tobacco Use Types Packs/Day Years Used Date Smoking Tobacco: Never Assessed Comments Unknown Sex and Gender Information Value Date Recorded Sex Assigned at Not on file 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 [place] [address] documented as of this encounter Visit Diagnoses Not on filedocumented in this encounter Care Teams Broadcast Operations Technician Relationship Specialty Start Date End Date Taylor Sanchez MD [address] [place] [address] PCP - General Internal Medicine 02/15/25 documented as of this encounter
--- OUTSIDE RECORDS SUMMARY | 2025-09-28 22:27 | XMS_ITS | Clinical Summary ---
Author Organization [facility] Address [address] [place] [address] Phone Care Team Providers Care Legal Assistant Name Role Phone Taylor Sanchez MD Primary Care Provider [phone] Allergies Active Allergy Reactions Criticality Noted Date [...] on file Legal Sex Female 3:30 AM CIRCULATION DIRECTOR Gender Identity Not on file Sexual Orientation [...] [facility] [place] [facility] [address] [place] [address] Cesar Banda MD [address] [place] [address] Health Maintenance Due Date Last [...] Most Recently Relevant to Health Maintenance Insurance [employer] [id number] RX [employer] RX Member Subscriber Plan / Payer (Ef fective 2025-Present) Name:Ewa Mckenna Relation to Subscriber:Self Name:Ewa Mckenna Subscriber ID:Not on file Payer ID:Not on file Type:RX Commercial Address: [address] Advance Directives For more information, please contact: [phone] * Full Code (Latest Code Status on [...] 6:11 PM 09/19/2017 9:50 PM Care Teams Legal Assistant Relationship Specialty Start Date End Date Taylor Sanchez MD [address] [address] PCP - General Internal Medicine 02/15/25
--- OUTSIDE RECORDS SUMMARY | 2025-09-28 22:27 | XMS_ITS | Encounter Summary ---
Author Organization [facility] Address [address] [place] [address] Care Team Providers Care Powerplant Operator Name Role Phone Taylor Sanchez MD Primary Care Provider [phone] Encounter Details Date Type Department Care Team (Late st Contact Info) Description 02/19/2003 Outpatient Historical [facility] Pediatrics - [address] [facility] [address] [facility] [address] [address] Kurtis Soto MD NO ADDRESS ON FILE Social History Tobacco Use Types Packs/Day Years Used Date Smoking Tobacco: Never Assessed Comments Unknown Sex and Gender Information Value Date Recorded Sex Assigned at Not on file 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 [place] [address] documented as of this encounter Visit Diagnoses Not on filedocumented in this encounter Care Teams Powerplant Operator Relationship Specialty Start Date End Date Taylor Sanchez MD [address] [place] [address] PCP - General Internal Medicine 02/15/25 documented as of this encounter
--- OUTSIDE RECORDS SUMMARY | 2025-09-28 22:27 | XMS_ITS | Encounter Summary ---
Author Organization [facility] - [facility] Address [facility] [place] [address] Care Team Providers Care Pet Stylist Name Role Phone Taylor Sanchez MD Primary Care Provider [phone] Encounter Details Date Type Department Care Team (Late st Contact Info) Description 12/11/2023 Bioscience Vaccinest Message Enc [facility] Medical Group Multispecialty Care - [place] [address] [address] [address] [place] [address] [place] [address] [place] [address] [address] [place] [address] Dentist Work Social History Tobacco [...] place to sleep or slept in a group home (including now)? No 12/26/2022 Comments No [...] Assessment Author Status No 12/26/2022 1:13 PM CHOCOLATE PRODUCTION MACHINE OPERATOR Tricia Siddiqui RN Active * Do you have serious difficulty walking or climbing stairs? Answer Date of Assessment Author Status No 12/26/2022 1:13 PM CHOCOLATE PRODUCTION MACHINE OPERATOR Tricia Siddiqui RN Active * Do you have difficulty dressing or bathing? Answer Date of Assessment Author Status No 12/26/2022 1:13 PM CHOCOLATE PRODUCTION MACHINE OPERATOR Tricia Siddiqui RN Active * Because of a physical, mental, or emotional condition, do you have difficulty doing errands alone such as visiting a doctor's office or shopping? Answer Date of Assessment Author Status No 12/26/2022 1:13 PM CHOCOLATE PRODUCTION MACHINE OPERATOR Tricia Siddiqui RN Active documented as of this encounter Mental Status * Because of a physical, mental, or emotional condition, do you have serious difficulty concentrating, remembering, or making decisions? Answer Entry Date Author Status No 12/26/2022 1:13 PM CHOCOLATE PRODUCTION MACHINE OPERATOR Tricia Siddiqui RN Active documented in this encounter Plan of Treatment Upcoming Encounters Date Type Department Care Team (Late st Contact Info) Description 10/28/2025 8:00 AM CHOCOLATE PRODUCTION MACHINE OPERATOR Office Visit [facility] Medical Group Multispecialty Care - [place] [address] [address] [address] [place], [place] [address] Taylor Sanchez MD [address] [place] [address] documented as of this encounter Goals Goal [...] Total Score: 1 09/29/20 23 1:25 PM CHOCOLATE PRODUCTION MACHINE OPERATOR documented as of this encounter Care Teams Pet Stylist Relationship Specialty Start Date End Date Taylor Sanchez MD [address] [place] [address] PCP - General INTERNAL MEDICINE 06/18/22 documented as of this encounter
--- OUTSIDE RECORDS SUMMARY | 2025-09-28 22:27 | XMS_ITS | Encounter Summary ---
Author Organization [facility] - [facility] Address [facility] access hospital[address] [place] [address] Care Team Providers Care Risk And Insurance Manager Name Role Phone Taylor Sanchez MD Primary Care Provider [phone] Encounter Details Date Type Department Care Team (Latest Contact Info) Description 06/18/2024 CarePayment Message Enc [facility] Medical Group Multispecialty Care - [address] [place] [address] extraTKT, [facility] Provider ANNUAL PHYSICAL/FASTING LABS Social History Tobacco [...] st Contact Info) Description 10/28/2025 8:00 AM NURSE LEADER Office Visit [facility] Medical Group Multispecialty [place] [address] [address] [place] [address] Taylor Sanchez MD [address] [place] [address] documented as of this encounter Goals Goal [...] documented as of this encounter Care Teams Risk And Insurance Manager Relationship Specialty Start Date End Date Taylor Sanchez MD [address] [place] [address] PCP - General INTERNAL MEDICINE 06/18/22 documented as of this encounter
--- OUTSIDE RECORDS SUMMARY | 2025-09-28 22:27 | XMS_ITS | Encounter Summary ---
Author Organization [facility] - [facility] Address [facility] [place] [address] Care Team Providers Care Algology Teacher Name Role Phone Taylor Sanchez MD Primary Care Provider [phone] Encounter Details Date Type Department Care Team (Late st Contact Info) Description 06/20/2022 Trusted Opiniont Message Enc [facility] Medical Group Multispecialty Care - [place] [address] [address] [address] [place] [address] Taylor Sanchez MD [address] [facility] [address] [place] [address] Side Effects Social History Tobacco [...] st Contact Info) Description 10/28/2025 8:00 AM BOX MACHINE OPERATOR Office Visit [facility] Medical Group Multispecialty Care - [place] [address] [address] [address] [place], [place] [address] Taylor Sanchez MD [address] [place] [address] documented as of this encounter Visit Diagnoses Not on filedocumented in this encounter Care Teams Algology Teacher Relationship Specialty Start Date End Date Taylor Sanchez MD [address] [place] [id number] PCP - General INTERNAL MEDICINE 06/18/22 documented as of this encounter
--- OUTSIDE RECORDS SUMMARY | 2025-09-28 22:27 | XMS_ITS | Encounter Summary ---
Author Organization [facility] - [facility] Address [facility] [place] [address] Care Team Providers Care Press Catcher Name Role Phone Taylor Sanchez MD Primary Care Provider [phone] Encounter Details Date Type Department Care Team (Late st Contact Info) Description 05/26/2024 Bread Message Enc [facility] Medical Group Multispecialty Care - [address] [place] [address] Urgent Group, [facility] Provider ANNUAL PHYSICAL Social History Tobacco Use [...] place to sleep or slept in a assisted (including now)? No 12/26/2022 Comments No Sex [...] Assessment Author Status No 12/26/2022 1:13 PM CANDY PULLER Tricia Siddiqui RN Active * Do you have difficulty dressing or bathing? Answer Date of Assessment Author Status No 12/26/2022 1:13 PM CANDY PULLER Tricia Siddiqui RN Active * Because of a physical, mental, or emotional condition, do you have difficulty doing errands alone such as visiting a doctor's office or shopping? Answer Date of Assessment Author Status No 12/26/2022 1:13 PM CANDY PULLER Tricia Siddiqui RN Active documented as of this encounter Mental Status * Because of a physical, mental, or emotional condition, do you have serious difficulty concentrating, remembering, or making decisions? Answer Entry Date Author Status No 12/26/2022 1:13 PM CANDY PULLER Tricia Siddiqui RN Active documented in this encounter Plan of Treatment Upcoming Encounters Date Type Department Care Team (Late st Contact Info) Description 10/28/2025 8:00 AM CANDY PULLER Office Visit [facility] Medical Group Multispecialty Care - [place] [address] [address] [address] [place] [address] Taylor Sanchez MD [address] [place] [address] documented as of this encounter Goals Goal [...] Total Score: 1 09/29/20 23 1:25 PM CANDY PULLER documented as of this encounter Care Teams Press Catcher Relationship Specialty Start Date End Date Taylor Sanchez MD [address] [place] [address] PCP - General INTERNAL MEDICINE 06/18/22 documented as of this encounter
--- OUTSIDE RECORDS SUMMARY | 2025-09-28 22:27 | XMS_ITS | Encounter Summary ---
Author Organization [facility] Address [address] [place] [address] Care Team Providers Care Space Operations Name Role Phone Taylor Sanchez MD Primary Care Provider [phone] Encounter Details Date Type Department Care Team (Late st Contact Info) Description 03/26/2002 Outpatient Historical [facility] Pediatrics - [address] [facility] [address] [facility] [address] [address] Kurtis Soto MD NO ADDRESS ON FILE Social History Tobacco Use Types Packs/Day Years Used Date Smoking Tobacco: Never Assessed Comments Unknown Sex and Gender Information Value Date Recorded Sex Assigned at Not on file 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 [place] [address] documented as of this encounter Visit Diagnoses Not on filedocumented in this encounter Care Teams Space Operations Relationship Specialty Start Date End Date Taylor Sanchez MD [address] [place] [address] PCP - General Internal Medicine 02/15/25 documented as of this encounter
--- OUTSIDE RECORDS SUMMARY | 2025-09-28 22:27 | XMS_ITS | Encounter Summary ---
Author Organization [facility] Address [facility] [place] [address] Care Team Providers Care Speech Language Therapist Name Role Phone Taylor Sanchez MD Primary Care Provider [phone] Encounter Details Date Type Department Care Team (Late Contact Info) Description 06/25/2022 Eloquii Message Enc [facility] Medical Group Multispecialty Care - [address] [place], [place] [address] Exect, [facility] Provider Xray Result Social History Tobacco [...] (Late Contact Info) Description 10/28/2025 8:00 AM IMAGING TECHNOLOGIST Office Visit [facility] Medical Group Multispecialty Care - [place] [address] [address] [address] [place] [address] Taylor Sanchez MD [address] [address] documented as of this encounter Visit Diagnoses Not on filedocumented in this encounter Care Teams Speech Language Therapist Relationship Specialty Start Date End Date Taylor Sanchez MD [facility] [address] PCP - General INTERNAL MEDICINE 06/18/22 documented as of this encounter
--- OUTSIDE RECORDS SUMMARY | 2025-09-28 22:27 | XMS_ITS | Encounter Summary ---
Author Organization [facility] - [facility] Address [facility] [place] [address] Care Team Providers Care Fruit Thinner Name Role Phone Taylor Sanchez MD Primary Care Provider [phone] Encounter Details Date Type Department Care Team (Late Contact Info) Description 07/19/2022 Weekend-a-gogo Message Enc [facility] Medical Group Multispecialty Care - [address] [place], [place] [address] Travadort, [facility] Provider Tdap Social History Tobacco [...] (Late Contact Info) Description 10/28/2025 8:00 AM CURING FINISHER Office Visit [facility] Medical Group Multispecialty Care - [place] [address] [address] [address] [place] [address] Taylor Sanchez MD [address] [address] documented as of this encounter Visit Diagnoses Not on filedocumented in this encounter Care Teams Fruit Thinner Relationship Specialty Start Date End Date Taylor Sanchez MD [facility] [address] PCP - General INTERNAL MEDICINE 06/18/22 documented as of this encounter
--- OUTSIDE RECORDS SUMMARY | 2025-09-28 22:27 | XMS_ITS | Encounter Summary ---
Author Organization [facility] Address [address] [place] [address] Care Team Providers Care Production Control Scheduler Name Role Phone Taylor Sanchez MD Primary Care Provider [phone] Encounter Details Date Type Department Care Team (Late st Contact Info) Description 04/04/1999 Outpatient Historical [facility] Pediatrics [address] [facility] [address] [facility] [address] [address] Kurtis Soto MD NO ADDRESS ON FILE Social History Tobacco Use Types Packs/Day Years Used Date Smoking Tobacco: Never Assessed Comments Unknown Sex and Gender Information Value Date Recorded Sex Assigned at Not on file 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 [place] [address] documented as of this encounter Visit Diagnoses Not on filedocumented in this encounter Care Teams Production Control Scheduler Relationship Specialty Start Date End Date Taylor Sanchez MD [address] [place] [address] PCP - General Internal Medicine 02/15/25 documented as of this encounter
--- OUTSIDE RECORDS SUMMARY | 2025-09-28 22:27 | XMS_ITS | Encounter Summary ---
Author Organization [facility] Address [address] [place] [address] Care Team Providers Care Staff Field Engineer Name Role Phone Taylor Sanchez MD Primary Care Provider Encounter Details Date Type Department Care Team (Late st Contact Info) Description 01/31/1999 Outpatient Historical [facility] Pediatrics [address] [facility] [address] [facility] [address] [address] Kurtis Soto MD NO ADDRESS ON FILE Social History Tobacco Use Types Packs/Day Years Used Date Smoking Tobacco: Never Assessed Comments Unknown Sex and Gender Information Value Date Recorded Sex Assigned at Not on file Legal Sex Female 3:30 AM FILLING HAULER Gender Identity Not on file Sexual Orientation Not on file documented as of this encounter Plan of Treatment Upcoming Encounters Date Type Department Care Team (Late st Contact Info) Description 04/25/2026 2:15 PM CDT Office Visit [facility] Heart and Vascular - [address] [place] [address] Cesar Banda MD [address] [place] [address] documented as of this encounter Visit Diagnoses Not on filedocumented in this encounter Care Teams Staff Field Engineer Relationship Specialty Start Date End Date Taylor Sanchez MD [address] [place] [address] PCP - General Internal Medicine 02/15/25 documented as of this encounter
--- OUTSIDE RECORDS SUMMARY | 2025-09-28 22:27 | XMS_ITS | Encounter Summary ---
Author Organization [facility] - [facility] Address [facility] [place] [address] Care Team Providers Care Methods Analyst Data Processing Name Role Phone Taylor Sanchez MD Primary Care Provider [phone] Encounter Details Date Type Department Care Team (Late st Contact Info) Description 02/17/2025 Global Experiencet Message Enc [facility] Medical Group Multispecialty Care - [place] [address] [address] [place] [address] [place] [address] [place] [address] 157 [place] [address] Migraines Social History Tobacco Use [...] st Contact Info) Description 10/28/2025 8:00 AM CONTACT LENS FITTER Office Visit [facility] Medical Group Multispecialty Care - [place] [address] [address] [place], [place] [address] Taylor Sanchez MD [address] [place] [address] documented as of this encounter Goals Goal [...] documented as of this encounter Care Teams Methods Analyst Data Processing Relationship Specialty Start Date End Date Taylor Sanchez MD [address] [place] [address] PCP - General INTERNAL MEDICINE 06/18/22 documented as of this encounter
--- OUTSIDE RECORDS SUMMARY | 2025-09-28 22:27 | XMS_ITS | Encounter Summary ---
Author Organization [facility] Address [address] [place] [address] Care Team Providers Care Subway Guard Name Role Phone Taylor Sanchez MD Primary Care Provider [phone] Encounter Details Date Type Department Care Team (Late st Contact Info) Description 06/23/2002 Outpatient Historical [facility] Pediatrics - [address] [facility] [address] [facility] [address] [address] Kurtis Soto MD NO ADDRESS ON FILE Social History Tobacco Use Types Packs/Day Years Used Date Smoking Tobacco: Never Assessed Comments Unknown Sex and Gender Information Value Date Recorded Sex Assigned at Not on file Legal Sex Female 3:30 AM CAGE CLERK Gender Identity Not on file Sexual Orientation Not on file documented as of this encounter Plan of Treatment Upcoming Encounters Date Type Department Care Team (Late st Contact Info) Description 04/25/2026 2:15 PM CDT Office Visit [facility] Heart and Vascular - [address] [place] [address] Cesar Banda MD [address] [place] [address] documented as of this encounter Visit Diagnoses Not on filedocumented in this encounter Care Teams Subway Guard Relationship Specialty Start Date End Date Taylor Sanchez MD [address] [place] [address] PCP - General Internal Medicine 02/15/25 documented as of this encounter
--- OUTSIDE RECORDS SUMMARY | 2025-09-28 22:27 | XMS_ITS | Encounter Summary ---
Author Organization [facility] Address [address] [place] [address] Care Team Providers Care Medical Lab Scientist Name Role Phone Taylor Sanchez MD Primary Care Provider [phone] Encounter Details Date Type Department Care Team (Late st Contact Info) Description 09/17/[address] 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 Heart and Vascular - [address] [place] [address] Cesar Banda MD [address] [place] [address] documented as of this encounter Visit Diagnoses Not on filedocumented in this encounter Care Teams Medical Lab Scientist Relationship Specialty Start Date End Date Taylor Sanchez MD [address] [place] [address] PCP - General Internal Medicine 02/15/25 documented as of this encounter
--- OUTSIDE RECORDS SUMMARY | 2025-09-28 22:27 | XMS_ITS | Clinical Summary ---
Author Organization [facility] Address [address] [place] [address] Phone Care Team Providers Care Wood Carving Lathe Operator Name Role Phone Jacek Linn MD Primary Care Provider [phone] Allergies Active Allergy Reactions Criticality Noted Date Comments Penicillins Hives,Rash Medium 1994 [place] Tar Hives Medium 09/28/2022 Prednisolone Other (see [...] patient's age to complete this topic Insurance [place] [id number] Care Teams Wood Carving Lathe Operator Relationship Specialty Start Date End Date Jacek Linn MD [address] [facility] [address] [place] [address] PCP - General Internal Medicine 01/28/23
--- OUTSIDE RECORDS SUMMARY | 2025-09-28 22:27 | XMS_ITS | Encounter Summary ---
Author Organization [facility] Address Formerly [facility] [place] [address] Care Team Providers Care Container Washer Machine Name Role Phone Taylor Sanchez MD Primary Care Provider [phone] Encounter Details Date Type Department Care Team (Late st Contact Info) Description 03/18/2024 Aldis Message Enc [facility] Mult[facility] - [place] [address] [place] [address] Marylou Herrera, SUPERVISOR IN CIRCUIT TESTING [address] [place] [address] Make appointment Social History Tobacco [...] place to sleep or slept in a detention (including now)? No 12/26/2022 Comments No Sex [...] Assessment Author Status No 12/26/2022 1:13 PM NEW CAR MAKE READY WORKER Tricia Siddiqui RN Active * Do you [...] Assessment Author Status No 12/26/2022 1:13 PM NEW CAR MAKE READY WORKER Tricia Siddiqui RN Active documented as of [...] st Contact Info) Description 10/28/2025 8:00 AM NEW CAR MAKE READY WORKER Office Visit [facility] - [place] [address] [place] [address] Taylor Sanchez MD [address] [place] [address] documented as of this encounter Goals Goal [...] Total Score: 1 09/29/20 23 1:25 PM NEW CAR MAKE READY WORKER documented as of this encounter Care Teams Container Washer Machine Relationship Specialty Start Date End Date Taylor Sanchez MD [address] [address] PCP - General INTERNAL MEDICINE 06/18/22 documented as of this encounter
--- OUTSIDE RECORDS SUMMARY | 2025-09-28 22:27 | XMS_ITS | Encounter Summary ---
Author Organization [facility] Address [address] [place] [address] Care Team Providers Care Bindery Leadperson Name Role Phone Taylor Sanchez MD Primary Care Provider [phone] Encounter Details Date Type Department Care Team (Late st Contact Info) Description 06/29/2001 Outpatient Historical [facility] [address] [phone] Kurtis Soto MD NO ADDRESS ON FILE Social History Tobacco Use Types Packs/Day Years Used Date Smoking Tobacco: Never Assessed Comments Unknown Sex and Gender Information Value Date Recorded Sex Assigned at Not on file Legal Sex Female 3:30 AM TIE WORKER Gender Identity Not on file Sexual Orientation Not on file documented as of this encounter Plan of Treatment Upcoming Encounters Date Type Department Care Team (Late st Contact Info) Description 04/25/2026 2:15 PM CDT Office Visit [facility] - [place] [address] [place] [id number] Cesar Banda MD [address] [place] [phone] documented as of this encounter Visit Diagnoses Not on filedocumented in this encounter Care Teams Bindery Leadperson Relationship Specialty Start Date End Date Taylor Sanchez MD [address] [place] [address] PCP - General Internal Medicine 02/15/25 documented as of this encounter
--- OUTSIDE RECORDS SUMMARY | 2025-09-28 22:27 | XMS_ITS | Encounter Summary ---
Author Organization [facility] Address [address] [place] [address] Care Team Providers Care Safety Person Name Role Phone Taylor Sanchez MD Primary Care Provider [phone] Encounter Details Date Type Department Care Team (Late st Contact Info) Description 09/21/2002 Outpatient Historical [facility] Pediatric[facility] - [address] [facility] [facility] [address] [facility] [address] [address] Kurtis Soto MD NO ADDRESS ON FILE Social History Tobacco Use Types Packs/Day Years Used Date Smoking Tobacco: Never Assessed Comments Unknown Sex and Gender Information Value Date Recorded Sex Assigned at Not on file Legal Sex Female 3:30 AM FOSTER CARE SOCIAL WORKER Gender Identity Not on file Sexual Orientation Not on file documented as of this encounter Plan of Treatment Upcoming Encounters Date Type Department Care Team (Late st Contact Info) Description 04/25/2026 2:15 PM CDT Office Visit [facility] - [place] [address] [place] [phone] Cesar Banda MD [address] [place] [phone] documented as of this encounter Visit Diagnoses Not on filedocumented in this encounter Care Teams Safety Person Relationship Specialty Start Date End Date Taylor Sanchez MD [address] [place] [address] PCP - General Internal Medicine 02/15/25 documented as of this encounter
[2025-09-28 22:40] LABS: NT Pro B Type Natriuretic Pept 63 pg/mL (19.9-100)
[2025-09-28 22:46] VITALS: BP 100/64; PULSE 71; RESP 16; O2SAT 99
[2025-09-28 23:01] VITALS: BP 97/61; PULSE 69; RESP 13; O2SAT 98
[2025-09-28 23:03] LABS: Thyroid Stimulating Hormone Reflex 4.390 uIU/mL (0.465-4.68)
[2025-09-28 23:14] LABS: Influenza A QL RT-PCR Negative (Negative); Influenza B QL RT-PCR Negative (Negative); RSV RNA, RT-PCR Negative (Negative); SARS-CoV-2 RNA PCR Negative (Negative)
[2025-09-28 23:16] VITALS: BP 100/66; PULSE 69; RESP 14; O2SAT 99
[2025-09-28 23:46] VITALS: BP 95/67; PULSE 76; RESP 20; O2SAT 100
[2025-09-28 23:56] LABS: Free T4 Free Thyroxine Reflex 1.22 ng/dL (0.78-2.19)
[2025-09-29 00:17] LABS: Troponin I < 0.012 ng/mL (0.000-0.034)
[2025-09-29 00:18] VITALS: BP 106/64; PULSE 72; RESP 12; O2SAT 100
[2025-09-29 00:40] LABS: Total Triiodothyronine (T3) 1.30 NG/ML (0.82-1.58)
[2025-09-29 01:01] VITALS: BP 109/72; PULSE 70; RESP 14; O2SAT 98
[2025-09-29 01:51] LABS: BEDSIDEPREGUCG Negative (Negative)
[2025-09-29] MEDS: CYCLOBENZAPRINE HCL 10 MG TABLET PO (01:55)
[2025-09-29] MEDS: KETOROLAC 15 MG/ML VIAL (*BKC) IV PUSH (01:55)
== END 2025-09-29 02:00 | disposition home or self-care (01) ==
PROVIDERS: Student in an Organized Health Care Education/Training Program; Emergency Provider Registered Nurse; PCP Internal Medicine
DX: R07.89 Other chest pain (principal); M94.0 Chondrocostal junction syndrome [Tietze]; Z86.73 Personal history of transient ischemic attack (TIA), and cerebral infarction without residual deficits; Z20.822 Contact with and (suspected) exposure to COVID-19
CPT/HCPCS: 36415; 71046; 71275; 80053; 81025; 83690; 83880; 84439; 84443; 84480; 84484; 85025; 85380; 85610; 85730; 87637; 93005; 96374; 99284; A9270; J1885; Q9967